=== PATIENT | female | born 1925 | race Caucasian/White ===

== ENCOUNTER 2016-08-20 21:33 | Inpatient (IN) | payer OTHER, MEDICARE ==
[~2016-08-20] VITALS: Ht 152.4 cm; Wt 69.9 kg
[~2016-08-20 21:33] MED LIST: ADVAIR 250-501 EACH INH; ENALAPRIL MALEA10 M1 PO; FERROUS SULFAT325 M3 PO; FOLIC ACID1 M1 PO; GABAPENTIN300 M2 PO; HYDROCHLOROTHIA25 M1 PO; HYDROXYCHLOROQ200 M2 PO; NASONEX17 GM NASB; NEURONTIN600 M1 PO; NEXIUM40 M1 PO; PATADAY2.5 ML OPH; PREDNISONE2.5 M1 PO; PROAIR HFA8.5 GM INH; PROPRANOLOL HCL20 M1 PO; SERTRALINE HCL50 MG PO; SULFAZINE EC500 MG PO; TRAMADOL HCL50 M1 PO; TRAMADOL50 MG PO; TRAVATAN Z5 ML OPH; TRAZODONE HCL100 M1 PO; VOLTAREN100 GM TOP
--- NOTE | 2016-08-20 21:42 | ED GI/GU/ABDOMINAL COMPLAINT ---
History of Present Illness General Chief Complaint: General Adult Stated Complaint: BIBA RECTAL BLEEDING Source: patient, old records, EMS Exam Limitations: no limitations Allergies Coded Allergies: propoxyphene (08/11/15) Reconcile Medications Albuterol Sulfate (Proair Hfa) 8.5 GM HFA.AER.AD 2 PUF INH Q4-6 PRN PRN COPD (Reported) Carvedilol (Coreg) 6.25 MG TABLET 1 TAB PO BID HEART (Reported) Cholecalciferol (Vitamin D3) (Vitamin D) 1,000 UNIT CAPSULE 5 TAB PO DAILY SUPPLEMENT (Reported) Cyanocobalamin (Vitamin B-12) (Vitamin B-12) 100 MCG TABLET 1 TAB PO DAILY SUPPLEMENT (Reported) Diclofenac Sodium (Voltaren) 1 % GEL..GRAM. 1 GM TOP 4 TIMES/DAY PAIN ( Reported) apply to affected area(s) Diphenoxylate HCl/Atropine (Lomotil 2.5-0.025 MG Tablet) 2.5 MG-0.025 MG TABLET 1 TAB PO DAILY PRN DIARRHA (Reported) Docusate Sodium (Colace) 100 MG CAPSULE 1 CAP PO BID CONSTIPATION (Reported) Enalapril Maleate 10 MG TABLET 1 TAB PO DAILY HTN (Reported) Esomeprazole (Nexium) 40 MG CAPSULE.DR 1 CAP PO DAILY GERD (Reported) Ferrous Sulfate 325 MG TABLET 1 TAB PO DAILY SUPPLEMENT (Reported) Fluticasone/Salmeterol (Advair 250-50 Diskus) 1 EACH BLST.W.DEV 1 PUF INH BID COPD (Reported) Folic Acid 1 MG TABLET 1 TAB PO DAILY SUPPLEMENT (Reported) Furosemide (Lasix) 20 MG TABLET 1 TAB PO DAILY WATER PILL (Reported) Gabapentin (Neurontin) 600 MG TABLET 1 CAP PO BID NEUROPATHY (Reported) Hydrochlorothiazide 25 MG TABLET 1 TAB PO DAILY HTN (Reported) Hydroxychloroquine Sulfate 200 MG TABLET 1 TAB PO BID RHEUMATOID ARTHRITIS ( Reported) Mometasone Furoate (Nasonex) 17 GM SPRAY.PUMP 1-2 SPRAY NASB DAILY ALLERGY ( Reported) Olopatadine HCl (Pataday) 2.5 ML DROPS 1 GTT OPH DAILY PRN ALLERGY (Reported) Polyethylene Glycol 3350 (Miralax) 17 GRAM POWD.PACK 1 PAC PO DAILY CONSTIPATION (Reported) dissolve in water Sertraline HCl 50 MG TABLET 1 TAB PO DAILY DEPRESSION (Reported) Sulfasalazine (Sulfazine EC) 500 MG TABLET.DR 1 TAB PO BID GI (Reported) Tramadol HCl 50 MG TABLET 1 TAB PO BID PRN PAIN (Reported) Travoprost (Travatan Z) 5 ML DROPS 1 GTT OPH QPM GLAUCOMA (Reported) Trazodone HCl 100 MG TABLET 0.5 TAB PO QPM INSOMNIA (Reported) Triage Nurses Notes Reviewed? yes ? n Is pt currently ? No HPI: Patient is an 89-year-old female brought in by ambulance for evaluation of lower abdominal pain and rectal bleeding. Patient reports symptoms onset at approximately 9 AM this morning. Patient reports at least 20 episodes of bright red blood per rectum since onset. Patient reports she has a very small amount of stool some bright red blood. Patient is a sharp pain that worsens with palpation. Pain is currently severe. Patient denies fevers, chills, nausea, vomiting, lightheadedness, chest pain, dyspnea. (SELMA GLEASON,DEIRDRE) Vital Signs & Intake/Output Vital Signs & Intake/Output Vital Signs Date Time Temp Pulse Resp B/P Pulse O2 O2 Flow FiO2 Ox Delivery Rate 08/22 0400 07 Nasal 2.0L Cannula 08/22 0004 98.2 78 26 132/78 08/22 0000 95 Nasal 2.0L Cannula 08/22 0000 97.8 84 33 150/90 93 Nasal 2.0L Cannula 08/21 2000 92 08/21 1800 98.0 79 28 143/71 08/21 1759 97 Nasal 2.0L Cannula 08/21 1600 100 Nasal 4.0L Cannula 08/21 1600 98.0 84 28 144/74 100 Nasal 4.0L Cannula 08/21 1258 97.3 83 22 182/79 08/21 1156 98 Room Air Room Air 08/21 1128 Room Air Room Air 08/21 0954 98.4 78 18 173/74 100 Room Air ED Intake and Output 08/22 0000 08/21 1200 Intake Total 1334 100 Output Total 275 150 Balance 1059 -50 Intake, IV 1134 100 Intake, Oral 200 Number 4 Bowel Movements Output, Stool 150 Output, Urine 275 Patient 155 lb Weight Past History Medical History Any Pertinent Medical History? 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 No (DEIRDRE GARCIA) Review of Systems Review of Systems Constitutional: Denies: chills, fever. EENTM: Reports: no symptoms. Respiratory: Denies: cough, short of breath. Cardiovascular: Denies: chest pain. GI: Reports: see HPI. Genitourinary: Reports: no symptoms. Musculoskeletal: Reports: back pain (CHRONIC). Skin: Reports: no symptoms. Neurological/Psychological: Reports: no symptoms. Hematologic/Endocrine: Reports: see HPI, bleeding. Immunologic/Allergic: Reports: no symptoms. (DEIRDRE GARCIA) Physical Exam Physical Exam General Appearance: alert, awake Head: atraumatic, normal appearance Eyes: Bilateral: PERRL, EOMI, other (PALE CONJUNCTIVA). Ears, Nose, Throat, Mouth: hearing grossly normal, moist mucous membrane Neck: normal inspection, supple, full range of motion Respiratory: normal breath sounds, no respiratory distress, lungs clear Cardiovascular: regular rate/rhythm Gastrointestinal: normal bowel sounds, soft, SUPRAPUBIC AND LEFT LOWER QUADRANT TENDERNESS Rectal: EXTERNAL HEMORRHOID. mODERATE AMOUNT OF CHIP RED BLOOD IN THE RECTAL VAULT. Back: normal inspection, normal range of motion Extremities: normal range of motion Neurologic/Psych: awake, alert, oriented x 3, normal mood/affect Skin: warm/dry Core Measures ACS in differential dx? No Severe Sepsis Present: No Septic Shock Present: No (DEIRDRE GARCIA) Progress Differential Diagnosis: upper vs lower GI bleed, diverticulitis, anemia, sepsis Diagnostic Imaging: Viewed by Me: CT Scan. Discussed w/RAD: CT Scan. Radiology Impression: PATIENT: NILDA BERRY PRESENT AGE: 89 PATIENT ACCOUNT NO: [id number] : [birth year] LOCATION: [facility] ORDERING PHYSICIAN: DEIRDRE GLEASON SERVICE DATE: 08/20/16 EXAM TYPE: CAT - CT ABD & PELVIS ANGIOGRAM EXAMINATION: CT ABDOMEN AND PELVIS without and with CONTRAST. CTA abdomen and pelvis. CLINICAL INFORMATION: Rectal bleeding. Diverticular bleed. COMPARISON: CT abdomen pelvis 04/09/2016 TECHNIQUE : Helical CT scan of abdomen and pelvis. IV contrast: 115 mL Optiray 350 Oral contrast: None Reconstruction: Coronal and sagittal reformatted images performed at CT scanner by the technologist. FINDINGS: LUNG BASES: The visualized lung bases are unremarkable. LIVER, GALLBLADDER, AND BILIARY TREE: The liver is normal in size, shape, and attenuation. No focal hepatic lesion or biliary ductal dilatation is present. Gallbladder surgically absent. No bile duct dilatation. PANCREAS: No acute change of the pancreas. No mass. No pancreatic duct dilatation. SPLEEN: Spleen normal in size and contour. No focal lesion. ADRENAL GLANDS: Mildly enlarged left adrenal gland unchanged since prior study. KIDNEYS AND URETERS: Bilateral renal cysts. Stable since prior exam. This includes low attenuating and hyperattenuating cysts. Mild cortical thinning of both kidneys. There is no renal or ureteral calculus. BLADDER: Unremarkable. GASTROINTESTINAL TRACT: Marked diverticulosis of the left colon and sigmoid with numerous scattered diverticula in the right colon. There is mucosal thickening at the mid sigmoid without edema of the pericolonic fat. A mild diverticulitis though could be present. No perforation or abscess. No bowel obstruction. On the postcontrast images there is no definite extravasation of the contrast into the lumen but there is a prominent enhancing vessel along the mesenteric side of the colon at the proximal sigmoid in the area of mucosal thickening, coronal image 72 (604), sagittal image 52 (605). This is suspicious for site of gastrointestinal hemorrhage. MESENTERY: No edema or inflammation of the mesentery. No free air or free fluid. ABDOMINAL WALL: Fat-containing umbilical hernia. Herniated fat pocket measures 6 x 3 x 5 cm. LYMPH NODES: Normal. VASCULAR: Atherosclerotic vascular wall calcifications of aorta and iliac arteries without aneurysm. PELVIC VISCERA: Multiple calcified fibroids of uterus. No adnexal abnormality. OSSEOUS STRUCTURES: Marked multilevel degenerative spondylosis of spine with disc height narrowing and endplate spurs and facet joint arthrosis. Levoscoliosis of lumbar spine. Bilateral compression screws in the right and left proximal femur. This does cause streak artifact through the lower pelvis. IMPRESSION: 1. Marked diverticulosis of the sigmoid colon with mild submucosal thickening but no significant edema of the pericolonic fat. A mild diverticulitis however is not excluded. 2. No pooling of contrast in the lumen to define intraluminal hemorrhage but there is a prominent vessel in the area of the marked diverticulosis of the proximal sigmoid colon which is suspicious for site of gastrointestinal hemorrhage. This critical result was discussed with PA. Morin on 08/21/2016, 11:15 PM and it was ascertained that the content and urgency of the report was understood at the time of direct communication. DICTATED BY: MAHAMED FIELD MD DATE/TIME DICTATED:2250 CANDLE EXTRUSION MACHINE OPERATOR:ROSA DATE/TIME TRANSCRIBED:08/20/162250 CONFIDENTIAL, DO NOT COPY WITHOUT APPROPRIATE AUTHORIZATION. <Electronically signed in Other Vendor System> SIGNED BY: MAHAMED FIELD MD 08/20/162320 Initial ED EKG: normal sinus rhythm at 83 bpm right bundle branch block, left anterior fascicular block, no acute ST/T-wave changes compared to previous EKG Prior EKG: unchanged (DEIRDRE GARCIA) Plan of Care: Orders Procedure Date/time Status ICU LAB BUNDLE 08/22 0500 Complete CBC WITHOUT DIFFERENTIAL 08/22 0500 Complete Clear Liquid Diet 08/21 L Active CBC WITHOUT DIFFERENTIAL 08/21 2200 Complete OXYGEN SETUP (GEN) 08/21 1758 Complete CBC WITHOUT DIFFERENTIAL 08/21 1400 Complete Wound Care/Dressing 08/21 1145 Complete Weight 08/21 1145 Active VTE Mechanical Prophylaxis 08/21 1145 Active Vital Signs 08/21 1145 Active Turn and Reposition 08/21 1145 Active Drains/Tubes 08/21 1145 Complete Teach/Educate 08/21 1145 Active Skin Integrity Protocol 08/21 1145 Active Skin/Pressure Ulcer Assess (Sk 08/21 1145 Active Precautions 08/21 1145 Active Pain Treatment and Response 08/21 1145 Active Nutritional Intake, Monitor 08/21 1145 Active Isolation 08/21 1145 Active CIWA 08/21 1145 Complete Patient Care Conference 08/21 1145 Active Activity/Ambulation 08/21 1145 Active RT: Evaluation 08/21 1128 Active CBC WITHOUT DIFFERENTIAL 08/21 1011 Complete VRE ACTIVE SURVIELLANCE 08/21 0857 Active ACTIVE SURVEILLANCE NARES 08/21 0857 Active THERAPIST ORDERS 08/21 UNK Complete PHARMACY COMMUNICATION FORM 08/21 UNK Active Current Medications Sig/Raza Start time Last Medication Dose Stop Time Status Admin Acetaminophen 650 MG Q6P PRN 08/21 004 AC (Tylenol) Naphazoline HCl/ 1 GTT DAILY NEEDED PRN 08/21 14 AC Pheniramine Maleate (Visine-A) Tramadol HCl 50 MG BID PRN 08/21 14 AC (Ultram) Laboratory Tests 08/22/16 0400: Anion Gap 6, Estimated GFR > 60, Glucose 80, Calcium 8.1 L, Phosphorus 3.2, Magnesium 1.4 L, Total Bilirubin 0.4, AST 37 H, ALT 33, Albumin 2.5 L, CBC w Diff NO MAN DIFF REQ, RBC 2.65 L, MCV 89.9, MCH 30.0, RDW 16.4 H, MPV 8.7, Gran % 73.9, Lymphocytes % 10.5 L, Monocytes % 10.5 H, Eosinophils % 4.8, Basophils % 0.3, Absolute Granulocytes 6.2, Absolute Lymphocytes 0.9 L, Absolute Monocytes 0.9 H, Absolute Eosinophils 0.4, Absolute Basophils 0, PUBS MCHC 33.3 08/21/16 2205: CBC w Diff NO MAN DIFF REQ, RBC 3.19 L, MCV 88.1, MCH 29.4, RDW 16.1 H, MPV 7.8, Gran % 76.4 H, Lymphocytes % 9.5 L, Monocytes % 8.7, Eosinophils % 4.3, Basophils % 1.1, Absolute Granulocytes 7.6 H, Absolute Lymphocytes 1.0 L, Absolute Monocytes 0.9 H, Absolute Eosinophils 0.4, Absolute Basophils 0.1, PUBS MCHC 33.3 08/21/16 1405: CBC w Diff NO MAN DIFF REQ, RBC 3.00 L, MCV 89.1, MCH 29.0, RDW 16.0 H, MPV 7.5, Gran % 72.3, Lymphocytes % 12.8 L, Monocytes % 9.4 H, Eosinophils % 5.3 H, Basophils % 0.2, Absolute Granulocytes 6.0, Absolute Lymphocytes 1.1 L, Absolute Monocytes 0.8 H, Absolute Eosinophils 0.4, Absolute Basophils 0, PUBS MCHC 32.6 L 08/21/16 1040: Troponin I 0.02, CBC w Diff NO MAN DIFF REQ, RBC 3.20 L, MCV 88.3, MCH 29.7, RDW 15.8 H, MPV 7.4, Gran % 68.4, Lymphocytes % 18.5 L, Monocytes % 8.6, Eosinophils % 4.3, Basophils % 0.2, Absolute Granulocytes 7.7 H, Absolute Lymphocytes 2.1, Absolute Monocytes 1.0 H, Absolute Eosinophils 0.5, Absolute Basophils 0, PUBS MCHC 33.6 08/21/16 1000: CBC w Diff Cancelled, WBC Cancelled, RBC Cancelled, Hgb Cancelled, Hct Cancelled , MCV Cancelled, MCH Cancelled, RDW Cancelled, Plt Count Cancelled, MPV Cancelled, PUBS MCHC Cancelled Microbiology 08/21 1120 UPPER RESP: Surveillance Culture - RECD 08/21 1105 GI: Surveillance Culture - RECD 08/20/2016 10:17:52 PM: Discussed with and seen by Dr. Worley. Previous hemoglobin 10.0, hemoglobin currently 7.8. GI paged to discuss. Results of complete blood count cell count discussed with patient. Remaining blood work pending. Plan for admission. 08/20/2016 10:23:33 PM: Discussed with Dr. Roque: obtain CT angio abdomen/ pelvis, admit to ICU. Patient should be given bowel prep overnight. Will see patient in the morning. Have house staff call immediately if any worsening of clinical condition. 08/20/2016 10:49:02 PM: Patient feeling chest heaviness and dyspnea after her CT scan. Lungs clear to auscultation, no signs of anaphylaxis on exam. Repeat EKG ordered. Patient has received IV contrast previously with no adverse reaction. Discussed Dr. Rizzo(with Dr. Worley present): will admit to ICU (DEIRDRE GARCIA) Comments: 08/20/2016 10:38:08 PM patient's case discussed with . Patient will be admitted to the intensive care unit that request of Dr. Wolfe. (BUSHRA MARINELLI,PARI Buck) Departure Departure Disposition: STILL A PATIENT Condition: Guarded Clinical Impression Primary Impression: Lower GI bleed Referrals: RADHA PLASCENCIA MD (PCP) Departure Forms: Customer Survey General Discharge Information (DEIRDRE GARCIA) Admission Note Spoke With: SRI RIZZO MD Documentation of Exam: Documentation of any treatments & extenuating circumstances including Concerns Regarding Discharge (functional status, medication knowledge or non-compliance, living conditions, etc.) that warrant an admission rather than observation: Given the patient's story of diverticulosis and her clinical presentation, the patient is likely suffering from a diverticular bleeding episode. Given her advanced age and medical comorbidities I feel she is at high risk of continued blood loss and hypotension and exsanguination. This makes her a poor candidate for outpatient management as it is very likely she would have great difficulty in compliance with outpatient treatmlent. It is my opinion that she requires close clinical monitoring in the intensive care unit. Serial blood pressures, serial blood counts and monitoring of patient's bleeding volume should be monitored and treated accordingly. GI consultation should be obtained. Patient will likely require a CTA of the abdomen and pelvis and a colonoscopy. Given the above the patient will require a multiple day hospitalization. PA/WET ROLLER Co-Sign Statement Statement: ED Attending supervision documentation- [x] I saw and evaluated the patient. I have also reviewed all the pertinent lab results and diagnostic results. I agree with the findings and the plan of care as documented in the PA's/WET ROLLER's documentation. [] I have reviewed the ED Record and agree with the PA's/WET ROLLER's documentation. [] Additions or exceptions (if any) to the PAs/WET ROLLER's note and plan are summarized below: [] (BUSHRA MARINELLI,PARI Buck) Critical Care Note Critical Care Note Critical Care Time: 30-74 min (DEIRDRE GARCIA)
--- NOTE | 2016-08-20 22:02 | NUR ---
PT C/O LLQ ABDOMINAL PAIN AND 20 EPISODES OF BLOODY STOOLS ONSET TODAY. PT DENIES DIARRHEA. PT REPORTS BM "SMALL PIECES" PT A/O X4. RESP UNLABORED. NSR SKIN WARM AND DRY. UNDERWEAR STAINED WITH BLOOD. PT DENIES CP, SOB, N/V, WEAKNESS AND DIZZINES
--- NOTE | 2016-08-20 22:02 | NUR ---
PT [facility]IB[facility] FROM [facility]. PER EMS PT HAVING RECTAL BLEEDING AND ABDOMINAL PAIN TODAY.
[2016-08-20 22:08] LABS: ABSOLUTE BASOPHIL COUNT 0.1 /CUMM (0.0-0.2); ABSOLUTE EOSINOPHIL COUNT 0.6 /CUMM (0.0-0.7); ABSOLUTE GRANULOCYTE CT 7.8 /CUMM (1.4-6.5); ABSOLUTE MONOCYTE COUNT 0.9 /CUMM (0.10-0.60); EOSINOPHIL % 5.3 % (0-5); MEAN CORPUSCULAR HGB 28.8 PG (27.0-31.0); MEAN CORPUSCULAR HGB CONC 32.4 G/DL (33.0-37.0); MEAN CORPUSCULAR VOLUME 88.8 FL (81.0-99.0); MEAN PLATELET VOLUME 7.7 FL (7.4-10.4); PLATELET COUNT 255 /CUMM (130-400); RBC DISTRIBUTION WIDTH 17.2 % (11.5-14.5); WHITE BLOOD CELL COUNT 11.4 /CUMM (4.8-10.8)
[2016-08-20 22:14] LABS: PT 12.2 SEC (9.4-12.5)
--- NOTE | 2016-08-20 22:22 | NUR ---
PT C/O 03/18 PAIN. PT MEDICATED WITH MORPHINE PER ORDER
--- NOTE | 2016-08-20 22:56 | NUR ---
PT BACK FROM CT. TOLERATED WELL
--- NOTE | 2016-08-20 23:21 | CT SCAN REPORT ---
EXAMINATION: CT ABDOMEN AND PELVIS without and with CONTRAST. CTA abdomen and pelvis. CLINICAL INFORMATION: Rectal bleeding. Diverticular bleed. COMPARISON: CT abdomen pelvis 04/09/2016 TECHNIQUE: Helical CT scan of abdomen and pelvis. IV contrast: 115 mL Optiray 350 Oral contrast: None Reconstruction: Coronal and sagittal reformatted images performed at CT scanner by the technologist. FINDINGS: LUNG BASES: The visualized lung bases are unremarkable. LIVER, GALLBLADDER, AND BILIARY TREE: The liver is normal in size, shape, and attenuation. No focal hepatic lesion or biliary ductal dilatation is present. Gallbladder surgically absent. No bile duct dilatation. PANCREAS: No acute change of the pancreas. No mass. No pancreatic duct dilatation. SPLEEN: Spleen normal in size and contour. No focal lesion. ADRENAL GLANDS: Mildly enlarged left adrenal gland unchanged since prior study. KIDNEYS AND URETERS: Bilateral renal cysts. Stable since prior exam. This includes low attenuating and hyperattenuating cysts. Mild cortical thinning of both kidneys. There is no renal or ureteral calculus. BLADDER: Unremarkable. GASTROINTESTINAL TRACT: Marked diverticulosis of the left colon and sigmoid with numerous scattered diverticula in the right colon. There is mucosal thickening at the mid sigmoid without edema of the pericolonic fat. A mild diverticulitis though could be present. No perforation or abscess. No bowel obstruction. On the postcontrast images there is no definite extravasation of the contrast into the lumen but there is a prominent enhancing vessel along the mesenteric side of the colon at the proximal sigmoid in the area of mucosal thickening, coronal image 72 (604), sagittal image 52 (605). This is suspicious for site of gastrointestinal hemorrhage. MESENTERY: No edema or inflammation of the mesentery. No free air or free fluid. ABDOMINAL WALL: Fat-containing umbilical hernia. Herniated fat pocket measures 6 x 3 x 5 cm. LYMPH NODES: Normal. VASCULAR: Atherosclerotic vascular wall calcifications of aorta and iliac arteries without aneurysm. PELVIC VISCERA: Multiple calcified fibroids of uterus. No adnexal abnormality. OSSEOUS STRUCTURES: Marked multilevel degenerative spondylosis of spine with disc height narrowing and endplate spurs and facet joint arthrosis. Levoscoliosis of lumbar spine. Bilateral compression screws in the right and left proximal femur. This does cause streak artifact through the lower pelvis. IMPRESSION: 1. Marked diverticulosis of the sigmoid colon with mild submucosal thickening but no significant edema of the pericolonic fat. A mild diverticulitis however is not excluded. 2. No pooling of contrast in the lumen to define intraluminal hemorrhage but there is a prominent vessel in the area of the marked diverticulosis of the proximal sigmoid colon which is suspicious for site of gastrointestinal hemorrhage. This critical result was discussed with PA. Morin on 08/21/2016, 11:15 PM and it was ascertained that the content and urgency of the report was understood at the time of direct communication.
--- NOTE | 2016-08-20 23:48 | History & Physical ---
ORACIO REYNOLDS MD 08/20/16 6208: General Information and HPI MD Statement: I have seen and personally examined NILDA BERRY and documented this H&P. The patient is a 89 year old F who presented with a patient stated chief complaint of rectal bleeding. Source of Information: patient, old records Exam Limitations: no limitations History of Present Illness: Ms. 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 As per patient, yesterday she had sudden onset of 8/10 lower abdominal/left lower quadrant pain that was non-radiating and associated with a general feeling of malaise. This pain persisted until this morning when around 9 AM she had the first of about 20 bowel movements with bright red blood. She has never experienced this before, is not currently on anticoagulation/aspirin and noted no rectal pain on defecation. Patient denied clots in her stool. Associated symptoms include malaise, mild shortness of breath, lower abdominal pain and bright red blood per rectum. She currently denies fever, chills, chest pain, palpitations, cough, nausea, vomiting, hemoptysis, dysuria, hematuria or lower extremity weakness. Social history is negative for tobacco (current or prior), alcohol or illicit drug use. She lives alone and uses a walker to ambulate. Patient has had several colonoscopies in the past which have shown begnin polyps; the most recent was about 5 years ago. Patient reports her code status as DNR/DNI. Allergies/Medications Allergies: Coded Allergies: propoxyphene (08/11/15) Home Med list Albuterol Sulfate (Proair Hfa) 8.5 GM HFA.AER.AD 2 PUF INH Q4-6 PRN PRN COPD (Reported) Carvedilol (Coreg) 6.25 MG TABLET 1 TAB PO BID HEART (Reported) Cholecalciferol (Vitamin D3) (Vitamin D) 1,000 UNIT CAPSULE 5 TAB PO DAILY SUPPLEMENT (Reported) Cyanocobalamin (Vitamin B-12) (Vitamin B-12) 100 MCG TABLET 1 TAB PO DAILY SUPPLEMENT (Reported) Diclofenac Sodium (Voltaren) 1 % GEL..GRAM. 1 GM TOP 4 TIMES/DAY PAIN ( Reported) apply to affected area(s) Diphenoxylate HCl/Atropine (Lomotil 2.5-0.025 MG Tablet) 2.5 MG-0.025 MG TABLET 1 TAB PO DAILY PRN DIARRHA (Reported) Docusate Sodium (Colace) 100 MG CAPSULE 1 CAP PO BID CONSTIPATION (Reported) Enalapril Maleate 10 MG TABLET 1 TAB PO DAILY HTN (Reported) Esomeprazole (Nexium) 40 MG CAPSULE.DR 1 CAP PO DAILY GERD (Reported) Ferrous Sulfate 325 MG TABLET 1 TAB PO DAILY SUPPLEMENT (Reported) Fluticasone/Salmeterol (Advair 250-50 Diskus) 1 EACH BLST.W.DEV 1 PUF INH BID COPD (Reported) Folic Acid 1 MG TABLET 1 TAB PO DAILY SUPPLEMENT (Reported) Furosemide (Lasix) 20 MG TABLET 1 TAB PO DAILY WATER PILL (Reported) Gabapentin (Neurontin) 600 MG TABLET 1 CAP PO BID NEUROPATHY (Reported) Hydrochlorothiazide 25 MG TABLET 1 TAB PO DAILY HTN (Reported) Hydroxychloroquine Sulfate 200 MG TABLET 1 TAB PO BID RHEUMATOID ARTHRITIS ( Reported) Mometasone Furoate (Nasonex) 17 GM SPRAY.PUMP 1-2 SPRAY NASB DAILY ALLERGY ( Reported) Olopatadine HCl (Pataday) 2.5 ML DROPS 1 GTT OPH DAILY PRN ALLERGY (Reported) Polyethylene Glycol 3350 (Miralax) 17 GRAM POWD.PACK 1 PAC PO DAILY CONSTIPATION (Reported) dissolve in water Sertraline HCl 50 MG TABLET 1 TAB PO DAILY DEPRESSION (Reported) Sulfasalazine (Sulfazine EC) 500 MG TABLET.DR 1 TAB PO BID GI (Reported) Tramadol HCl 50 MG TABLET 1 TAB PO BID PRN PAIN (Reported) Travoprost (Travatan Z) 5 ML DROPS 1 GTT OPH QPM GLAUCOMA (Reported) Trazodone HCl 100 MG TABLET 0.5 TAB PO QPM INSOMNIA (Reported) Compliance With Home Meds: FAIR Past History Medical History Neurological: NEUROPATHY TREMORS, ESSENTIAL EENT: NONE Cardiovascular: hypertension Respiratory: COPD, Gastrointestinal: irritable bowel syndrome Hepatic: NONE Renal: NONE Musculoskeletal: OSTEOARTHRITIS RHEUMATOID ARTHRITIS BACK FRACTURE Psychiatric: DEPRESSION, ANXIETY Endocrine: PREDIABETES Blood Disorders: IRON DEFIENCY ANEMIA Cancer(s): NONE NEWS PRODUCER/Reproductive: NONE History of MRSA: Yes History of VRE: No History of CDIFF: No Surgical History Surgical History: BILAT HIP AND BILAT WRIST Past Family/Social History Psychosocial History Who Do You Live With? self Services at Home: None Primary Language: Maori Smoking Status: Never Smoked ETOH Use: denies use Illicit Drug Use: denies illicit drug use Living Will? yes Functional Ability ADLs Independent: dressing, eating, toileting, bathing. Ambulation: walker IADLs Independent: shopping, housework, finances, food prep, telephone, transportation , medication admin. Review of Systems Review of Systems Constitutional: Reports: malaise. Denies: chills, diaphoresis, fever. EENTM: Denies: visual changes, hearing changes, nasal congestion, throat pain. Cardiovascular: Denies: chest pain, palpitations, syncope. Respiratory: Reports: short of breath. Denies: cough, sputum production, wheezing. GI: Reports: abdominal pain, bloody stool. Denies: bloating, constipation, diarrhea , nausea, vomiting. Genitourinary: Denies: dysuria, hematuria. Musculoskeletal: Denies: back pain. Skin: Denies: erythema, rash. Neurological/Psychological: Denies: ataxia, confusion, headache, numbness, tingling. Hematologic/Endocrine: Denies: bruising, polyuria. Immunologic/Allergic: Denies: splenectomy. All Other Systems: Reviewed and Negative Exam & Diagnostic Data Last 24 Hrs of Vital Signs/I&O Vital Signs Date Time Temp Pulse Resp B/P Pulse O2 O2 Flow FiO2 Ox Delivery Rate 08/20 2257 87 18 142/75 95 Room Air 08/20 2135 96.2 92 18 145/64 95 Room Air Intake & Output 08/21 0800 08/21 0000 08/20 1600 Intake Total 50 Output Total Balance 50 Intake, IV 50 Physical Exam General Appearance Alert, Oriented X3, Cooperative, Mild Distress Skin Generalized pallor without lesion or rash. HEENT Atraumatic, PERRLA, EOMI, Mucous Membr. moist/pink, Arcus senilis Neck Supple, No JVD, No thryomegaly, +2 Carotid Pulse wo Bruit Lymphatic Cervical nl Cardiovascular Normal S1, Normal S2, +systolic murmur, 2/6 Lungs Clear to Auscultation, Normal Air Movement Abdomen Normal Bowel Sounds, Lower abdominal/LLQ tenderness on palpation. No rebound. Neurological Normal Speech, Normal Tone Extremities No Clubbing, No Cyanosis, No tenderness to palpation bilaterally. Vascular Pulses Symmetrical Last 24 Hrs of Labs/Herb: Laboratory Tests 08/20/16 2200: Anion Gap 8, Estimated GFR 39 L, BUN/Creatinine Ratio 20.8, Glucose 97, Lactic Acid 0.9, Calcium 9.5, Total Bilirubin 0.4, AST 39 H, ALT 33, Alkaline Phosphatase 142 H, Troponin I 0.02, Total Protein 5.7 L, Albumin 3.3 L, Globulin 2.4, Albumin/Globulin Ratio 1.4, PT 12.2, INR 1.16, CBC w Diff NO MAN DIFF REQ, RBC 2.70 L, MCV 88.8, MCH 28.8, RDW 17.2 H, MPV 7.7, Gran % 68.0, Lymphocytes % 17.8 L, Monocytes % 7.9, Eosinophils % 5.3 H, Basophils % 1.0, Absolute Granulocytes 7.8 H, Absolute Lymphocytes 2.0, Absolute Monocytes 0.9 H, Absolute Eosinophils 0.6, Absolute Basophils 0.1, PUBS MCHC 32.4 L Microbiology 08/20 2350 BLOOD: Blood Culture - ORD 08/20 2350 BLOOD: Blood Culture - ORD Diagnostic Data EKG Results NSR HR 83 with PSCs, LAFB, RBBB, QTC 447, inverted T waves in V1, V3, III, aVF. Other Results Abdomen/Pelvis CT: IMPRESSION: 1. Marked diverticulosis of the sigmoid colon with mild submucosal thickening but no significant edema of the pericolonic fat. A mild diverticulitis however is not excluded. 2. No pooling of contrast in the lumen to define intraluminal hemorrhage but there is a prominent vessel in the area of the marked diverticulosis of the proximal sigmoid colon which is suspicious for site of gastrointestinal Assessment/Plan Assessment: Ms. Berry is an 89 year old female with PMH COPD not on home oxygen, HTN, rheumatoid arthritis, GERD, hiatal hernia, spastic esophagus, lactose intolerance, iron deficiency anemia, depression, glaucoma and insomnia with presents with chief complaint of lower abdominal pain and bright red blood per rectum. This lower abdominal pain began suddenly yesterday and persistent until this morning when she had several bloody bowel movements. Associated symptoms included lethargy and mild shortness of breath. In the ED: Vital signs showed T 96.2, HR 92, RR 18, BP 145/64 and O2 saturation of 95% on room air. CBC was significant for mild leukocytosis to 11.4 without bandemia and BEP was significant for BUN/cre 27/1.3. ASt 39, alk phos 142, and INR 1.16. CTA abdomen/pelvis showed marked diverticulosis of the sigmoid colon with mild submucosal thickening but no significant edema of the pericolonic fat. A mild diverticulitis however is not excluded. No pooling of contrast in the lumen to define intraluminal hemorrhage but there is a prominent vessel in the area of the marked diverticulosis of the proximal sigmoid colon which is suspicious for site of gastrointestinal hemorrhage. Patient is admitted to the intesive care unit and the following is the management: 1. Lower GI Bleed with Acute Blood Loss Anemia * Continuous telemetry monitoring in the ICU * 2 large bore IVs * Patient typed & screened and blood transfusion consent obtained in the ED * With H&H low to 7.8/24 (goal Hgb 8), will order 1 U PRBC and follow up repeat CBC Q4 hours * GI suggested NPO status with golytely for prepartion of colonoscopy tomorrow ( likely embolization) * IVF with normal saline at 150 cc/h (once blood is hung will lower rate to 75 cc/h) * IV flagyl and ceftriaxone as CTA showed inflammatory changes of the bowel and white count slightly elevated * Follow blood cultures x 2, monitor for fevers * Morphine for severe pain, IV protonix 40 mg daily, sulfasalazine 2. Rule out ACS * Patient currently denies chest pain or ischemic symptoms, however in setting of acute blood loss anemia and many medical comorbidities, will rule out ACS * Troponin/EKG x 3 * Continuous telemetry monitoring 3. History of HTN * Hold all hypertensives for now in setting of active bleeding * Monitor vital signs closely and once patient no longer bleeding consider reinstituting antihypertensives slowly 4. COPD * Patient currently stable on room air * Monitor oxygen saturation and provide supplemental O2/TRC nebs as needed * Continue symbicort 5. History of iron deficiency anemia * Iron panel ordered, f/u results * Resume ferrous sulfate daily after patient started on regular diet DNR/DNI DVTP: ALPS NPO pending GI intervention Mild to severe pain pathway As Ranked By This Provider Problem List: 1. Lower GI bleed 2. COPD 3. Benign essential hypertension 4. Acute blood loss anemia 5. GERD (gastroesophageal reflux disease) 6. Spastic esophagus Core Measures/Miscellaneous Acute Coronary Syndrome ACS Diagnosis: No Cerebrovascular Accident CVA/TIA Diagnosis: No Congestive Heart Failure CHF Diagnosis: No Venous Thromboembolism VTE Risk Factors: Acute medical illness, Age > 40, Obesity No [facility] prophylaxis d/t: No contraindications No VTE Pharm Prophylaxis d/t: No contraindications VTE Diagnosis: No VTE Type: NONE VTE Confirmed by (Test): NONE Severe Sepsis Severe Sepsis Present: No Septic Shock Septic Shock Present: No Miscellaneous Documentation Attending Case Discussed With: SRI GREEN MD Primary Care Physician: RADHA PLASCENCIA MD Patient sees these Specialists Gastroenterology, phyisican unknown. Level of Patient Care: Critical Care (CRI) NICOLAS PAYNE 08/21/16 0102: Resident Review Statement Resident Statement: examined this patient, discussed with international marketing executive, agreed with international marketing executive, amended to note Other Findings: 89-year-old female with past medical history of rheumatoid arthritis, hypertension, COPD?, IBS, IRON deficiency anemia, T12 compression fracture, insomnia, GERD, depression and anxiety nd to the hospital with chief complaint of abdominal pain and multiple episodes of blood per rectum. Patient reported she reports having abdominal pain since yesterday which gotten worse and since this morning, she started having bloody stools and subsequently bright red blood per rectum for at least 20 times with sustained abdominal pain. Patient denies any nausea, vomiting, fevers, chills, recent outside fluid intake. However she does report of feeling weak and to shortness of breath today. Patient reported Multiple colonoscopies before and she does report of some bowel problems?, And to had a last colonoscopy was less than 5 years ago and showed some polyps. However there are no information available about the colonoscopy in the [facility] system for now. Vital signs on admission were stable Patient is alert and oriented but in pain Headache atraumatic Dry mucosa Heart NL s1 s2 systolic murmur chest clear bilaterally Lower abdominal tenderness without any rebound Bilateral at least 2+ lower extremities edema rectal exam was reportedly showed external hemorrhoids and BRBPR Hemoglobin 7.8, to 11.4, creatinine 1.3, BUN 27, AST 39, ALP 142 EKG showed sinus rhythm, 83, RBBB, LAFB, QTC 447, inverted T's in V1 V3, lead 3, lead 2 abdomen CTA IMPRESSION: 1. Marked diverticulosis of the sigmoid colon with mild submucosal thickening but no significant edema of the pericolonic fat. A mild diverticulitis however is not excluded. 2. No pooling of contrast in the lumen to define intraluminal hemorrhage but there is a prominent vessel in the area of the marked diverticulosis of the proximal sigmoid colon which is suspicious for site of gastrointestinal hemorrhage. Assessment and plan #Lower GI bleeding with possible diverticulitis -Admit to ICU -2 IV lines -Transfuse blood to keep hemoglobin over 8 -Dr. Roque already aware, will scope tomorrow -Normal saline for now 150 mL per hour and then while getting the transfusion 75 mL per hour -IV PPI daily -Check iron studies -Bowel prep -Continue iron pills,Sulfasalazine -NPO for now -Hold all antihypertensive medications and Lasix -CBC every 4 hours for now -Flagyl was every 8 hours and ceftriaxone daily for now -Blood cultures 2 -IV morphine for severe pain #weakness mild shortness of breath -EKG troponin 3 #Depression -Hold sertraline and trazodone for now #RA -Continue hydroxychloroquine #abNormal LFTs -ICU bundle in the morning -possibly due to inflammation of the bowels #Multiple medication in the med list -We help most of the patient's unnecessary medications for tomorrow. They can be restarted after the colonoscopy. DNR/DNI, NPO, DVT prophylaxis is Alps, Tylenol and morphine for pain NORMA,AARNADIA 08/21/16 0506: Attending MD Review Statement Attending Statement Attending MD Statement: examined this patient, discuss w/resident/PA/TARGET TRIMMER, agreed w/resident/PA/TARGET TRIMMER, discussed with family, reviewed EMR data (avail), reviewed images, amended to note Attending Assessment/Plan: cc: abdominal pain and bloody BM PMHX: COPD, HTN, RA, lactose intolerance, IBS, T2 compression fracture, tremors, depression, abnormal gait Patient was brought in by ambulance from assisted living for lower abdominal pain and rectal bleeding. Abdominal pain started last night, diffuse, lower abdomen, nonradiating. She slept overnight fine but pain persisted after waking up. It was followed by bloody bowel movement, at least 20 episodes throughout the day, of bright red blood per rectum since onset. Stools are, multiple, watery and scanty, not associated with cramping or tenesmus. No LOC, CP, palpitations, fevers, chills, nausea, vomiting, lightheadedness, dyspnea. Patient is very anxious, her sister is admitted today in [facility] for worsening dementia. Her brother and sister her immediate family, her niece Tequila Mercer is healthcare proxy. Vitals: Afebrile, no tachycardia, RR 18, blood pressure 144/64, saturating well on room air. On examination a O 3, anxious, no acute distress, hard of hearing, decreased vision, neck supple, no lymphadenopathy, no JVD, mucosa dry CVS: S1-S2 is irregular RS: Clear to auscultate, Abdo: soft, tender RLQ,LLQ, suprapubic, no guarding or rigidity, bowel sounds present, no pedal edema, no focal neurological deficits Labs: WBC 11.4, hemoglobin 7.8 ( 10 in Apr, 2016), MCV 88.8, RDW 17.2, platelets 255. BUN 27, creatinine 1.3 (0.8 in Apr, 2016), lactic acid 0.9, alkaline phosphatase 142, troponin 0.02 CTA abdomen and pelvis: 1. Marked diverticulosis of the sigmoid colon with mild submucosal thickening but no significant edema of the pericolonic fat. A mild diverticulitis however is not excluded. 2. No pooling of contrast in the lumen to define intraluminal hemorrhage but there is a prominent vessel in the area of the marked diverticulosis of the proximal sigmoid colon which is suspicious for site of gastrointestinal hemorrhage. A and P #1 lower GI bleed with abdominal pain: Bright red blood on rectal exam, probably diverticular in origin, ischemia ruled out - Admit to ICU - Closely watch vitals for hemodynamic stability - Type and screen, transfuse 2 units PRBC - Trend H&H every 4 hours 3 - GI was informed from ER, official consult for a.m., bowel prep for probable colonoscopy tomorrow - Trend lactate - Continue IV NS at 150 mL per hour - Hold antihypertensives - Trend troponin, repeat EKG to rule out demand ischemia - Protonix 40 mg IV daily, when necessary Zofran, - Adequate pain control, with when necessary IV morphine or Dilaudid - Mild diverticulitis cannot be ruled out: Continue IV ceftriaxone and metronidazole for diverticulitis and bacterial translocation - Nothing by mouth #2 acute blood loss anemia - Add iron studies to previous sample in lab #3 history of hypertension: Hold all her home blood pressure medications #4 DVT prophylaxis: Alps only, active GI bleed #5 history of COPD, IBS, RA, compression fracture, depression, tremors: Resume medications tomorrow, once patient is stabilized. I spoke to patient's niece on phone, updated about her clinical condition. Guarded prognosis. Patient mentions DNR DNI TTS 30 min
[2016-08-20] MEDS ORDERED: COREG6.25 M1 PO (23:53)
[2016-08-20] MEDS ORDERED: VITAMIN D1000 UNI1 PO (23:54)
[2016-08-20] MEDS ORDERED: COLACE100 M1 PO (23:55)
[2016-08-20] MEDS ORDERED: VITAMIN B-12100 MC1 PO (23:55)
[2016-08-20] MEDS ORDERED: LOMOTIL 2.5-0.1 EACH PO (23:55)
[2016-08-21] MEDS ORDERED: MIRALAX17 G1 PO (00:06)
[2016-08-21] MEDS ORDERED: VOLTAREN100 GM TOP (00:07)
--- NOTE | 2016-08-21 00:12 | NUR ---
PT MEDICATED WITH 4MG MORPHINE HUNG IN 50ML NS BAG.
[2016-08-21] MEDS ORDERED: LASIX20 M1 PO (00:24)
--- NOTE | 2016-08-21 01:31 | NUR ---
BLOOD TRANSFUSION STARTED
--- NOTE | 2016-08-21 02:42 | NUR ---
BLODD TRANFUSION CONTINUES. NO REACTION NOTED. PT A/O X4. RESP UNLABORED. SKIN WARMA AND DRY. NSR ON THE MONITOR. WILL CONTINUE TO MONITOR.
--- NOTE | 2016-08-21 02:43 | NUR ---
PT DENIES PAIN AT THIS TIME
[2016-08-21 02:48] LABS: ABSOLUTE BASOPHIL COUNT 0 /CUMM (0.0-0.2); ABSOLUTE EOSINOPHIL COUNT 0.4 /CUMM (0.0-0.7); ABSOLUTE GRANULOCYTE CT 5.6 /CUMM (1.4-6.5); ABSOLUTE LYMPH COUNT 1.8 /CUMM (1.2-3.4); ABSOLUTE MONOCYTE COUNT 0.7 /CUMM (0.10-0.60); BASOPHIL % 0.4 % (0.0-2.0); GRANULOCYTE % 65.4 % (42.2-75.2); HEMATOCRIT 21.5 % (37-47); MEAN CORPUSCULAR HGB 29.9 PG (27.0-31.0); MEAN CORPUSCULAR VOLUME 88.1 FL (81.0-99.0); MEAN PLATELET VOLUME 7.3 FL (7.4-10.4); PLATELET COUNT 200 /CUMM (130-400); RBC DISTRIBUTION WIDTH 16.4 % (11.5-14.5); RED BLOOD CELL CT 2.44 /CUMM (4.20-5.40); WHITE BLOOD CELL COUNT 8.6 /CUMM (4.8-10.8)
--- NOTE | 2016-08-21 03:02 | NUR ---
CRITICAL TEST RESULTS [id number] NILDA BERRY 89 F TESTS AND RESULTS: HGB 7.3 HCT 21.5 Results received and read back by: TOOTIE MCCLAIN Results received date and time: 08/21/16 0303 The following provider was notified of the results, and read the results back: KERRY MARINELLI Notified date and time: 08/21/16 at 0300
--- NOTE | 2016-08-21 03:35 | NUR ---
BLOOD TRANSFUSION COMPLETE. NO REACTION NOTED
--- NOTE | 2016-08-21 03:42 | NUR ---
PT C/O 12/16 PAIN. PT MEDICATED WITH 4MG MORPHINE PER ORDER.
--- NOTE | 2016-08-21 03:43 | NUR ---
PT TO COMMODE WITH HELP. NO BLEEDING NOTED ON BED. PT ATTEMPTED TO HAVE BM. BLOOD CLOTS NOTED IN COMMODE. HOUSESTAFF AWARE. PT A/O X4. RESP UNLABORED. NSR ON THE MONITOR. PT DENIES CP, SOB AND DIZZINESS. WILL CONTINUE TO MONITOR.
--- NOTE | 2016-08-21 04:27 | NUR ---
HOUSE STAFF AT BEDSIDE
--- NOTE | 2016-08-21 04:43 | Cons- Gastroenterology ---
See Addendum General Information and HPI Consulting Request Date of Consult: 08/21/16 Requested By: SRI GREEN MD Reason for Consult: I was called by the [facility] on behalf of the hospitalist service, shortly before 11 PM on 08/20/2016, for probable lower GI bleed, full labs pending at that time. Source of Information: patient, old records Exam Limitations: anxiety/AKIACHAK History of Present Illness: 89-year-old female, DNR/DNR (although okay to temporarily intubated for procedure), HTN, non-DM, COPD without home O2 (nonsmoker, probable occupational exposure), RA/DJD (on Sulfasalazine, Plaquenil and possibly Mobic), with extensive past history, followed primarily in the [place] area, with IBS, GERD (on Nexium 40 mg daily for years; remote EGD in [place] with unknown results), history of "spastic esophagus," lactose intolerance, anxiety, depression, insomnia, neuropathy, T12 compression fracture, osteopenia, essential tremor, chronic iron deficiency anemia (vs. anemia of chronic disease- baseline Hgb 10- requiring transfusions in the past), history of pneumonia 2012, mitral regurgitation, mild pulmonary hypertension, glaucoma ("legeally blind"), CCKY, APPY, FCBD, right wrist surgery for chronic osteomelitis, B/L ORIF hips, diverticulosis coli, history of colon adenoma, presenting to the [facility] 08/20/2016 at 9:33 PM, BIBA from home (lives alone, in assisted living- uses walker), complaining of multiple (20) episodes of rectal bleeding starting 9 AM that morning, with questionable associated left lower quadrant pain vs. left hip pain. Upon arrival, BP 145/64, P 92, R 18, T 96.2, O2 sat RA 95%. The patient was given IV morphine and IV NS 500 mL fluid bolus. I did not see any documented orthostatic changes. Initially, the bleeding started after passing a few small pieces of brown stool, but the vast majority of the bleeding was spontaneous in nature. There was no melena, although the patient claims her stools are occasionally dark "from her iron". There was no associated chest pain or increase of her baseline shortness of breath. She denied any palpitations or LOC. Aside from the questionable Mobic, the patient does not take any NSAIDs, aspirin, or anticoagulants. Upon arrival, her underwear was stained with blood. The patient claims her bowel movements are anywhere from once a day to every 3 days, and are chronically irregular. There is no long-standing diarrhea, constipation, obstipation, change in stool caliber, or tenesmus. She denies any previous history of GI bleeding or peptic ulcer disease. Her reflux is relatively stable on Nexium. She denies any hematemesis, odynophagia, dysphagia , early satiety, weight loss, fevers, chills, or jaundice. Her appetite is fair. She denies any symptoms of UTI or URI. She denies any history of bleeding disorders. There was no hemoptysis, hematuria, or vaginal spotting. There is no history of abdominal trauma. She denies any history of AAA. She is a nonsmoker and denies EtOH. 08/20/2016: *Admission H/H 7.8/24, dropping to 7.3/21.5 (see below) & patient was given 1 unit PRBC. She is awaiting an ICU bed. She claims her niece and nephew are aware that she is in the hospital. Has no children. Her POA is her nephew, Yared Mercer ([phone]), but she claims she makes her own medical decisions. *A 1 gallon per day with GoLYTELY was ordered, however the patient was not compliant with this. *She refuses NG tube placement for purge. According to the [employer] computer, 12/18/2006: Colonoscopy to the cecum per Dr. Bonds- extensive pandiverticulosis coli, small internal hemorrhoids, snare polypectomy of 5 mm benign tubular adenoma from the transverse colon. The patient apparently had a subsequent colonoscopy in [place], [place], around 2011, per Dr. Aggarwal & "polyps removed," per patient. 08/20/2016: 10 p.m. Admissiomn labs- WBC 11.4 (no left shift), H/H 7.8/24, MCV 88.8, RDW 17.2, PLT 255, PT 12.2, INR 1.16, glucose 97, BUN/Cr 27/1.3, GFR 39, Na 139, K 4.1, HCO3 26, lactate 0.9, albumin 3.3, globulin 2.4, TBil 0.4, borderline alk phos 142, AST 39, ALT 33, troponin .02, Fe 36, TIBC 252 (c/w chronic disease), ferritin 37.2 08/21/2016: 2:30 a.m.- WBC 8.6, H/H 7.3/21.5, PLT 200 The patient was empirically started on IV Ceftriaxone 1g daily & IV Flagyl 500 mg Q8h, per the medical house staff, for soft findings of questionable sigmoid diverticulitis on CT. 08/20/2016: EKG- Sinus arrhythmia @ 77, RBBB, LAHB, flipped T in II & F, PRWP. 08/20/2016: CT ABD & PELVIS ANGIOGRAM (per ER)- 1. Marked diverticulosis of the sigmoid colon with mild submucosal thickening but no significant edema of the pericolonic fat. A mild diverticulitis, however, is not excluded. 2. No pooling of contrast in the lumen to define intraluminal hemorrhage but there is a *prominent vessel in the area of the marked diverticulosis of the proximal sigmoid colon which is suspicious for site of gastrointestinal hemorrhage. 3. 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 Fat-containing umbilical hernia. 4. Atherosclerotic vascular wall calcifications of aorta and iliac arteries, without aneurysm. 5. Bilateral renal cyst. Mild cortical thinning of kidneys bilaterally. Uterine fibroids. 6. Markedly DJD. Levoscoliosis of L-spine. B/L ORIF hips. Allergies/Medications Allergies: Coded Allergies: propoxyphene (08/11/15) Home Med List: Albuterol Sulfate (Proair Hfa) 8.5 GM HFA.AER.AD 2 PUF INH Q4-6 PRN PRN COPD (Reported) Carvedilol (Coreg) 6.25 MG TABLET 1 TAB PO BID HEART (Reported) Cholecalciferol (Vitamin D3) (Vitamin D) 1,000 UNIT CAPSULE 5 TAB PO DAILY SUPPLEMENT (Reported) Cyanocobalamin (Vitamin B-12) (Vitamin B-12) 100 MCG TABLET 1 TAB PO DAILY SUPPLEMENT (Reported) Diclofenac Sodium (Voltaren) 1 % GEL..GRAM. 1 GM TOP 4 TIMES/DAY PAIN ( Reported) apply to affected area(s) Diphenoxylate HCl/Atropine (Lomotil 2.5-0.025 MG Tablet) 2.5 MG-0.025 MG TABLET 1 TAB PO DAILY PRN DIARRHA (Reported) Docusate Sodium (Colace) 100 MG CAPSULE 1 CAP PO BID CONSTIPATION (Reported) Enalapril Maleate 10 MG TABLET 1 TAB PO DAILY HTN (Reported) Esomeprazole (Nexium) 40 MG CAPSULE.DR 1 CAP PO DAILY GERD (Reported) Ferrous Sulfate 325 MG TABLET 1 TAB PO DAILY SUPPLEMENT (Reported) Fluticasone/Salmeterol (Advair 250-50 Diskus) 1 EACH BLST.W.DEV 1 PUF INH BID COPD (Reported) Folic Acid 1 MG TABLET 1 TAB PO DAILY SUPPLEMENT (Reported) Furosemide (Lasix) 20 MG TABLET 1 TAB PO DAILY WATER PILL (Reported) Gabapentin (Neurontin) 600 MG TABLET 1 CAP PO BID NEUROPATHY (Reported) Hydrochlorothiazide 25 MG TABLET 1 TAB PO DAILY HTN (Reported) Hydroxychloroquine Sulfate 200 MG TABLET 1 TAB PO BID RHEUMATOID ARTHRITIS ( Reported) Mometasone Furoate (Nasonex) 17 GM SPRAY.PUMP 1-2 SPRAY NASB DAILY ALLERGY ( Reported) Olopatadine HCl (Pataday) 2.5 ML DROPS 1 GTT OPH DAILY PRN ALLERGY (Reported) Polyethylene Glycol 3350 (Miralax) 17 GRAM POWD.PACK 1 PAC PO DAILY CONSTIPATION (Reported) dissolve in water Sertraline HCl 50 MG TABLET 1 TAB PO DAILY DEPRESSION (Reported) Sulfasalazine (Sulfazine EC) 500 MG TABLET.DR 1 TAB PO BID GI (Reported) Tramadol HCl 50 MG TABLET 1 TAB PO BID PRN PAIN (Reported) Travoprost (Travatan Z) 5 ML DROPS 1 GTT OPH QPM GLAUCOMA (Reported) Trazodone HCl 100 MG TABLET 0.5 TAB PO QPM INSOMNIA (Reported) Current Medications: Current Medications Sig/Raza Start time Last Medication Dose Route Stop Time Status Admin Acetaminophen 650 MG Q6P PRN 08/21 0045 AC PO Budesonide/ 2 PUF BID 08/21 1000 AC Formoterol Fumarate INH Ceftriaxone Sodium 0 .STK-MED ONE 08/20 2356 DC .ROUTE Ceftriaxone Sodium 1,000 MG Q24H 08/20 2345 AC 08/21 IV 0026 Ferrous Sulfate 325 MG DAILY 08/21 1000 AC PO Folic Acid 1 MG DAILY 08/21 1000 AC PO Hydromorphone HCl 0 .STK-MED ONE 08/21 0448 DC .ROUTE Hydromorphone HCl 0.6 MG ONCE ONE 08/21 0445 DC 08/21 IV 08/21 0446 0451 Hydroxychloroquine 200 MG BID 08/21 1000 AC Sulfate PO Latanoprost 1 GTT AT BEDTIME 08/21 2200 AC OPH Metronidazole 500 MG IQ8 08/21 0000 AC 08/21 N/A 1 UNIT IV 0039 Morphine Sulfate 0 .STK-MED ONE 08/21 0341 DC .ROUTE Morphine Sulfate 2 MG Q4P PRN 08/21 0045 AC 08/21 IV 0342 Morphine Sulfate 0 .STK-MED ONE 08/20 2356 DC .ROUTE Morphine Sulfate 4 MG ONCE ONE 08/20 2345 DC 08/21 IV 08/20 2346 0012 Morphine Sulfate 0 .STK-MED ONE 08/20 2214 DC .ROUTE Morphine Sulfate 4 MG ONCE ONE 08/20 2200 DC 08/20 IV 08/20 2201 2214 Naphazoline HCl/ 1 GTT DAILY NEEDED PRN 08/21 0015 AC Pheniramine Maleate OPH Pantoprazole Sodium 0 .STK-MED ONE 08/21 0114 DC IV Pantoprazole Sodium 40 MG DAILY 08/21 0030 AC 08/21 IV 0115 Polyethylene Glycol 1 GAL ONCE ONE 08/21 0015 DC PO 08/21 0016 Sodium Chloride 1,000 ML Q6H 08/20 2345 AC 08/21 IV 0451 Sodium Chloride 500 ML BOLUS ONE 08/20 2230 DC 08/20 IV 08/20 2329 2256 Sulfasalazine 500 MG BID 08/21 1000 AC PO Tramadol HCl 50 MG BID PRN 08/21 0015 AC PO Past History Travel History Traveled to [place] past 21 day No Medical History Blood Transfusion Hx: Yes Neurological: NEUROPATHY ESSENTIAL TREMOR EENT: glaucoma ("legally blind"), hearing loss Cardiovascular: hypertension, mitral regurgitation Respiratory: COPD, pneumonia (12/2012), pulmonary hypertension (mild ) Gastrointestinal: hiatal hernia, irritable bowel syndrome, lactose intolerance, umbilical hernia, diverticulosis coli, hx colon adenoma Hepatic: NONE Renal: intermittent CKD Musculoskeletal: degen joint disease, fracture, osteoarthritis, rheumatoid arthritis, osteopenia Psychiatric: anxiety, depression Endocrine: PREDIABETES Blood Disorders: IRON DEFIENCY ANEMIA VS ANEMIA OF CHRONIC DISEASE Cancer(s): NONE COUNTERINTELLIGENCE/HUMINT SPECIALIST/Reproductive: NONE Other Medical Hx: FCBD Surgical History Surgical History: appendectomy, breast biopsy, cholecystectomy, BILAT HIP AND BILAT WRIST Family History Relations & Conditions If Any: MOTHER, , Age 88; Cause: Old age. FATHER (smoker). , Age 60+; Cause: Lung cancer. Psychosocial History Where Do You Live? Assisted Living Who Do You Live With? self Services at Home: None Primary Language: Croatian Smoking Status: Never Smoked ETOH Use: denies use Illicit Drug Use: denies illicit drug use Living Will? yes Power of Safety Coordinator/HCP? yes Name of POA/HCP: pt's nephew, Yared Mercer Other Social History: Single. No children. No cigarettes, drugs, or alcohol. 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 Lives in assisted living. Uses walker. POA is her nephew, Yared Mercer. Functional Ability ADLs Independent: dressing, eating, toileting, bathing. Ambulation: walker IADLs Independent: shopping, housework, finances, food prep, telephone, medication admin. Needs Assist: transportation. 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 ECHO Results (as available) Date of last Echo 12/24/12 EF% 60 Review of Systems Review of Systems: Full 14 point review of systems otherwise noncontributory, and as above. Review of Systems Constitutional: Denies: chills, diaphoresis, fever, malaise, weakness, unexplained weight loss. EENTM: Reports: visual changes (galucoma), hearing changes (AKIACHAK). Denies: blurred vision, double vision, eye pain, eye drainage, eye tearing, icterus, ear discharge, ear pain, ear redness, nasal congestion, epistaxis, nasal pain, throat pain, throat swelling, mouth pain, tooth pain. Cardiovascular: Denies: chest pain, edema, orthopena, palpitations, peripheral edema, syncope. Respiratory: Reports: short of breath (mild baseline (COPD)). Denies: cough, hemoptysis, orthopnea, sputum production, stridor, wheezing. GI: Reports: abdominal pain (LLQ (vs. L hip)), bloody stool. Denies: bloating, constipation, diarrhea, distention, bowel incontinence, melena, nausea, changes in stool, vomiting, steatorrhea. Genitourinary: Denies: discharge, dysuria, frequency, hematuria, hesitation, nocturia, pain, urgency. Musculoskeletal: Reports: back pain, joint pain (DJD/RA/comp fxs/osteopenia). Denies: gout, joint swelling, muscle pain, muscle stiffness, neck pain. Skin: Denies: cysts, change in skin color, change in hair/nails, dryness, erythema, jaundice, lesions, lymphangitis, lumps, moles, rash. Neurological/Psychological: Reports: anxiety, depressed, emotional problems, paresthesia (hx neuropathy), tremors (essential). Denies: ataxia, cognitive dysfunction, confusion, dementia , headache, numbness, pre-existing deficit, petit mal seizures, tingling, tonic- clonic seizures, unable to move lower ext, unable to move upper ext, weakness. Hematologic/Endocrine: Reports: other (anemia of chronic diz > Fe def). Denies: bruising, bleeding, polyuria, polydipsia. Immunologic/Allergic: Denies: splenectomy, HIV/AIDS, lymphadenopathy. All Other Systems: Reviewed and Negative Exam & Diagnostic Data Vital Signs and I&O Vital Signs Date Time Temp Pulse Resp B/P Pulse O2 O2 Flow FiO2 Ox Delivery Rate 08/21 0335 97.0 83 20 156/77 95 08/21 0250 96.4 71 18 141/65 98 Room Air 08/21 0145 97.3 81 18 148/61 96 Room Air 08/21 0131 97.5 93 18 128/60 95 08/21 0100 96.5 86 135/72 08/21 0046 96.3 83 18 132/59 98 Room Air 08/21 0000 83 125/69 08/20 2257 87 18 142/75 95 Room Air 08/20 2135 96.2 92 18 145/64 95 Room Air Intake & Output 08/21 1600 08/21 0400 08/20 1600 08/20 0400 08/19 1600 08/19 0400 Intake Total 50 Output Total Balance 50 Intake, IV 50 Physical Exam: Well-developed, well-nourished, anxious depressed, slightly agitated, fragile elderly female, in no apparent distress. Sclera anicteric. Conjunctiva pale. Oropharynx clear. There is no adenopathy, thyromegaly, or JVD. No peripheral stigmata of inflammatory bowel disease or chronic liver disease on exam. No spiders on the anterior chest wall. No CVA tenderness. Levoscoliosis. No definite spine tenderness. Breast & pelvic exams: API. Lungs: clear to A&P, with slightly prolonged expiratory phase. No wheezing, rales, or rhonchi. Heart exam: regular rate rhythm, S1 and S2, with II/ systolic murmur. Rare ectopic beat. Abdominal exam: normal bowel sounds, soft belly, essentially nontender, without guarding or rebound. Reducible small umbilical hernia, otherwise no mass. No organomegaly. No fluid shift. No pulsatile mass. No epigastric bruit. *I cannot elicit any definite LLQ tenderness on exam & the patient appears somewhat tender over the left iliac crest. Digital rectal exam: per VICTORINO Lang, in ER on admission- BRB with clots (evident in commode), without mass. Extremities: without cyanosis or clubbing. Trace LE edema B/L, L > R. No palpable cords. No rash. +RA > DJD diffusely, without active crepitus. ? tender over left iliac crest. (The patient is not fully compliant with ROM of hips B/L). Distal pulses 1+ bilaterally. DTRs 2+ bilaterally. Alert and oriented x 3. Motor 4/5 B/L. Mild essential tremor. A detailed exam for peripheral neuropathy was deferred, but is present by history. Results Pertinent Lab Results: Laboratory Tests 08/21 08/21 0550 0550 Chemistry Sodium (137 - 145 mmol/L) 140 Potassium (3.5 - 5.1 mmol/L) 4.2 Chloride (98 - 107 mmol/L) 108 H Carbon Dioxide (22 - 30 mmol/L) 24 Anion Gap (5 - 16) 9 BUN (7 - 17 mg/dL) 25 H Creatinine (0.5 - 1.0 mg/dL) 1.0 Estimated GFR (>60 ml/min) 52 L Glucose (65 - 99 mg/dL) 89 Lactic Acid (0.7 - 2.1 mmol/L) 0.9 Calcium (8.4 - 10.2 mg/dL) 8.7 Phosphorus (2.5 - 4.5 mg/dL) 3.9 Magnesium (1.6 - 2.3 mg/dL) 1.6 Total Bilirubin (0.2 - 1.3 mg/dL) 0.4 AST (14 - 36 U/L) 52 H ALT (9 - 52 U/L) 41 Albumin (3.5 - 5.0 g/dL) 3.0 L Hematology CBC w Diff NO MAN DIFF REQ WBC (4.8 - 10.8 /CUMM) 9.8 RBC (4.20 - 5.40 /CUMM) 2.79 L Hgb (12.0 - 16.0 G/DL) 8.1 L Hct (37 - 47 %) 25.2 L MCV (81.0 - 99.0 FL) 90.2 MCH (27.0 - 31.0 PG) 29.2 RDW (11.5 - 14.5 %) 16.1 H Plt Count (130 - 400 /CUMM) 213 MPV (7.4 - 10.4 FL) 7.8 Gran % (42.2 - 75.2 %) 64.3 Lymphocytes % (20.5 - 51.1 %) 21.1 Monocytes % (1.7 - 9.3 %) 9.6 H Eosinophils % (0 - 5 %) 4.5 Basophils % (0.0 - 2.0 %) 0.5 Absolute Granulocytes (1.4 - 6.5 /CUMM) 6.3 Absolute Lymphocytes (1.2 - 3.4 /CUMM) 2.1 Absolute Monocytes (0.10 - 0.60 /CUMM) 0.9 H Absolute Eosinophils (0.0 - 0.7 /CUMM) 0.4 Absolute Basophils (0.0 - 0.2 /CUMM) 0 PUBS MCHC (33.0 - 37.0 G/DL) 32.4 L 08/21 08/21 0230 0037 Chemistry Lactic Acid (0.7 - 2.1 mmol/L) 0.8 Troponin I (< 0.11 ng/ml) 0.02 Hematology CBC w Diff NO MAN DIFF REQ WBC (4.8 - 10.8 /CUMM) 8.6 RBC (4.20 - 5.40 /CUMM) 2.44 L Hgb (12.0 - 16.0 G/DL) 7.3 *L Hct (37 - 47 %) 21.5 L MCV (81.0 - 99.0 FL) 88.1 MCH (27.0 - 31.0 PG) 29.9 RDW (11.5 - 14.5 %) 16.4 H Plt Count (130 - 400 /CUMM) 200 MPV (7.4 - 10.4 FL) 7.3 L Gran % (42.2 - 75.2 %) 65.4 Lymphocytes % (20.5 - 51.1 %) 20.5 Monocytes % (1.7 - 9.3 %) 8.7 Eosinophils % (0 - 5 %) 5.0 Basophils % (0.0 - 2.0 %) 0.4 Absolute Granulocytes (1.4 - 6.5 /CUMM) 5.6 Absolute Lymphocytes (1.2 - 3.4 /CUMM) 1.8 Absolute Monocytes (0.10 - 0.60 /CUMM) 0.7 H Absolute Eosinophils (0.0 - 0.7 /CUMM) 0.4 Absolute Basophils (0.0 - 0.2 /CUMM) 0 PUBS MCHC (33.0 - 37.0 G/DL) 34.0 08/20 2200 Chemistry Sodium (137 - 145 mmol/L) 139 Potassium (3.5 - 5.1 mmol/L) 4.1 Chloride (98 - 107 mmol/L) 104 Carbon Dioxide (22 - 30 mmol/L) 26 Anion Gap (5 - 16) 8 BUN (7 - 17 mg/dL) 27 H Creatinine (0.5 - 1.0 mg/dL) 1.3 H Estimated GFR (>60 ml/min) 39 L BUN/Creatinine Ratio (7 - 25 %) 20.8 Glucose (65 - 99 mg/dL) 97 Lactic Acid (0.7 - 2.1 mmol/L) 0.9 Calcium (8.4 - 10.2 mg/dL) 9.5 Iron (37 - 170 ug/dL) 36 L TIBC (265 - 497 ug/dL) 252 L Ferritin (11.1 - 264 ng/mL) 37.2 Total Bilirubin (0.2 - 1.3 mg/dL) 0.4 AST (14 - 36 U/L) 39 H ALT (9 - 52 U/L) 33 Alkaline Phosphatase (<127 U/L) 142 H Troponin I (< 0.11 ng/ml) 0.02 Total Protein (6.3 - 8.2 g/dL) 5.7 L Albumin (3.5 - 5.0 g/dL) 3.3 L Globulin (1.9 - 4.2 gm/dL) 2.4 Albumin/Globulin Ratio (1.1 - 2.2 %) 1.4 Coagulation PT (9.4 - 12.5 SEC) 12.2 INR (0.90 - 1.19) 1.16 Hematology CBC w Diff NO MAN DIFF REQ WBC (4.8 - 10.8 /CUMM) 11.4 H RBC (4.20 - 5.40 /CUMM) 2.70 L Hgb (12.0 - 16.0 G/DL) 7.8 L Hct (37 - 47 %) 24.0 L MCV (81.0 - 99.0 FL) 88.8 MCH (27.0 - 31.0 PG) 28.8 RDW (11.5 - 14.5 %) 17.2 H Plt Count (130 - 400 /CUMM) 255 MPV (7.4 - 10.4 FL) 7.7 Gran % (42.2 - 75.2 %) 68.0 Lymphocytes % (20.5 - 51.1 %) 17.8 L Monocytes % (1.7 - 9.3 %) 7.9 Eosinophils % (0 - 5 %) 5.3 H Basophils % (0.0 - 2.0 %) 1.0 Absolute Granulocytes (1.4 - 6.5 /CUMM) 7.8 H Absolute Lymphocytes (1.2 - 3.4 /CUMM) 2.0 Absolute Monocytes (0.10 - 0.60 /CUMM) 0.9 H Absolute Eosinophils (0.0 - 0.7 /CUMM) 0.6 Absolute Basophils (0.0 - 0.2 /CUMM) 0.1 PUBS MCHC (33.0 - 37.0 G/DL) 32.4 L Imaging/Other Studies: 08/20/2016: EKG- Sinus arrhythmia @ 77, RBBB, LAHB, flipped T in II & F, PRWP. 08/20/2016: CT ABD & PELVIS ANGIOGRAM (per ER)- 1. Marked diverticulosis of the sigmoid colon with mild submucosal thickening but no significant edema of the pericolonic fat. A mild diverticulitis, however, is not excluded. 2. No pooling of contrast in the lumen to define intraluminal hemorrhage but there is a *prominent vessel in the area of the marked diverticulosis of the proximal sigmoid colon which is suspicious for site of gastrointestinal hemorrhage. 3. 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 Fat-containing umbilical hernia. 4. Atherosclerotic vascular wall calcifications of aorta and iliac arteries, without aneurysm. 5. Bilateral renal cyst. Mild cortical thinning of kidneys bilaterally. Uterine fibroids. 6. Markedly DJD. Levoscoliosis of L-spine. B/L ORIF hips. Assessment/Plan Assessment/Recommendations: 89-year-old female, DNR/DNR (although okay to temporarily intubated for procedure), HTN, non-DM, COPD without home O2 (nonsmoker, probable occupational exposure), RA/DJD (on Sulfasalazine, Plaquenil and possibly Mobic), with extensive past history, followed primarily in the [place] area, with IBS, GERD (on Nexium 40 mg daily for years; remote EGD in [place] with unknown results), history of "spastic esophagus," lactose intolerance, anxiety, depression, insomnia, neuropathy, T12 compression fracture, osteopenia, essential tremor, chronic iron deficiency anemia (vs. anemia of chronic disease- baseline Hgb 10- requiring transfusions in the past), history of pneumonia 2012, mitral regurgitation, mild pulmonary hypertension, glaucoma ("legeally blind"), CCKY, APPY, FCBD, right wrist surgery for chronic osteomelitis, B/L ORIF hips, diverticulosis coli, history of colon adenoma, presenting to the [facility] 08/20/2016 at 9:33 PM, BIBA from home (lives alone, in assisted living- uses walker), complaining of multiple (20) episodes of rectal bleeding starting 9 AM that morning, with questionable associated left lower quadrant pain vs. left hip pain. Upon arrival, BP 145/64, P 92, R 18, T 96.2, O2 sat RA 95%. The patient was given IV morphine and IV NS 500 mL fluid bolus. I did not see any documented orthostatic changes. Initially, the bleeding started after passing a few small pieces of brown stool, but the vast majority of the bleeding was spontaneous in nature. There was no melena, although the patient claims her stools are occasionally dark "from her iron". There was no associated chest pain or increase of her baseline shortness of breath. She denied any palpitations or LOC. Aside from the questionable Mobic, the patient does not take any NSAIDs, aspirin, or anticoagulants. Upon arrival, her underwear was stained with blood. The patient claims her bowel movements are anywhere from once a day to every 3 days, and are chronically irregular. There is no long-standing diarrhea, constipation, obstipation, change in stool caliber, or tenesmus. She denies any previous history of GI bleeding or peptic ulcer disease. Her reflux is relatively stable on Nexium. She denies any hematemesis, odynophagia, dysphagia , early satiety, weight loss, fevers, chills, or jaundice. Her appetite is fair. She denies any symptoms of UTI or URI. She denies any history of bleeding disorders. There was no hemoptysis, hematuria, or vaginal spotting. There is no history of abdominal trauma. She denies any history of AAA. She is a nonsmoker and denies EtOH. 08/20/2016: *Admission H/H 7.8/24, dropping to 7.3/21.5 (see below) & patient was given 1 unit PRBC. She is awaiting an ICU bed. She claims her niece and nephew are aware that she is in the hospital. Has no children. Her POA is her nephew, Yared Mercer ([phone]), but she claims she makes her own medical decisions. *A 1 gallon per day with GoLYTELY was ordered, however the patient was not compliant with this. *She refuses NG tube placement for purge. According to the [facility], 12/18/2006: Colonoscopy to the cecum per Dr. Bonds- extensive pandiverticulosis coli, small internal hemorrhoids, snare polypectomy of 5 mm benign tubular adenoma from the transverse colon. The patient apparently had a subsequent colonoscopy in [place], [place], around 2011, per Dr. Aggarwal & "polyps removed," per patient. 08/20/2016: 10 p.m. Admissiomn labs- WBC 11.4 (no left shift), H/H 7.8/24, MCV 88.8, RDW 17.2, PLT 255, PT 12.2, INR 1.16, glucose 97, BUN/Cr 27/1.3, GFR 39, Na 139, K 4.1, HCO3 26, lactate 0.9, albumin 3.3, globulin 2.4, TBil 0.4, borderline alk phos 142, AST 39, ALT 33, troponin .02, Fe 36, TIBC 252 (c/w chronic disease), ferritin 37.2 08/21/2016: 2:30 a.m.- WBC 8.6, H/H 7.3/21.5, PLT 200 The patient was empirically started on IV Ceftriaxone 1g daily & IV Flagyl 500 mg Q8h, per the medical house staff, for soft findings of questionable sigmoid diverticulitis on CT. 08/20/2016: EKG- Sinus arrhythmia @ 77, RBBB, LAHB, flipped T in II & F, PRWP. 08/20/2016: CT ABD & PELVIS ANGIOGRAM (per ER)- 1. Marked diverticulosis of the sigmoid colon with mild submucosal thickening but no significant edema of the pericolonic fat. A mild diverticulitis, however, is not excluded. 2. No pooling of contrast in the lumen to define intraluminal hemorrhage but there is a *prominent vessel in the area of the marked diverticulosis of the proximal sigmoid colon which is suspicious for site of gastrointestinal hemorrhage. 3. 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 Fat-containing umbilical hernia. 4. Atherosclerotic vascular wall calcifications of aorta and iliac arteries, without aneurysm. 5. Bilateral renal cyst. Mild cortical thinning of kidneys bilaterally. Uterine fibroids. 6. Markedly DJD. Levoscoliosis of L-spine. B/L ORIF hips. *Clinically, the patient appears be having a diverticular bleed. Anther possibility could be angiodysplasia. *Admission CTA was suggestive of possible bleed in the sigmoid region. The history of colon polyps are noted. Neoplasm usually does not bleed to this degree. There is nothing by history to suggest colitis. Clinically, doubt rapid transit upper GI bleed or small bowel etiology. The patient is on PPI for history of GERD. There is no history of AAA. The soft findings of questionable sigmoid diverticulitis are noted on admission CTA, but one usually does not get diverticular bleeding and diverticulitis simultaneously. Clinically, I do not think the patient has diverticulitis. *SUGGEST: ICU admit. GoLYTELY purge as patient allows, then NPO (she refuses NGT placement for GoLytely access). 2 large-bore IVs. Strict I's and O's. Supplemental oxygen as needed. IV PPI for GERD. Check CBC Q6-8h for now. T&C 4u PRBC. Keep Hgb > 7 (no documented ASHD). Consider surgical consultation. For colonoscopy (+/- EGD) later today, if patient complies with prep. Informed consent for colonoscopy/EGD was obtained from the patient, after careful explanation of the risks and benefits. (Although she is DNR/DNI, she is agreeable to prophylactic intubation if needed, for procedure). Consideration for consulting IR for potential angiography with embolization, depending on clinical course. Consider holding Ceftriaxone and Flagyl. No NSAIDs. Consider imaging studies of left hip/left iliac crest, per medical team (? referred pain). The above was discussed with the medical house staff. 1 hour of ICU care was spent on the patient. Problem List: 1. Acute blood loss anemia 2. Lower GI bleed 3. Diverticulosis of colon 4. GERD (gastroesophageal reflux disease) Copies To: NORMA MARINELLI,SRI; CAYDEN MARINELLI,WALDEMAR; TEMO MARINELLI,RADHA Consult Acknowledgment - Thank you for your consult request.
--- NOTE | 2016-08-21 04:51 | NUR ---
PT STILL C/O PAIN. PT MEDICATED WITH HYDROMORPHONE PER ORDER.
--- NOTE | 2016-08-21 05:08 | Admission Certification ---
Admission Certification Certification Statement - As attending physician, I certify that at the time of - admission, based on clinical presentation, severity of - symptoms, need for further diagnostic testing and - therapeutic interventions, and risk of adverse outcomes - without in-hospital treatment, in my clinical assessment, - this patient requires an acute hospital stay for a minimum - of two nights or longer. I have also considered psychsocial - factors such as support system, advanced age, financial - issues, cognitive issues, and failed out-patient treatments, - past re-admission history, safety of patient, and lack of - compliance as applicable. Specific rationale supporting this admission is: GI bleed
--- NOTE | 2016-08-21 05:50 | NUR ---
SECOND UNIT BLOOD HUNG
[2016-08-21 06:04] LABS: ABSOLUTE BASOPHIL COUNT 0 /CUMM (0.0-0.2); ABSOLUTE EOSINOPHIL COUNT 0.4 /CUMM (0.0-0.7); ABSOLUTE GRANULOCYTE CT 6.3 /CUMM (1.4-6.5); ABSOLUTE LYMPH COUNT 2.1 /CUMM (1.2-3.4); ABSOLUTE MONOCYTE COUNT 0.9 /CUMM (0.10-0.60); BASOPHIL % 0.5 % (0.0-2.0); EOSINOPHIL % 4.5 % (0-5); GRANULOCYTE % 64.3 % (42.2-75.2); HEMATOCRIT 25.2 % (37-47); MEAN CORPUSCULAR HGB 29.2 PG (27.0-31.0); MEAN CORPUSCULAR HGB CONC 32.4 G/DL (33.0-37.0); MEAN CORPUSCULAR VOLUME 90.2 FL (81.0-99.0); MEAN PLATELET VOLUME 7.8 FL (7.4-10.4); PLATELET COUNT 213 /CUMM (130-400); RBC DISTRIBUTION WIDTH 16.1 % (11.5-14.5); RED BLOOD CELL CT 2.79 /CUMM (4.20-5.40); WHITE BLOOD CELL COUNT 9.8 /CUMM (4.8-10.8)
--- NOTE | 2016-08-21 06:05 | NUR ---
PT TO COMMODE WITH HELP. PT HAD BLOODY BM. PT DENIES CP, SOB AND DIZZINESS. WILL CONYINUE TO MONITOR.
--- NOTE | 2016-08-21 07:01 | Cons- CRCU ---
GABRIEL GILLESPIE MD 08/21/16 0701: General Information and HPI Consulting Request Date of Consult: 08/21/16 Requested By: Dr. Rizzo Reason for Consult: Bright red blood per rectum Source of Information: patient, History and physical History of Present Illness: Patient had acute bright red blood per rectum, up 20 blood BM prior to coming to ED. She also reported lower abdominal pain for which CT abdomen and pelvis was done and showed diverticulosis with prominent vessel noted in the area of marked diverticulosis. In addition to that, there might also be sigmoid diverticulitis for which ceftriaxone and flagyl was started. Dr. Mas does not think the sigmoid diverticulitis is acute (most likely chronic) given that diverticulitis do not tend to bleed. Due to low hb (7.3 from baseline 10), she has received 2 units of PRBC so far, with hb now 8.1. According to ED nurse, pt continues to have BM every 30 mins, and when we saw her this morning, she has only drank 1/3 of golytely, which is not sufficient for a satisfactory colonoscopy. She also refused NG tube for the golytely. Dr. Mas recommended IR to be contacted if she needs intervention urgently for possible embolization. He also recommended getting surgery on board. As she is not tachycardic, with BP on the higher side, and BM reportedly dark brown in ED, no urgent intervention needs to be pursued at this point. She needed to have a bowel movement urgently when we saw her this morning, so only limited history and physical exam could be obtained. Allergies/Medications Allergies: Coded Allergies: propoxyphene (08/11/15) Home Med List: Albuterol Sulfate (Proair Hfa) 8.5 GM HFA.AER.AD 2 PUF INH Q4-6 PRN PRN COPD (Reported) Carvedilol (Coreg) 6.25 MG TABLET 1 TAB PO BID HEART (Reported) Cholecalciferol (Vitamin D3) (Vitamin D) 1,000 UNIT CAPSULE 5 TAB PO DAILY SUPPLEMENT (Reported) Cyanocobalamin (Vitamin B-12) (Vitamin B-12) 100 MCG TABLET 1 TAB PO DAILY SUPPLEMENT (Reported) Diclofenac Sodium (Voltaren) 1 % GEL..GRAM. 1 GM TOP 4 TIMES/DAY PAIN ( Reported) apply to affected area(s) Diphenoxylate HCl/Atropine (Lomotil 2.5-0.025 MG Tablet) 2.5 MG-0.025 MG TABLET 1 TAB PO DAILY PRN DIARRHA (Reported) Docusate Sodium (Colace) 100 MG CAPSULE 1 CAP PO BID CONSTIPATION (Reported) Enalapril Maleate 10 MG TABLET 1 TAB PO DAILY HTN (Reported) Esomeprazole (Nexium) 40 MG CAPSULE.DR 1 CAP PO DAILY GERD (Reported) Ferrous Sulfate 325 MG TABLET 1 TAB PO DAILY SUPPLEMENT (Reported) Fluticasone/Salmeterol (Advair 250-50 Diskus) 1 EACH BLST.W.DEV 1 PUF INH BID COPD (Reported) Folic Acid 1 MG TABLET 1 TAB PO DAILY SUPPLEMENT (Reported) Furosemide (Lasix) 20 MG TABLET 1 TAB PO DAILY WATER PILL (Reported) Gabapentin (Neurontin) 600 MG TABLET 1 CAP PO BID NEUROPATHY (Reported) Hydrochlorothiazide 25 MG TABLET 1 TAB PO DAILY HTN (Reported) Hydroxychloroquine Sulfate 200 MG TABLET 1 TAB PO BID RHEUMATOID ARTHRITIS ( Reported) Mometasone Furoate (Nasonex) 17 GM SPRAY.PUMP 1-2 SPRAY NASB DAILY ALLERGY ( Reported) Olopatadine HCl (Pataday) 2.5 ML DROPS 1 GTT OPH DAILY PRN ALLERGY (Reported) Polyethylene Glycol 3350 (Miralax) 17 GRAM POWD.PACK 1 PAC PO DAILY CONSTIPATION (Reported) dissolve in water Sertraline HCl 50 MG TABLET 1 TAB PO DAILY DEPRESSION (Reported) Sulfasalazine (Sulfazine EC) 500 MG TABLET.DR 1 TAB PO BID GI (Reported) Tramadol HCl 50 MG TABLET 1 TAB PO BID PRN PAIN (Reported) Travoprost (Travatan Z) 5 ML DROPS 1 GTT OPH QPM GLAUCOMA (Reported) Trazodone HCl 100 MG TABLET 0.5 TAB PO QPM INSOMNIA (Reported) Past History Travel History Traveled to [place] past 21 day No Medical History Blood Transfusion Hx: Yes Neurological: NEUROPATHY ESSENTIAL TREMOR EENT: glaucoma ("legally blind"), hearing loss Cardiovascular: hypertension, mitral regurgitation Respiratory: COPD, pneumonia (12/2012), pulmonary hypertension (mild ) Gastrointestinal: hiatal hernia, irritable bowel syndrome, lactose intolerance, umbilical hernia, diverticulosis coli hx colon adenoma Hepatic: NONE Renal: intermittent CKD Musculoskeletal: degen joint disease, fracture, osteoarthritis, rheumatoid arthritis, osteopenia Psychiatric: anxiety, depression Endocrine: PREDIABETES Blood Disorders: IRON DEFIENCY ANEMIA VS ANEMIA OF CHRONIC DISEASE Cancer(s): NONE 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 FATHER (smoker). , Age 60+; Cause: Lung cancer. Psychosocial History Where Do You Live? Assisted Living Who Do You Live With? self Services at Home: None Primary Language: Faroese Smoking Status: Never Smoked ETOH Use: denies use Illicit Drug Use: denies illicit drug use Living Will? yes Power of Photocomposition Keyboard Operator/HCP? yes Name of POA/HCP: pt's nephew, Yared Mercer Other Social History: Single. No children. No cigarettes, drugs, or alcohol. 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 Lives in assisted living. Uses walker. POA is her nephew, Yared Mercer. Functional Ability ADLs Independent: dressing, eating, toileting, bathing. Ambulation: walker IADLs Independent: shopping, housework, finances, food prep, telephone, medication admin. Needs Assist: transportation. 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 ECHO Results (as available) Date of last Echo 12/24/12 EF% 60 Exam & Diagnostic Data Last 24 Hrs of Vital Signs/I&O Vital Signs Date Time Temp Pulse Resp B/P Pulse O2 O2 Flow FiO2 Ox Delivery Rate 08/21 0757 96.3 74 20 174/76 99 Room Air 08/21 0701 96.5 79 20 164/69 96 08/21 0605 97.0 77 20 144/75 96 08/21 0550 97.2 89 20 128/58 96 08/21 0445 96.9 78 18 155/72 96 08/21 0335 97.0 83 20 156/77 95 08/21 0250 96.4 71 18 141/65 98 Room Air 08/21 0145 97.3 81 18 148/61 96 Room Air 08/21 0131 97.5 93 18 128/60 95 08/21 0100 96.5 86 135/72 08/21 0046 96.3 83 18 132/59 98 Room Air 08/21 0000 83 125/69 08/20 2257 87 18 142/75 95 Room Air 08/20 2135 96.2 92 18 145/64 95 Room Air Intake & Output 08/21 1600 08/21 0800 08/21 0000 Intake Total 50 Output Total Balance 50 Intake, IV 50 Physical Exam General Appearance: alert, anxious, mild distress Head: atraumatic Last 48 Hrs of Labs/Herb: Laboratory Tests 08/21/16 0550: Lactic Acid 0.9 08/21/16 0550: Anion Gap 9, Estimated GFR 52 L, Glucose 89, Calcium 8.7, Phosphorus 3.9, Magnesium 1.6, Total Bilirubin 0.4, AST 52 H, ALT 41, Albumin 3.0 L, CBC w Diff NO MAN DIFF REQ, RBC 2.79 L, MCV 90.2, MCH 29.2, RDW 16.1 H, MPV 7.8, Gran % 64.3, Lymphocytes % 21.1, Monocytes % 9.6 H, Eosinophils % 4.5, Basophils % 0.5, Absolute Granulocytes 6.3, Absolute Lymphocytes 2.1, Absolute Monocytes 0.9 H, Absolute Eosinophils 0.4, Absolute Basophils 0, PUBS MCHC 32.4 L 08/21/16 0230: Troponin I 0.02, CBC w Diff NO MAN DIFF REQ, RBC 2.44 L, MCV 88.1, MCH 29.9, RDW 16.4 H, MPV 7.3 L, Gran % 65.4, Lymphocytes % 20.5, Monocytes % 8.7, Eosinophils % 5.0, Basophils % 0.4, Absolute Granulocytes 5.6, Absolute Lymphocytes 1.8, Absolute Monocytes 0.7 H, Absolute Eosinophils 0.4, Absolute Basophils 0, PUBS MCHC 34.0 08/21/16 0037: Lactic Acid 0.8 08/20/16 2200: Anion Gap 8, Estimated GFR 39 L, BUN/Creatinine Ratio 20.8, Glucose 97, Lactic Acid 0.9, Calcium 9.5, Iron 36 L, TIBC 252 L, Ferritin 37.2, Total Bilirubin 0.4, AST 39 H, ALT 33, Alkaline Phosphatase 142 H, Troponin I 0.02, Total Protein 5.7 L, Albumin 3.3 L, Globulin 2.4, Albumin/Globulin Ratio 1.4, PT 12.2, INR 1.16, CBC w Diff NO MAN DIFF REQ, RBC 2.70 L, MCV 88.8, MCH 28.8, RDW 17.2 H, MPV 7.7, Gran % 68.0, Lymphocytes % 17.8 L, Monocytes % 7.9, Eosinophils % 5.3 H, Basophils % 1.0, Absolute Granulocytes 7.8 H, Absolute Lymphocytes 2.0, Absolute Monocytes 0.9 H, Absolute Eosinophils 0.6, Absolute Basophils 0.1, PUBS MCHC 32.4 L Diagnostic Data EKG Results EKG showed sinus rhythm, 83, RBBB, LAFB, QTC 447, inverted T's in V1 V3, lead 3, lead [address] abdomen and pelvis FINDINGS: LUNG BASES: The visualized lung bases are unremarkable. LIVER, GALLBLADDER, AND BILIARY TREE: The liver is normal in size, shape, and attenuation. No focal hepatic lesion or biliary ductal dilatation is present. Gallbladder surgically absent. No bile duct dilatation. PANCREAS: No acute change of the pancreas. No mass. No pancreatic duct dilatation. SPLEEN: Spleen normal in size and contour. No focal lesion. ADRENAL GLANDS: Mildly enlarged left adrenal gland unchanged since prior study. KIDNEYS AND URETERS: Bilateral renal cysts. Stable since prior exam. This includes low attenuating and hyperattenuating cysts. Mild cortical thinning of both kidneys. There is no renal or ureteral calculus. BLADDER: Unremarkable. GASTROINTESTINAL TRACT: Marked diverticulosis of the left colon and sigmoid with numerous scattered diverticula in the right colon. There is mucosal thickening at the mid sigmoid without edema of the pericolonic fat. A mild diverticulitis though could be present. No perforation or abscess. No bowel obstruction. On the postcontrast images there is no definite extravasation of the contrast into the lumen but there is a prominent enhancing vessel along the mesenteric side of the colon at the proximal sigmoid in the area of mucosal thickening, coronal image 72 (604), sagittal image 52 (605). This is suspicious for site of gastrointestinal hemorrhage. MESENTERY: No edema or inflammation of the mesentery. No free air or free fluid. ABDOMINAL WALL: Fat-containing umbilical hernia. Herniated fat pocket measures 6 x 3 x 5 cm. LYMPH NODES: Normal. VASCULAR: Atherosclerotic vascular wall calcifications of aorta and iliac arteries without aneurysm. PELVIC VISCERA: Multiple calcified fibroids of uterus. No adnexal abnormality. OSSEOUS STRUCTURES: Marked multilevel degenerative spondylosis of spine with disc height narrowing and endplate spurs and facet joint arthrosis. Levoscoliosis of lumbar spine. Bilateral compression screws in the right and left proximal femur. This does cause streak artifact through the lower pelvis. IMPRESSION: 1. Marked diverticulosis of the sigmoid colon with mild submucosal thickening but no significant edema of the pericolonic fat. A mild diverticulitis however is not excluded. 2. No pooling of contrast in the lumen to define intraluminal hemorrhage but there is a prominent vessel in the area of the marked diverticulosis of the proximal sigmoid colon which is suspicious for site of gastrointestinal hemorrhage. This critical result was discussed with PA. Morin on 08/21/2016, 11:15 PM and it was ascertained that the content and urgency of the report was understood at the time of direct communication. DICTATED BY: MAHAMED FIELD MD DATE/TIME DICTATED:08/20/162250 Assessment/Plan Impression/Plan: Ms. 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 This lower abdominal pain began suddenly 1 day prior to admission and she had about 20 bloody BM prior to coming to ED, associated with lethargy and mild shortness of breath. In the ED: Vital signs showed T 96.2, HR 92, RR 18, BP 145/64 and O2 saturation of 95% on room air. CBC was significant for hb 7.3 (baseline 10-11), mild leukocytosis to 11.4 without bandemia (improved to 9.8) and BEP was significant for BUN/cre 27/1.3 (improved to 25/1). AST 39, alk phos 142, and INR 1.16. Patient is admitted to the intesive care unit and the following is the management: # BRBPR with acute blood loss anemia , most likely due to bleeding diverticulosis # Rule out ACS # Hx of HTN (antihypertensives on hold) # Severe depression/anxiety # Sigmoid diverrticulitis? # Rheumatoid arthritis Gastrointestinal # BRBPR with acute blood loss anemia, most likely due to bleeding diverticulosis # Sigmoid diverrticulitis? unlikely because the diverticulitis usually does not bleed, suspect the CT findings could be chronic (abdominal pain is referred pain from arthritic hip?) - CTA abdomen/pelvis showed marked diverticulosis of the sigmoid colon with mild submucosal thickening but no significant edema of the pericolonic fat. A mild diverticulitis however is not excluded. No pooling of contrast in the lumen to define intraluminal hemorrhage but there is a prominent vessel in the area of the marked diverticulosis of the proximal sigmoid colon which is suspicious for site of gastrointestinal hemorrhage. - Patient typed & screened and blood transfusion consent obtained in the ED * Continuous telemetry monitoring in the ICU * 2 large bore IVs * Orthostats vitals * Hb 7.3, sp 2 units PRBC, improved to 8.1 (goal hb > 7) * Pt has only drank 1/3 of 1 gallon golytely. Refused NG tube. Dr. Mas not comfortably doing colonoscopy if she does not finish drinking it. * BP currently on the higher side, and no tachycardia. * Plan for endoscopy/colonoscopy if pt completes golytely * Consider IR for embolization as pt currently not candidate for colonoscopy * Consider surgical input * Having BM every 30 mins, nurse said it was dark brown in color. * Follow up repeat CBC Q4 hours if continues to have BRBPR * IVF with normal saline at 100 cc/h * IV flagyl and ceftriaxone started as CTA showed inflammatory changes of the bowel and white count slightly elevated on admission. Consider discontinuing this. * Morphine for severe pain * IV protonix 40 mg daily * No NSAIDs Cardiovascular # Rule out ACS - Patient denies chest pain or ischemic symptoms, however in setting of acute blood loss anemia and many medical comorbidities, ACS needs to be ruled out * Troponin/EKG x 3 * Continuous telemetry monitoring # History of HTN * Hold all hypertensives for now in setting of active bleeding * Monitor vital signs closely and once patient no longer bleeding, and can eat, consider reinstituting antihypertensives slowly (Carvedilol 6.25 bid, Enalapril 10 mg daily ,Lasix 20 mg daily , HCTZ 25 mg daily) * Give IV hydralazine pushes if needed while we are holding antihypertensives Respiratory # COPD not on home O2 - Patient currently stable on room air * Monitor oxygen saturation and provide supplemental O2/TRC nebs as needed * Continue symbicort Hematology # History of iron deficiency anemia * Continue ferrous sulfate daily Psychiatry # Severe depression/anxiety * Consider psych consult * Continue home meds Sertraline 50 mg daily, Trazodone 50 mg QPM * Although her home med is Gabapentin 600 mg BID, due to her cr clearance, pharmacy recc 200-700 mg daily, so we will give 600 mg daily # Rheumatoid arthritis * Continue home sulfasalazine and hydroxychloroquine * Consider imaging studies of left hip/iliac Infectious disease # Sigmoid diverticulitis? - WBC normal * Follow blood cultures x 2, monitor for fevers * On ceftriaxone and flagyl, consider discontinuing # Continue home meds Latanoprost eye drop Naphthzolin eye drop # Consider restarting home meds currently on hold Carvedilol 6.25 bid Enalapril 10 mg daily Lasix 20 mg daily HCTZ 25 mg daily Esomeprazole 40 mg daily Tramadol Albuterol Advair (fluticasone/salmeterol) Nasonex Olapatadin eye drop Vit D3 Vit B 12 Voltaren Mild to severe pain pathway Diet: NPO pending GI intervention DVTP: ALPS, no pharm due to BRBPR DNR/DNI Consult Acknowledgment - Thank you for your consult request. KATHRYN MARINELLI,Nicholas GRAY 08/21/16 1030: Assessment/Plan Other Findings/Comments: I have personally seen and examined the patient and agree with the residents assessment and plan as detailed above. The patient is an 89 year old female with PMH of COPD not on home oxygen, HTN, spastic esophagus, gastroesophageal reflux, hiatal hernia, lactose intolerance, iron deficiency anemia, glaucoma, insomnia, depression and rheumatoid arthritis. She presented to the emergency department for evaluation of rectal bleeding. One day prior to admission, the patient developed lower abdominal pain associated with malaise. This was followed by many bowel movements which appeared bloody. In the emergency department, the patient had a rectal exam and bright red blood was seen. The patient presented hemodynamically stable. Her hemoglobin was decreased compared to her baseline and was 7.8. CT the abdomen and pelvis showed markedly diverticula versus of the sigmoid colon without edema. There was no pooling of contrast in the lumen to define intraluminal hemorrhage however there was a prominent vessel in the area of markedly diverticula versus of the proximal sigmoid colon suspicious for the site of GI bleed. The patient was admitted to the critical care unit, signs continue to be monitored, she underwent transfusion with 2 units of packed red blood cells, she is undergoing a CBC every 4 hours for now. GI has been consulted and she is nothing by mouth with the exception of GoLYTELY in anticipation for colonoscopy. Will continue IV hydration, trend troponins and EKGs, and provide the patient with Protonix as well as pain control. She will receive IV ceftriaxone and Flagyl for diverticulitis. We will continue to follow GI's recommendations, appreciate input. Consult Acknowledgment - Thank you for your consult request. Consult Acknowledgment - Thank you for your consult request.
--- NOTE | 2016-08-21 07:15 | NUR ---
ASSUMED CARE, OOB TO COMMODE, PASSED SMALL AMOUNT DARK BROWN LIQUID STOOL. SIPPING GOLYTELY.
--- NOTE | 2016-08-21 07:56 | NUR ---
SECOND UNIT PRBC'S COMPLETED.
--- NOTE | 2016-08-21 07:59 | NUR ---
MEDICATED FOR ABDOMINAL PAIN WITH MORPHINE 2 MG IV.
--- NOTE | 2016-08-21 08:25 | NUR ---
OOB TO COMMODE, PALE, ABDOMINAL PAIN DECREASED.
--- NOTE | 2016-08-21 08:36 | RADIOLOGY REPORT ---
EXAMINATION: XR PORTABLE ABDOMEN CLINICAL INFORMATION: 89-year-old female with lower GI bleed. Differential diverticulitis versus ischemic bowel disease. Abdominal pain. COMPARISON: CT of the abdomen and pelvis on 08/20/2016. TECHNIQUE: AP supine view of the abdomen. FINDINGS: There is no evidence of intestinal obstruction. Numerous air-filled diverticula are seen in the sigmoid colon. Residual contrast from the previous IV injection is present in the urinary bladder and also in the renal pelves of the kidneys. The abdominal aorta is tortuous and calcified. Bilateral compression nails are seen in both hips. A large exostosis arises from the lesser trochanter of the right femur. There is significant degenerative disc disease of the lumbar spine. The patient's gallbladder has been surgically removed. IMPRESSION: No evidence of intestinal obstruction.
--- NOTE | 2016-08-21 09:43 | NUR ---
PT ASSIGNED ROOM 110
--- NOTE | 2016-08-21 09:57 | NUR ---
AM MEDS GIVEN, REFUSING TO DRINK GOLYTELY, DOES NOT WANT COLONSCOPY.
--- NOTE | 2016-08-21 10:35 | NUR ---
REPORT TO ICU (KATERIN SHELLEY).
[2016-08-21 10:52] LABS: ABSOLUTE BASOPHIL COUNT 0 /CUMM (0.0-0.2); ABSOLUTE EOSINOPHIL COUNT 0.5 /CUMM (0.0-0.7); ABSOLUTE GRANULOCYTE CT 7.7 /CUMM (1.4-6.5); ABSOLUTE LYMPH COUNT 2.1 /CUMM (1.2-3.4); BASOPHIL % 0.2 % (0.0-2.0); EOSINOPHIL % 4.3 % (0-5); GRANULOCYTE % 68.4 % (42.2-75.2); HEMATOCRIT 28.2 % (37-47); MEAN CORPUSCULAR HGB 29.7 PG (27.0-31.0); MEAN CORPUSCULAR HGB CONC 33.6 G/DL (33.0-37.0); MEAN CORPUSCULAR VOLUME 88.3 FL (81.0-99.0); MEAN PLATELET VOLUME 7.4 FL (7.4-10.4); PLATELET COUNT 202 /CUMM (130-400); RBC DISTRIBUTION WIDTH 15.8 % (11.5-14.5); WHITE BLOOD CELL COUNT 11.3 /CUMM (4.8-10.8)
--- NOTE | 2016-08-21 11:37 | NUR ---
REC'D THE PT FROM THE ER AT 1100. TRANSFERRED FROM THE STRETCHER TO THE BED WITH AN ASSIST OF 4. PT IS A&OX3 BUT IS SLEETMUTE AND LEGALLY BLIND. DENIES ANY ABD PAIN AT THIS TIME, HOWEVER, THE MARIEL/LLQ ABD ARE TENDER TO PALPATION. PT IS IN A NSR PER THE MEDICAL ONCOLOGY PHYSICIAN, NO ECTOPY NOTED. STEVEN BS ARE CLEAR WITH AN O2 SAT OF 98% ON ROOM AIR. ABD IS SOFT AND HAS NORMOACTIVE BOWEL SOUNDS. RECEIVING NS AT 100ML/HR VIA A #20 TO THE RF. ENCOURAGING THE PT TO DRINK THE GOLYTELY.
--- NOTE | 2016-08-21 13:17 | NUR ---
PT C/O ANXIETY STATING "IS THERE SOMETHING YOU CAN GIVE ME FOR MY ANXIETY?" IN ADDITION, THE PT C/O 02/16 SHARP PAIN TO THE L SIDE OF THE ABD. MEDICATED WITH ATIVAN 0.5MG IV WELL MORPHINE 2MG IV AT 1300. ALSO, THE PT'S SBP HAS BEEN 180'S VIA THE AUTOCUFF X2H. HYDRALAZINE 5MG IV ADMINISTERED AT 1305. PT HAVING DIFFICULTY TAKING GOLYTLEY, DR BRANNON AWARE AND PT DOES NOTHAVE TO TAKE ANYMORE. WILL ATTEMPT COLONOSCOPY WITH THE AMOUNT OF GOLYTELY INGESTED THUS FAR.
--- NOTE | 2016-08-21 13:29 | Event Note ---
Event Note Event Note: Plan for colonoscopy at 3pm today. I spoke to Dr. Petit from IR regarding possible need for embolization if colonoscopy fails to reveal the bleeding site. The yield of positive angio results when pt is not actively bleeding is around 7%. He is now aware of the patient and would like an update once colonoscopy is done. Colonoscopy completed, Dr. Mas thinks her bleeding likely due to diverticular bleed, also incidentally found polyp in the stomach, although biopsy not taken due to concerns of inducing bleed. I updated Dr. Petit regarding the colonoscopy findings. He suggests getting CTA if pt is having a large amount of bright red blood per rectum. Based on the results, contact IR to do angio and embolization.
[2016-08-21 14:49] LABS: ABSOLUTE BASOPHIL COUNT 0 /CUMM (0.0-0.2); ABSOLUTE EOSINOPHIL COUNT 0.4 /CUMM (0.0-0.7); ABSOLUTE LYMPH COUNT 1.1 /CUMM (1.2-3.4); ABSOLUTE MONOCYTE COUNT 0.8 /CUMM (0.10-0.60); BASOPHIL % 0.2 % (0.0-2.0); EOSINOPHIL % 5.3 % (0-5); GRANULOCYTE % 72.3 % (42.2-75.2); HEMATOCRIT 26.7 % (37-47); MEAN CORPUSCULAR HGB CONC 32.6 G/DL (33.0-37.0); MEAN CORPUSCULAR VOLUME 89.1 FL (81.0-99.0); MEAN PLATELET VOLUME 7.5 FL (7.4-10.4); PLATELET COUNT 175 /CUMM (130-400); WHITE BLOOD CELL COUNT 8.3 /CUMM (4.8-10.8)
[2016-08-21 16:00] VITALS: BP 144/74
--- NOTE | 2016-08-21 16:27 | Proc Note Gastroenterology ---
Gastroenterology Procedure Date of Last Colonoscopy: ? 2011 in [place], [place] by Dr. Aggarwal. Procedure Date: 08/21/16 GI Procedure(s): Combined follow-up colonoscopy to the terminal ileum, plus EGD to the third portion of the duodenum. 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 Meds Received: O2- 10L NRB mask & MAC, as per Dr. Trent, of [facility]. Patient's Tolerance: good Complications: None Extent Reached: TI/D3 Procedure: Combined follow-up colonoscopy to the terminal ileum, plus EGD to the third portion of the duodenum, were performed with the Olympus high-definition videoscopes from above and below, after obtaining informed consent from the patient for each procedure prior to IV sedation, with the cardiac catheterization technologist and pulse oximeter, after only 1/3 of a gallon of GoLYTELY (per patient), by the bedside in the [facility], room #110, with the assistance of Dr. Trent, of [facility]. Documenting photographs were obtained from above and below, and placed inside the patient's chart. Initially, follow up colonoscopy to the terminal ileum, was performed with the Olympus high-definition pediaric videocolonoscope, after obtaining informed consent from the patient, with the cardiac catheterization technologist and pulse oximeter, after only 1/3 of a gallon of GoLytely (per patient), with the assistance of Dr. Trent, of [facility]. Despite this, the prep was actually fair. Having stated that, a small polyp < 5 mm been obscured by the prep, but certainly no large lesions were seen. The patient was in the left lateral decubitus position throughout the procedure. Direct views of the rectum failed to reveal any external hemorrhoids, fissures, or perianal disease. Digital rectal exam was unremarkable, without any masses. Sphincter tone was normal. Retroflexion in the rectum failed to reveal any gross proctitis, rectal ulcers or rectal lesions. Stool was washed and suctioned clear from the rectum. There were mild internal hemorrhoids on retroflexion, without any active bleeding. The colonic mucosa was carefully inspected, both upon insertion and upon withdrawal of the colonoscope. Withdrawal time was certainly adequate. There were extensive pandiverticulosis coli, sigmoid greater than right, from the sigmoid colon up to and including the cecum. The cecum, base of the appendix, and ileocecal valve were all identified. The last 10 cm of the terminal ileum were entered and appeared normal. Confirmatory photographs were obtained. The colonic mucosa appeared intact and within normal limits to the terminal ileum, without any recurrent polyps, lesions, gross colitis, ileitis, or angiodysplasias. Again, a small polyp could have been obscured by the fair prep. No active lower GI bleeding was seen, although there was scant reddish tinged liquid in the sigmoid, which resolved with water wash. The patient tolerated the procedure well. As no active lower GI bleeding was seen to the terminal ileum (*although clinical suspicion for diverticular bleed exists), after completing the follow- up colonoscopy to the terminal ileum, upper endoscopy to the third portion of the duodenum was performed with the Olympus high definition videoendoscope, after previously obtaining informed consent from the patient, with the cardiac catheterization technologist and pulse oximeter, with the assistance of Dr. Trent, of [facility]. The patient's false partials were removed preoperatively. A mouthpiece was placed in the usual fashion to protect the patient's residule teeth. The patient was placed in the left lateral decubitus position and sedated by [facility]. At this point, the endoscope was advanced through the fenestrated hole in the NRB mask, into the mouth, then into the esophagus, using direct visualization technique. The vocal cords appeared normal. The esophageal mucosa appeared normal. There were no esophageal rings, webs, lesions, strictures, or ulcers. There was no monilia or vesicles. There was no esophageal ribbing. The Z line was well demarcated at 36 cm. There was a small hiatal hernia pouch, without any Phoenix erosions. No significant esophageal inflammation was seen. There were no ectopic islands, nor gross Rich's esophagus. There were no esophageal or gastric varices, nor any Evelyn Aggarwal tear. The perry of the stomach distended normally with air insufflation. Direct and retroflexed views of the stomach were performed. There was nothing endoscopically to suggest gastroparesis or portal gastropathy. Scattered throughout the proximal stomach were multiple sessile gastric polyps, maximum diameter 1 cm, in the gastric cardia, fundus, lesser curvature, and posterior wall of the gastric body, which were left intact without biopsies, so as not to confuse the issue. The mucosa of the proximal stomach was not atrophic -appearing. Aside from the scattered gastric polyps, the intervening mucosa of the gastric cardia, fundus, lesser curvature, incisura, & body appeared normal. The mucosa of the gastric antrum appeared normal, without any gastric ulcers or gastric lesions. The pylorus was patent, without any gastric outlet obstruction or channel ulcer. The duodenal bulb, duodenal sweep and third portion of the duodenum appeared normal, including the ampulla, without any duodenal ulcers, distal ulcerations, or angiodysplasias. An incidental duodenal diverticulum was seen in the second portion of the duodenum. Bile was seen in the duodenum. The folds of the second and third portions of the duodenum were normal in caliber, without any flattening, nodularity, scalloping, or mosaic pattern. No active upper GI bleeding was seen, either. The patient tolerated both procedures well. Impression: 1. Extensive pandiverticulosis coli, left-sided greater than right, from the sigmoid to the cecum. 2. Normal colonic mucosa to the terminal ileum (fair prep, which could have obscured a tiny polyp). 3. Mild internal hemorrhoids, without any active bleeding. 4. Reddish tinged liquid, washed and suctioned from the sigmoid; without any active bleed. 5. Small hernia, with Z line at 36 cm 6. Incidental non-bleeding sessile gastric polyps, proximal stomach, maximal diameter 1 cm, left intact. 7. Incidental duodenal diverticulum, second portion of the duodenum. [*No active lower or upper GI bleeding seen at present. Clinically, the patient probably had a self-limited diverticular bleed. Small bowel etiology less likely clinically]. Recommendations: Maintain in ICU overnight. Clears po as tolerated. Check CBC Q12h. Keep Hgb > 7 (no documented ASHD). 2 large-bore IVs. Strict I's and O's. Supplemental oxygen as needed. Continue PPI for GERD. T&C 4u PRBC. Keep Hgb > 7 (no documented ASHD). Consider surgical consultation. Consideration for consulting IR for potential angiography with embolization, if patient actively rebleeds. Consider holding Ceftriaxone and Flagyl. No NSAIDs. Consider imaging studies of left hip/left iliac crest, per medical team (? referred pain). Based on patient 's advanced age, I do not feel there is any role for further surveillance colonoscopies, regarding the history of colon adenomas.*Consideration for outpatient PillCam. The above was discussed with the medical house staff, the patient, & the patient's niece, Tequila Mercer. Further recommendations to follow, depending on clinical course. Follow-up Colonscopy Screening no need for surveillance with advanced age CC: KATHRYN MARINELLI,Nicholas GRAY; NORMA MARINELLI,SRI; CAYDEN MARINELLI,WALDEMAR; TEMO MARINELLI,RADHA
--- NOTE | 2016-08-21 16:46 | NUR ---
PT HAD A BEDSIDE UPPER AND LOWER ENDOSCOPY PERFORMED BY DR BRANNON. FINSIHED BY 1600. VSS HAVE RETURNED TO BASELINE AND THE PT IS AWAKE AND ALERT. CONFUSED TO WHAT BROUGHT HER TO THE HOSPITAL BUT ONCE THE EVENT WAS EXPLAINED THE PT COULD REMEMBER. TO START ON A CLEAR LIQUID DIET FOR DINNER.
[2016-08-21 22:15] LABS: ABSOLUTE BASOPHIL COUNT 0.1 /CUMM (0.0-0.2); ABSOLUTE EOSINOPHIL COUNT 0.4 /CUMM (0.0-0.7); ABSOLUTE GRANULOCYTE CT 7.6 /CUMM (1.4-6.5); ABSOLUTE MONOCYTE COUNT 0.9 /CUMM (0.10-0.60); BASOPHIL % 1.1 % (0.0-2.0); EOSINOPHIL % 4.3 % (0-5); GRANULOCYTE % 76.4 % (42.2-75.2); MEAN CORPUSCULAR HGB 29.4 PG (27.0-31.0); MEAN CORPUSCULAR HGB CONC 33.3 G/DL (33.0-37.0); MEAN CORPUSCULAR VOLUME 88.1 FL (81.0-99.0); MEAN PLATELET VOLUME 7.8 FL (7.4-10.4); PLATELET COUNT 158 /CUMM (130-400); RBC DISTRIBUTION WIDTH 16.1 % (11.5-14.5); RED BLOOD CELL CT 3.19 /CUMM (4.20-5.40)
[2016-08-22] VITALS: BP 150/82; BP 150/90
[2016-08-22 05:46] LABS: ABSOLUTE BASOPHIL COUNT 0 /CUMM (0.0-0.2); ABSOLUTE EOSINOPHIL COUNT 0.4 /CUMM (0.0-0.7); ABSOLUTE GRANULOCYTE CT 6.2 /CUMM (1.4-6.5); ABSOLUTE LYMPH COUNT 0.9 /CUMM (1.2-3.4); ABSOLUTE MONOCYTE COUNT 0.9 /CUMM (0.10-0.60); BASOPHIL % 0.3 % (0.0-2.0); EOSINOPHIL % 4.8 % (0-5); GRANULOCYTE % 73.9 % (42.2-75.2); HEMATOCRIT 23.8 % (37-47); MEAN CORPUSCULAR HGB CONC 33.3 G/DL (33.0-37.0); MEAN CORPUSCULAR VOLUME 89.9 FL (81.0-99.0); MEAN PLATELET VOLUME 8.7 FL (7.4-10.4); PLATELET COUNT 153 /CUMM (130-400); RBC DISTRIBUTION WIDTH 16.4 % (11.5-14.5); RED BLOOD CELL CT 2.65 /CUMM (4.20-5.40); WHITE BLOOD CELL COUNT 8.4 /CUMM (4.8-10.8)
[2016-08-22 08:00] VITALS: BP 182/74
--- NOTE | 2016-08-22 08:45 | NUR ---
REC'D THE PT IN BED ATTEMTPING TO EAT BREAKFAST-HAD DIFFICULTY R/Y ARTHRITIS OF HANDS. ASISSTED PT WITH BREAKFAST. ATE 25% OF CLEAR LIQUID BREAKFAST AND TOLERATED. PT IS A&OX3, CARRANZA. PT IS IN A NSR WITHOUT ECTOPY PER THE WELL LOGGING OPERATOR MUD ANALYSIS. STEVEN BS ARE CLEAR BUT DIMINISHED WITH AN O2 SAT OF 95% ON A 2LNC. ABD IS SOFT WITH NORMOACTIVE BOWEL SOUNDS. PT WAS INCONTINENT OF AN EXTREMELY LG AMOUNT URINE WELL MOD AMT OF HEME POSITIVE LIQUID BROWN STOOL. PERICARE AND COMPLETE LINEN CHANGE PERFORMED. REMAINS ON NS AT 100ML/HR VIA A #20 TO THE RF.
--- NOTE | 2016-08-22 08:49 | PN- Resident CRCU ---
Subjective HPI/CRCU Issues: Pt denies bloody bowel movement overnight. She feels well without any abdominal pain. Although did complain of left lower abdominal pain later in the day, but also reports that pain has been chronic ( she has T12 compression pressure?) She has had some po intake, although has not been happy with the choices from clear and full liquid diet, if she continues to do well, she will get regular diet tonight. decreased fluid to 50ml/hr her hb was 7.9 in am, and 8.5 on repeat lab without transfusion. k was 3.2, mag 1.4, repleted with 60 kdur, and 400X2 mag ox. stable for transfer to . Objective Vital Signs & I&O Last 8 Hrs of Vitals and I&O: Intake & Output 08/22 1600 08/22 0800 08/22 0000 Intake Total 1000 1000 Output Total 100 Balance 900 1000 Intake, IV 900 800 Intake, Oral 100 200 Number 2 Bowel Movements Output, Urine 100 Patient 69.938 kg 71.753 kg Weight Laboratory Tests 08/22 08/22 1045 0400 Chemistry Sodium (137 - 145 mmol/L) 139 138 Potassium (3.5 - 5.1 mmol/L) 3.9 3.2 L Chloride (98 - 107 mmol/L) 108 H 107 Carbon Dioxide (22 - 30 mmol/L) 26 25 Anion Gap (5 - 16) 5 6 BUN (7 - 17 mg/dL) 12 15 Creatinine (0.5 - 1.0 mg/dL) 0.9 0.8 Estimated GFR (>60 ml/min) 59 L > 60 Glucose (65 - 99 mg/dL) 88 80 Calcium (8.4 - 10.2 mg/dL) 8.3 L 8.1 L Phosphorus (2.5 - 4.5 mg/dL) 3.0 3.2 Magnesium (1.6 - 2.3 mg/dL) 1.5 L 1.4 L Total Bilirubin (0.2 - 1.3 mg/dL) 0.4 0.4 AST (14 - 36 U/L) 35 37 H ALT (9 - 52 U/L) 36 33 Albumin (3.5 - 5.0 g/dL) 2.7 L 2.5 L Hematology CBC w Diff NO MAN DIFF REQ NO MAN DIFF REQ WBC (4.8 - 10.8 /CUMM) 10.2 8.4 RBC (4.20 - 5.40 /CUMM) 2.90 L 2.65 L Hgb (12.0 - 16.0 G/DL) 8.5 L 7.9 L Hct (37 - 47 %) 25.9 L 23.8 L MCV (81.0 - 99.0 FL) 89.3 89.9 MCH (27.0 - 31.0 PG) 29.2 30.0 RDW (11.5 - 14.5 %) 16.3 H 16.4 H Plt Count (130 - 400 /CUMM) 163 153 MPV (7.4 - 10.4 FL) 7.6 8.7 Gran % (42.2 - 75.2 %) 72.4 73.9 Lymphocytes % (20.5 - 51.1 %) 14.2 L 10.5 L Monocytes % (1.7 - 9.3 %) 9.8 H 10.5 H Eosinophils % (0 - 5 %) 3.3 4.8 Basophils % (0.0 - 2.0 %) 0.3 0.3 Absolute Granulocytes (1.4 - 6.5 /CUMM) 7.4 H 6.2 Absolute Lymphocytes (1.2 - 3.4 /CUMM) 1.4 0.9 L Absolute Monocytes (0.10 - 0.60 /CUMM) 1.0 H 0.9 H Absolute Eosinophils (0.0 - 0.7 /CUMM) 0.3 0.4 Absolute Basophils (0.0 - 0.2 /CUMM) 0 0 PUBS MCHC (33.0 - 37.0 G/DL) 32.7 L 33.3 15 08/21 2205 1405 Hematology CBC w Diff NO MAN DIFF REQ NO MAN DIFF REQ WBC (4.8 - 10.8 /CUMM) 10.0 8.3 RBC (4.20 - 5.40 /CUMM) 3.19 L 3.00 L Hgb (12.0 - 16.0 G/DL) 9.4 L 8.7 L Hct (37 - 47 %) 28.0 L 26.7 L MCV (81.0 - 99.0 FL) 88.1 89.1 MCH (27.0 - 31.0 PG) 29.4 29.0 RDW (11.5 - 14.5 %) 16.1 H 16.0 H Plt Count (130 - 400 /CUMM) 158 175 MPV (7.4 - 10.4 FL) 7.8 7.5 Gran % (42.2 - 75.2 %) 76.4 H 72.3 Lymphocytes % (20.5 - 51.1 %) 9.5 L 12.8 L Monocytes % (1.7 - 9.3 %) 8.7 9.4 H Eosinophils % (0 - 5 %) 4.3 5.3 H Basophils % (0.0 - 2.0 %) 1.1 0.2 Absolute Granulocytes (1.4 - 6.5 /CUMM) 7.6 H 6.0 Absolute Lymphocytes (1.2 - 3.4 /CUMM) 1.0 L 1.1 L Absolute Monocytes (0.10 - 0.60 /CUMM) 0.9 H 0.8 H Absolute Eosinophils (0.0 - 0.7 /CUMM) 0.4 0.4 Absolute Basophils (0.0 - 0.2 /CUMM) 0.1 0 PUBS MCHC (33.0 - 37.0 G/DL) 33.3 32.6 L Vital Signs Date Time Temp Pulse Resp B/P Pulse O2 O2 Flow FiO2 Ox Delivery Rate 08/22 1024 99.1 76 24 131/74 08/22 1024 99.1 76 24 131/74 08/22 0800 95 Nasal 2.0L Cannula 08/22 0800 99.1 78 24 182/74 95 Nasal 2.0L Cannula 08/22 0400 07 Nasal 2.0L Cannula 08/22 0004 98.2 78 26 132/78 08/22 0000 95 Nasal 2.0L Cannula 08/22 0000 97.8 84 33 150/90 93 Nasal 2.0L Cannula 08/21 2000 92 08/21 1800 98.0 79 28 143/71 08/21 1759 97 Nasal 2.0L Cannula 08/21 1600 100 Nasal 4.0L Cannula 08/21 1600 98.0 84 28 144/74 100 Nasal 4.0L Cannula Intake & Output 08/22 1600 Intake Total Output Total Balance Patient 69.938 kg Weight Exam General Appearance: no apparent distress, alert, awake Head: atraumatic Respiratory: normal breath sounds, chest non-tender, no respiratory distress Cardiovascular: regular rate/rhythm Gastrointestinal: normal bowel sounds, soft, non-tender Extremities: no edema Current Medications: Current Medications Sig/Raza Start time Last Medication Dose Route Stop Time Status Admin Acetaminophen 650 MG Q6P PRN 08/21 0045 PO Albuterol Sulfate 3 ML Q6PRN PRN 08/21 1145 AC 08/21 INH 1801 Budesonide/ 2 PUF BID 08/21 1000 AC 08/22 Formoterol Fumarate INH 1025 Carvedilol 6.25 MG BID 08/21 2200 AC 08/22 PO 1024 Ceftriaxone Sodium 1,000 MG Q24H 08/20 2345 AC 08/21 IV 2355 Ferrous Sulfate 325 MG DAILY 08/21 1000 AC 08/22 PO 1024 Folic Acid 1 MG DAILY 08/21 1000 AC 08/22 PO 1024 Furosemide 20 MG DAILY 08/21 1619 AC 08/22 PO 1024 Gabapentin 600 MG DAILY 08/21 1145 AC 08/22 PO 1025 Hydrochlorothiazide 25 MG DAILY 08/21 1619 AC 08/22 PO 1024 Hydroxychloroquine 200 MG BID 08/21 1000 AC 08/22 Sulfate PO 1024 Latanoprost 1 GTT AT BEDTIME 08/21 2200 AC 08/22 OPH 0010 Lisinopril 10 MG DAILY 08/21 1630 AC 08/22 PO 1024 Lorazepam 2 MG .STK-MED ONE 08/21 1657 DC IV 08/21 1658 Magnesium Oxide 400 MG BID 08/22 1000 AC 08/22 PO 08/22 2201 0658 Metronidazole 500 MG Q8H 08/21 1800 AC 08/22 N/A 1 UNIT IV 1025 Metronidazole 500 MG IQ8 08/21 0000 DC 08/21 N/A 1 UNIT IV 1801 Morphine Sulfate 2 MG Q4P PRN 08/21 0045 AC 08/22 IV 1145 Naphazoline HCl/ 1 GTT DAILY NEEDED PRN 08/21 0015 AC Pheniramine Maleate OPH Pantoprazole Sodium 40 MG DAILY 08/21 0030 AC 08/22 IV 1025 Potassium Chloride 60 MEQ ONCE ONE 08/22 0645 ND 08/22 PO 08/22 0646 0656 Sertraline HCl 50 MG DAILY 08/21 1140 AC 08/22 PO 1024 Sodium Chloride 1,000 ML Q6H 08/20 2345 AC 08/22 IV 1004 Sulfasalazine 500 MG BID 08/21 1000 AC 08/22 PO 1024 Tramadol HCl 50 MG BID PRN 08/21 0015 AC PO Trazodone HCl 50 MG AT BEDTIME 08/21 2200 AC 08/22 PO 0003 Impression/Plan Impression/Problem List Impression: Ms. 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 This lower abdominal pain began suddenly 1 day prior to admission and she had about 20 bloody BM prior to coming to ED, associated with lethargy and mild shortness of breath. In the ED: Vital signs showed T 96.2, HR 92, RR 18, BP 145/64 and O2 saturation of 95% on room air. CBC was significant for hb 7.3 (baseline 10-11), mild leukocytosis to 11.4 without bandemia (improved to 9.8) and BEP was significant for BUN/cre 27/1.3 (improved to 25/1). AST 39, alk phos 142, and INR 1.16. Patient is admitted to the intesive care unit and the following is the management: # BRBPR with acute blood loss anemia , most likely due to bleeding diverticulosis # Rule out ACS # Hx of HTN (antihypertensives on hold) # Severe depression/anxiety # Sigmoid diverrticulitis? # Rheumatoid arthritis Gastrointestinal # BRBPR with acute blood loss anemia, most likely due to bleeding diverticulosis # Sigmoid diverrticulitis? unlikely because the diverticulitis usually does not bleed, suspect the CT findings could be chronic (abdominal pain is referred pain from arthritic hip?) - CTA abdomen/pelvis showed marked diverticulosis of the sigmoid colon with mild submucosal thickening but no significant edema of the pericolonic fat. A mild diverticulitis however is not excluded. No pooling of contrast in the lumen to define intraluminal hemorrhage but there is a prominent vessel in the area of the marked diverticulosis of the proximal sigmoid colon which is suspicious for site of gastrointestinal hemorrhage. - Patient typed & screened and blood transfusion consent obtained in the ED - Complains of left lower abdominal pain, but also reports that pain has been chronic (she has T12 compression pressure?) * Stable for transfer to * 2 large bore IVs * Orthostats vitals * Hb 7.3, sp 2 units PRBC, las hb 8.5 (goal hb > 7). Follow up h/h in am * Consider CTA and contact IR for embolization if pt has large amount of bloody stool and seems to be actively bleeding * IVF with normal saline at 100 cc/h * IV flagyl and ceftriaxone started as CTA showed inflammatory changes of the bowel and white count slightly elevated on admission. Now day # 2. Consider discontinuing this. * Morphine for severe pain * IV protonix 40 mg daily, consider changing to PO * No NSAIDs Metabolic # Hypokalemia - K was 3.2, , repleted with 60 kdur, repeat 3.9. * Follow up am lab # Hypomagnesiumia mag 1.4, repleted with 400X2 mag ox. * F/U mag tomorrow Cardiovascular # Rule out ACS - Patient denies chest pain or ischemic symptoms, however in setting of acute blood loss anemia and many medical comorbidities, ACS needs to be ruled out * Troponin/EKG x 3 negative # History of HTN * Carvedilol 6.25 bid, Enalapril 10 mg daily ,Lasix 20 mg daily , HCTZ 25 mg daily has been resumed Respiratory # COPD not on home O2 - Patient currently stable on room air * Monitor oxygen saturation and provide supplemental O2/TRC nebs as needed * Continue symbicort Hematology # History of iron deficiency anemia * Continue ferrous sulfate daily Psychiatry # Severe depression/anxiety * Consider psych consult * Continue home meds Sertraline 50 mg daily, Trazodone 50 mg QPM * Although her home med is gabapentin 600 mg BID, due to her cr clearance, pharmacy recc 200-700 mg daily, so we will give 600 mg daily # Rheumatoid arthritis * Continue home sulfasalazine and hydroxychloroquine * Consider imaging studies of left hip/iliac Infectious disease # Sigmoid diverticulitis? - WBC normal * Follow blood cultures x 2, monitor for fevers * On ceftriaxone and flagyl, consider discontinuing # Continue home meds Latanoprost eye drop Naphthzolin eye drop # Consider restarting home meds currently on hold Esomeprazole 40 mg daily Tramadol Albuterol Advair (fluticasone/salmeterol) Nasonex Olapatadin eye drop Vit D3 Vit B 12 Voltaren Mild to severe pain pathway Diet: CLear liquid (breakfast) --> full liquid (lunch) --> heart healthy (dinner ) IVF: 50ml/hr NS DVTP: ALPS, no pharm due to BRBPR DNR/DNI Problem List: 1. Diverticulosis of colon 2. Acute blood loss anemia 3. Lower GI bleed Pain Ratin Tomorrow's Labs & Rationales: bep and mag for hypokalemia and hypomag cbc for abla Plan DVT/Prophylaxis: mechanical
--- NOTE | 2016-08-22 10:37 | PN- CRCU ---
Subjective HPI/Critical Care Issues: The patient is awake and appears comfortable. She has not had any bleeding overnight. She appears anxious. The patient's hemoglobin however has continued to decrease. She underwent EGD and colonoscopy that showed extensive diverticulosis and several other incidental findings, without any evidence of active GI bleeding. There were no overnight events reported. Objective Current Medications: Current Medications Sig/Raza Start time Last Medication Dose Route Stop Time Status Admin Acetaminophen 650 MG Q6P PRN 08/21 0045 AC PO Albuterol Sulfate 3 ML Q6PRN PRN 08/21 1145 AC 08/21 INH 1801 Budesonide/ 2 PUF BID 08/21 1000 AC 08/22 Formoterol Fumarate INH 1025 Carvedilol 6.25 MG BID 08/21 2200 AC 08/22 PO 1024 Ceftriaxone Sodium 1,000 MG Q24H 08/20 2345 AC 08/21 IV 2355 Ferrous Sulfate 325 MG DAILY 08/21 1000 AC 08/22 PO 1024 Folic Acid 1 MG DAILY 08/21 1000 AC 08/22 PO 1024 Furosemide 20 MG DAILY 08/21 1619 AC 08/22 PO 1024 Gabapentin 600 MG DAILY 08/21 1145 AC 08/22 PO 1025 Hydralazine HCl 5 MG ONCE ONE 08/21 1145 DC 08/21 IV 08/21 1146 1258 Hydrochlorothiazide 25 MG DAILY 08/21 1619 AC 08/22 PO 1024 Hydromorphone HCl 0 .STK-MED ONE 08/21 1027 DC .ROUTE Hydroxychloroquine 200 MG BID 08/21 1000 AC 08/22 Sulfate PO 1024 Latanoprost 1 GTT AT BEDTIME 08/21 2200 AC 08/22 OPH 0010 Lisinopril 10 MG DAILY 08/21 1630 AC 08/22 PO 1024 Lorazepam 2 MG .STK-MED ONE 08/21 1657 DC IV 08/21 1658 Lorazepam 0.5 MG ONCE ONE 08/21 1300 DC 08/21 IV 08/21 1301 1301 Magnesium Oxide 400 MG BID 08/22 1000 AC 08/22 PO 08/22 2201 0658 Metronidazole 500 MG Q8H 08/21 1800 AC 08/22 N/A 1 UNIT IV 1025 Metronidazole 500 MG IQ8 08/21 0000 DC 08/21 N/A 1 UNIT IV 1801 Morphine Sulfate 2 MG Q4P PRN 08/21 0045 AC 08/21 IV 1923 Naphazoline HCl/ 1 GTT DAILY NEEDED PRN 08/21 0015 AC Pheniramine Maleate OPH Pantoprazole Sodium 40 MG DAILY 08/21 0030 AC 08/22 IV 1025 Potassium Chloride 60 MEQ ONCE ONE 08/22 0645 DC 08/22 PO 08/22 0646 0656 Sertraline HCl 50 MG DAILY 08/21 1140 AC 08/22 PO 1024 Sodium Chloride 1,000 ML Q6H 08/20 2345 AC 08/22 IV 1004 Sulfasalazine 500 MG BID 08/21 1000 AC 08/22 PO 1024 Tramadol HCl 50 MG BID PRN 08/21 0015 PO Trazodone HCl 50 MG AT BEDTIME 08/21 2200 AC 08/22 PO 0003 Vital Signs & I&O Last 24 Hrs of Vitals and I&O: Vital Signs Date Time Temp Pulse Resp B/P Pulse O2 O2 Flow FiO2 Ox Delivery Rate 08/22 1024 99.1 76 24 131/74 08/22 1024 99.1 76 24 131/74 08/22 0800 95 Nasal 2.0L Cannula 08/22 0800 99.1 78 24 182/74 95 Nasal 2.0L Cannula 08/22 0400 07 Nasal 2.0L Cannula 08/22 0004 98.2 78 26 132/78 08/22 0000 95 Nasal 2.0L Cannula 08/22 0000 97.8 84 33 150/90 93 Nasal 2.0L Cannula 08/21 2000 92 08/21 1800 98.0 79 28 143/71 08/21 1759 97 Nasal 2.0L Cannula 08/21 1600 100 Nasal 4.0L Cannula 08/21 1600 98.0 84 28 144/74 100 Nasal 4.0L Cannula 08/21 1258 97.3 83 22 182/79 08/21 1156 98 Room Air Room Air 08/21 1128 Room Air Room Air Intake & Output 08/22 1600 08/22 0800 08/22 0000 Intake Total 1000 1000 Output Total 100 Balance 900 1000 Intake, IV 900 800 Intake, Oral 100 200 Number 2 Bowel Movements Output, Urine 100 Patient 154 lb 158 lb Weight Exam General Appearance: well developed/nourished, no apparent distress, awake, anxious Head: atraumatic, normal appearance Neck: supple Respiratory: normal breath sounds, no respiratory distress Cardiovascular: edema Abdomen: normal bowel sounds, soft, non-tender Extremities: no edema Skin: intact, normal color, warm/dry Results Last 24 Hrs of Lab Results: Laboratory Tests 08/22/16 0400: Anion Gap 6, Estimated GFR > 60, Glucose 80, Calcium 8.1 L, Phosphorus 3.2, Magnesium 1.4 L, Total Bilirubin 0.4, AST 37 H, ALT 33, Albumin 2.5 L, CBC w Diff NO MAN DIFF REQ, RBC 2.65 L, MCV 89.9, MCH 30.0, RDW 16.4 H, MPV 8.7, Gran % 73.9, Lymphocytes % 10.5 L, Monocytes % 10.5 H, Eosinophils % 4.8, Basophils % 0.3, Absolute Granulocytes 6.2, Absolute Lymphocytes 0.9 L, Absolute Monocytes 0.9 H, Absolute Eosinophils 0.4, Absolute Basophils 0, PUBS MCHC 33.3 08/21/16 2205: CBC w Diff NO MAN DIFF REQ, RBC 3.19 L, MCV 88.1, MCH 29.4, RDW 16.1 H, MPV 7.8, Gran % 76.4 H, Lymphocytes % 9.5 L, Monocytes % 8.7, Eosinophils % 4.3, Basophils % 1.1, Absolute Granulocytes 7.6 H, Absolute Lymphocytes 1.0 L, Absolute Monocytes 0.9 H, Absolute Eosinophils 0.4, Absolute Basophils 0.1, PUBS MCHC 33.3 08/21/16 1405: CBC w Diff NO MAN DIFF REQ, RBC 3.00 L, MCV 89.1, MCH 29.0, RDW 16.0 H, MPV 7.5, Gran % 72.3, Lymphocytes % 12.8 L, Monocytes % 9.4 H, Eosinophils % 5.3 H, Basophils % 0.2, Absolute Granulocytes 6.0, Absolute Lymphocytes 1.1 L, Absolute Monocytes 0.8 H, Absolute Eosinophils 0.4, Absolute Basophils 0, PUBS MCHC 32.6 L 08/21/16 1040: Troponin I 0.02, CBC w Diff NO MAN DIFF REQ, RBC 3.20 L, MCV 88.3, MCH 29.7, RDW 15.8 H, MPV 7.4, Gran % 68.4, Lymphocytes % 18.5 L, Monocytes % 8.6, Eosinophils % 4.3, Basophils % 0.2, Absolute Granulocytes 7.7 H, Absolute Lymphocytes 2.1, Absolute Monocytes 1.0 H, Absolute Eosinophils 0.5, Absolute Basophils 0, PUBS MCHC 33.6 Impression/Plan Impression/Plan Impression/Plan: 1. Acute blood loss anemia, without active bleeding. The patient's hemoglobin has decreased however she does not appear to be actively bleeding. 2. Pandiverticulosis. 3. Hypertension. 4. Severe depression/anxiety. 5. History of rheumatoid arthritis. Recommendations: * Follow up repeat CBC and determine if patient would benefit from interventional radiology evaluation. * Keep hemoglobin greater than 7. * Follow up cultures. * Continue ceftriaxone and Flagyl pending data. * Continue nebs/TRC. * Continue Symbicort. * Continue home antihypertensive regimen. * DVT prophylaxis with Alps. No heparin due to bleeding. * Continue all supportive care. * Downgrade to GEN [employer].
[2016-08-22 11:27] LABS: ABSOLUTE BASOPHIL COUNT 0 /CUMM (0.0-0.2); ABSOLUTE EOSINOPHIL COUNT 0.3 /CUMM (0.0-0.7); ABSOLUTE GRANULOCYTE CT 7.4 /CUMM (1.4-6.5); ABSOLUTE LYMPH COUNT 1.4 /CUMM (1.2-3.4); BASOPHIL % 0.3 % (0.0-2.0); EOSINOPHIL % 3.3 % (0-5); GRANULOCYTE % 72.4 % (42.2-75.2); HEMATOCRIT 25.9 % (37-47); MEAN CORPUSCULAR HGB 29.2 PG (27.0-31.0); MEAN CORPUSCULAR HGB CONC 32.7 G/DL (33.0-37.0); MEAN CORPUSCULAR VOLUME 89.3 FL (81.0-99.0); MEAN PLATELET VOLUME 7.6 FL (7.4-10.4); PLATELET COUNT 163 /CUMM (130-400); RBC DISTRIBUTION WIDTH 16.3 % (11.5-14.5); WHITE BLOOD CELL COUNT 10.2 /CUMM (4.8-10.8)
--- NOTE | 2016-08-22 14:55 | PN- Gastroenterology ---
Assessment/Plan Assessment/Recommendations: 89-year-old female, DNR/DNR (although okay to temporarily intubated for procedure), HTN, non-DM, COPD without home O2 (nonsmoker, probable occupational exposure), RA/DJD (on Sulfasalazine, Plaquenil and possibly Mobic), with extensive past history, followed primarily in the [place] area, with IBS, GERD (on Nexium 40 mg daily for years; remote EGD in [place] with unknown results), history of "spastic esophagus," lactose intolerance, anxiety, depression, insomnia, neuropathy, T12 compression fracture, osteopenia, essential tremor, chronic iron deficiency anemia (vs. anemia of chronic disease- baseline Hgb 10- requiring transfusions in the past), history of pneumonia 2012, mitral regurgitation, mild pulmonary hypertension, glaucoma ("legally blind"), CCKY, APPY, FCBD, right wrist surgery for chronic osteomyelitis, B/L ORIF hips, diverticulosis coli, history of colon adenoma, presenting to the [facility] 08/20/2016 at 9:33 PM, BIBA from home (lives alone, in assisted living- uses walker), complaining of multiple (20) episodes of rectal bleeding starting 9 AM that morning, with questionable associated left lower quadrant pain vs. left hip pain. Upon arrival, BP 145/64, P 92, R 18, T 96.2, O2 sat RA 95%. The patient was given IV morphine and IV NS 500 mL fluid bolus. I did not see any documented orthostatic changes. Initially, the bleeding started after passing a few small pieces of brown stool, but the vast majority of the bleeding was spontaneous in nature. There was no melena, although the patient claims her stools are occasionally dark "from her iron". There was no associated chest pain or increase of her baseline shortness of breath. She denied any palpitations or LOC. Aside from the questionable Mobic, the patient does not take any NSAIDs, aspirin, or anticoagulants. Upon arrival, her underwear was stained with blood. The patient claims her bowel movements are anywhere from once a day to every 3 days, and are chronically irregular. There is no long-standing diarrhea, constipation, obstipation, change in stool caliber, or tenesmus. She denies any previous history of GI bleeding or peptic ulcer disease. Her reflux is relatively stable on Nexium. She denies any hematemesis, odynophagia, dysphagia , early satiety, weight loss, fevers, chills, or jaundice. Her appetite is fair. She denies any symptoms of UTI or URI. She denies any history of bleeding disorders. There was no hemoptysis, hematuria, or vaginal spotting. There is no history of abdominal trauma. She denies any history of AAA. She is a nonsmoker and denies EtOH. There is no family history of GI malignancy, GI disease, or inherited liver disease. 08/20/2016: *Admission H/H 7.8/24, dropping to 7.3/21.5 (see below) & patient was given 1 unit PRBC. She is awaiting an ICU bed. She claims her niece and nephew are aware that she is in the hospital. She has no children. Her POA is her nephew, Yared Mercer ([phone]), but she claims she makes her own medical decisions. *A 1 gallon per day with GoLYTELY was ordered, however the patient was not compliant with this. *She refused NG tube placement for purge on admission. According to the [facility] computer, 12/18/2006: Colonoscopy to the cecum per Dr. Bonds- extensive pandiverticulosis coli, small internal hemorrhoids, snare polypectomy of 5 mm benign tubular adenoma from the transverse colon. The patient apparently had a subsequent colonoscopy in [place], [place], around 2011, per Dr. Aggarwal & "polyps removed," per patient. 08/20/2016: 10 p.m. Admissiomn labs- WBC 11.4 (no left shift), H/H 7.8/24, MCV 88.8, RDW 17.2, PLT 255, PT 12.2, INR 1.16, glucose 97, BUN/Cr 27/1.3, GFR 39, Na 139, K 4.1, HCO3 26, lactate 0.9, albumin 3.3, globulin 2.4, TBil 0.4, borderline alk phos 142, AST 39, ALT 33, troponin .02, Fe 36, TIBC 252 (c/w chronic disease), ferritin 37.2 08/21/2016: 2:30 a.m.- WBC 8.6, H/H 7.3/21.5, PLT 200 The patient was empirically started on IV Ceftriaxone 1g daily & IV Flagyl 500 mg Q8h, per the medical house staff, for soft findings of questionable sigmoid diverticulitis on CT. 08/20/2016: BC X 2- negative so far. 08/20/2016: EKG- Sinus arrhythmia @ 77, RBBB, LAHB, flipped T in II & F, PRWP. 08/20/2016: CT ABD & PELVIS ANGIOGRAM (per ER)- 1. Marked diverticulosis of the sigmoid colon with mild submucosal thickening but no significant edema of the pericolonic fat. A mild diverticulitis, however, is not excluded. 2. No pooling of contrast in the lumen to define intraluminal hemorrhage but there is a *prominent vessel in the area of the marked diverticulosis of the proximal sigmoid colon which is suspicious for site of gastrointestinal hemorrhage. 3. 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 Fat-containing umbilical hernia. 4. Atherosclerotic vascular wall calcifications of aorta and iliac arteries, without aneurysm. 5. Bilateral renal cyst. Mild cortical thinning of kidneys bilaterally. Uterine fibroids. 6. Markedly DJD. Levoscoliosis of L-spine. B/L ORIF hips. *Clinically, the patient appears be having a diverticular bleed. Anther possibility could be angiodysplasia. *Admission CTA was suggestive of possible bleed in the sigmoid region. The history of colon polyps are noted. Neoplasm usually does not bleed to this degree. There is nothing by history to suggest colitis. Clinically, doubt rapid transit upper GI bleed or small bowel etiology. The patient is on PPI for history of GERD. There is no history of AAA. The soft findings of questionable sigmoid diverticulitis are noted on admission CTA, but one usually does not get diverticular bleeding and diverticulitis simultaneously. Clinically, I do not think the patient has diverticulitis. 08/07/2016: XRY-PORTABLE ABDOMEN- No evidence of intestinal obstruction. Diverticula. Tortuous calcified aorta. DJD. CCKY. B/L compression nails in hips. 08/21/2016: *Combined follow-up colonoscopy to the terminal ileum, plus EGD to the third portion of the duodenum- Impression: 1. Extensive pandiverticulosis coli, left-sided greater than right, from the sigmoid to the cecum. 2. Normal colonic mucosa to the terminal ileum (fair prep, which could have obscured a tiny polyp). 3. Mild internal hemorrhoids, without any active bleeding. 4. Reddish tinged liquid, washed and suctioned from the sigmoid; without any active bleed. 5. Small hernia, with Z line at 36 cm 6. Incidental non-bleeding sessile gastric polyps, proximal stomach, maximal diameter 1 cm, left intact. 7. Incidental duodenal diverticulum, second portion of the duodenum. [*No active lower or upper GI bleeding seen at present. Clinically, the patient probably had a self-limited diverticular bleed. Small bowel etiology less likely clinically]. *As of 08/22/2016, the patient remains hemodynamically stable with Tm 99.1 & O2 sat 2L 95%. She has had no recurrent overt GI bleeding. Her stools are brown with residual OB positive contents, as expected. She has required a total of 2 units PRBC this admission, last given 08/21/2016. She has been downgraded to General Medicine & is tolerating full lliquids po. She is receiving DVT prophylaxis with mechanical ALPS. She remains on IV Ceftriaxone and Flagyl, although clinically she does not have diverticulitis. Her vague left-sided symptoms are reproducible when palpating her lower left subcostal region. She admits to a history of falls. She has a benign abdominal exam. Her Hgb today is 8.5 (baseline Hgb 10). SUGGEST: Agree with transfer to General Medicine. Full liquids po & advance diet as tolerated. Check CBC daily for now. Keep Hgb > 7 (no documented ASHD). 2 large- bore IVs. Strict I's and O's. Supplemental oxygen as needed. Continue PPI for GERD (vs. switching to H2B, as PPI can stimulate gastric polyps to grow). No NSAIDs. T&C 4u PRBC. Consideration for consulting IR for potential angiography with embolization, and/or surgery IF patient actively rebleeds. *Consider stopping Ceftriaxone and Flagyl (clinically doubt diverticulitis). *Consider imaging studies of left hip/left iliac crest/left ribs, per medical team (* history of falls, ? referred pain from T12 compression fracture). Based on patient's advanced age, I do not feel there is any role for further surveillance colonoscopies, regarding the history of colon adenomas.*Consideration for outpatient [facility] (small bowel etiology much less likely; s/p probable self- limited diverticular bleed). The above was again discussed with the medical house staff, the patient, & the patient's niece, Tequila Mercer ([phone]), on 08/22/2016.*Further inpatient GI follow-up as needed. The patient has my office number, if she desires an outpatient PillCam. Problem List: 1. Acute blood loss anemia 2. Lower GI bleed 3. Diverticulosis of colon 4. GERD (gastroesophageal reflux disease) 5. Rib pain on left side 6. History of gastric polyp 7. Duodenal diverticulum Subjective Subjective: 08/07/2016: XRY-PORTABLE ABDOMEN- No evidence of intestinal obstruction. Diverticula. Tortuous calcified aorta. DJD. CCKY. B/L compression nails in hips. 08/21/2016: *Combined follow-up colonoscopy to the terminal ileum, plus EGD to the third portion of the duodenum- Impression: 1. Extensive pandiverticulosis coli, left-sided greater than right, from the sigmoid to the cecum. 2. Normal colonic mucosa to the terminal ileum (fair prep, which could have obscured a tiny polyp). 3. Mild internal hemorrhoids, without any active bleeding. 4. Reddish tinged liquid, washed and suctioned from the sigmoid; without any active bleed. 5. Small hernia, with Z line at 36 cm 6. Incidental non-bleeding sessile gastric polyps, proximal stomach, maximal diameter 1 cm, left intact. 7. Incidental duodenal diverticulum, second portion of the duodenum. [*No active lower or upper GI bleeding seen at present. Clinically, the patient probably had a self-limited diverticular bleed. Small bowel etiology less likely clinically]. *As of 08/22/2016, the patient remains hemodynamically stable with Tm 99.1 & O2 sat 2L 95%. She has had no recurrent overt GI bleeding. Her stools are brown with residual OB positive contents, as expected. She has required a total of 2 units PRBC this admission, last given 08/21/2016. She has been downgraded to General Medicine & is tolerating full lliquids po. She is receiving DVT prophylaxis with mechanical ALPS. She remains on IV Ceftriaxone and Flagyl, although clinically she does not have diverticulitis. Her vague left-sided symptoms are reproducible when palpating her lower left subcostal region. She admits to a history of falls. She has a benign abdominal exam. Her Hgb today is 8.5 (baseline Hgb 10). Review of Systems: Full 14 point review of systems otherwise noncontributory, and as above. Review of Systems Constitutional: Denies: chills, diaphoresis, fever, malaise, weakness, unexplained weight loss. EENTM: Reports: visual changes (glaucoma), hearing changes ([place]). Denies: blurred vision, double vision, eye pain, eye drainage, eye tearing, icterus, ear discharge, ear pain, ear redness, nasal congestion, epistaxis, nasal pain, throat pain, throat swelling, mouth pain, tooth pain. Cardiovascular: Denies: chest pain, edema, orthopena, palpitations, peripheral edema, syncope. Respiratory: Reports: short of breath (mild baseline (COPD)). Denies: cough, hemoptysis, orthopnea, sputum production, stridor, wheezing. GI: Reports: "abdominal pain" (appears left subcostal > left hip, not LLQ); BRBPR- resolved. Denies: bloating, constipation, diarrhea, distention, bowel incontinence, melena , nausea, changes in stool, vomiting, steatorrhea. Genitourinary: Denies: discharge, dysuria, frequency, hematuria, hesitation, nocturia, pain, urgency. Musculoskeletal: Reports: back pain, joint pain (DJD/RA/comp fxs/osteopenia). Denies: gout, joint swelling, muscle pain, muscle stiffness, neck pain. Skin: Denies: cysts, change in skin color, change in hair/nails, dryness, erythema, jaundice, lesions, lymphangitis, lumps, moles, rash. Neurological/Psychological: Reports: anxiety, depressed, emotional problems, paresthesia (hx neuropathy), tremors (essential). Denies: ataxia, cognitive dysfunction, confusion, dementia , headache, numbness, pre-existing deficit, petit mal seizures, tingling, tonic- clonic seizures, unable to move lower ext, unable to move upper ext, weakness. Hematologic/Endocrine: Reports: other (anemia of chronic disease > Fe def). Denies: bruising, bleeding, polyuria, polydipsia. Immunologic/Allergic: Denies: splenectomy, HIV/AIDS, lymphadenopathy. All Other Systems: Reviewed and Negative Objective Vital Signs and I&Os Vital Signs Date Time Temp Pulse Resp B/P Pulse O2 O2 Flow FiO2 Ox Delivery Rate 08/22 1024 99.1 76 24 131/74 08/22 1024 99.1 76 24 131/74 08/22 0800 95 Nasal 2.0L Cannula 08/22 0800 99.1 78 24 182/74 95 Nasal 2.0L Cannula 08/22 0400 07 Nasal 2.0L Cannula 08/22 0004 98.2 78 26 132/78 03 0000 95 Nasal 2.0L Cannula 08/22 0000 97.8 84 33 150/90 93 Nasal 2.0L Cannula 08/21 2000 92 08/21 1800 98.0 79 28 143/71 08/21 1759 97 Nasal 2.0L Cannula 08/21 1600 100 Nasal 4.0L Cannula 08/21 1600 98.0 84 28 144/74 100 Nasal 4.0L Cannula Intake & Output 08/22 1600 08/22 0400 08/21 1600 08/21 0400 08/20 1600 08/20 0400 Intake Total 2072 1000 434 50 Output Total 100 425 Balance 1972 1000 9 50 Intake, IV 1672 800 434 50 Intake, Oral 400 200 Number 1 2 2 Bowel Movements Output, Stool 150 Output, Urine 100 275 Patient 154 lb 155 lb Weight Physical Exam: Well-developed, well-nourished, anxious depressed, slightly agitated, fragile elderly female, in no apparent distress. Sclera anicteric. Conjunctiva pink. Oropharynx clear. There is no adenopathy, thyromegaly, or JVD. No peripheral stigmata of inflammatory bowel disease or chronic liver disease on exam. No spiders on the anterior chest wall. No CVA tenderness. Levoscoliosis. No definite spine tenderness. Breast & pelvic exams: API. Lungs: clear to A&P, with slightly prolonged expiratory phase. No wheezing, rales, or rhonchi. Heart exam: regular rate rhythm, S1 and S2, with II/ systolic murmur. Rare ectopic beat. Abdominal exam: normal bowel sounds, soft belly, nontender, without guarding or rebound. Reducible small umbilical hernia, otherwise no mass. No organomegaly. No fluid shift. No pulsatile mass. No epigastric bruit. *I cannot elicit any definite LLQ tenderness on exam & the patient appears somewhat tender over the lower left subcostal region > left iliac crest. Digital rectal exam: per VICTORINO Lang, in ER on admission- BRB with clots (evident in commode), without mass (*currently resolved). Extremities: without cyanosis or clubbing. Trace LE edema B/L, L > R. No palpable cords. No rash. + RA > DJD diffusely, without active crepitus. (The patient is not fully compliant with ROM of hips B/L). Distal pulses 1+ bilaterally. DTRs 2+ bilaterally. Alert and oriented x 3. Motor 4/5 B/L. Mild essential tremor. A detailed exam for peripheral neuropathy was deferred, but is present by history. Current Medications: Current Medications Sig/Raza Start time Last Medication Dose Route Stop Time Status Admin Acetaminophen 650 MG Q6P PRN 08/21 0045 AC PO Albuterol Sulfate 3 ML Q6PRN PRN 08/21 1145 AC 08/21 INH 1801 Budesonide/ 2 PUF BID 08/21 1000 AC 08/22 Formoterol Fumarate INH 1025 Carvedilol 6.25 MG BID 08/21 2200 AC 08/22 PO 1024 Ceftriaxone Sodium 1,000 MG Q24H 08/20 2345 AC 08/21 IV 2355 Ferrous Sulfate 325 MG DAILY 08/21 1000 AC 08/22 PO 1024 Folic Acid 1 MG DAILY 08/21 1000 AC 08/22 PO 1024 Furosemide 20 MG DAILY 08/21 1619 AC 08/22 PO 1024 Gabapentin 600 MG DAILY 08/21 1145 AC 08/22 PO 1025 Hydrochlorothiazide 25 MG DAILY 08/21 1619 AC 08/22 PO 1024 Hydroxychloroquine 200 MG BID 08/21 1000 AC 08/22 Sulfate PO 1024 Latanoprost 1 GTT AT BEDTIME 08/21 2200 AC 08/22 OPH 0010 Lisinopril 10 MG DAILY 08/21 1630 AC 08/22 PO 1024 Lorazepam 2 MG .STK-MED ONE 08/21 1657 DC IV 08/21 1658 Magnesium Oxide 400 MG BID 08/22 1000 AC 08/22 PO 08/22 2201 0658 Metronidazole 500 MG Q8H 08/21 1800 AC 08/22 N/A 1 UNIT IV 1025 Metronidazole 500 MG IQ8 08/21 0000 DC 08/21 N/A 1 UNIT IV 1801 Morphine Sulfate 2 MG Q4P PRN 08/21 0045 AC 08/22 IV 1145 Naphazoline HCl/ 1 GTT DAILY NEEDED PRN 08/21 0015 AC Pheniramine Maleate OPH Pantoprazole Sodium 40 MG DAILY 08/21 0030 AC 08/22 IV 1025 Potassium Chloride 60 MEQ ONCE ONE 08/22 0645 DC 08/22 PO 08/22 0646 0656 Sertraline HCl 50 MG DAILY 08/21 1140 AC 08/22 PO 1024 Sodium Chloride 1,000 ML Q6H 08/20 2345 AC 08/22 IV 1004 Sulfasalazine 500 MG BID 08/21 1000 AC 08/22 PO 1024 Tramadol HCl 50 MG BID PRN 08/21 0015 AC PO Trazodone HCl 50 MG AT BEDTIME 08/21 2200 AC 08/22 PO 0003 Results Pertinent Lab Results: Laboratory Tests 08/22 08/22 1045 0400 Chemistry Sodium (137 - 145 mmol/L) 139 138 Potassium (3.5 - 5.1 mmol/L) 3.9 3.2 L Chloride (98 - 107 mmol/L) 108 H 107 Carbon Dioxide (22 - 30 mmol/L) 26 25 Anion Gap (5 - 16) 5 6 BUN (7 - 17 mg/dL) 12 15 Creatinine (0.5 - 1.0 mg/dL) 0.9 0.8 Estimated GFR (>60 ml/min) 59 L > 60 Glucose (65 - 99 mg/dL) 88 80 Calcium (8.4 - 10.2 mg/dL) 8.3 L 8.1 L Phosphorus (2.5 - 4.5 mg/dL) 3.0 3.2 Magnesium (1.6 - 2.3 mg/dL) 1.5 L 1.4 L Total Bilirubin (0.2 - 1.3 mg/dL) 0.4 0.4 AST (14 - 36 U/L) 35 37 H ALT (9 - 52 U/L) 36 33 Albumin (3.5 - 5.0 g/dL) 2.7 L 2.5 L Hematology CBC w Diff NO MAN DIFF REQ NO MAN DIFF REQ WBC (4.8 - 10.8 /CUMM) 10.2 8.4 RBC (4.20 - 5.40 /CUMM) 2.90 L 2.65 L Hgb (12.0 - 16.0 G/DL) 8.5 L 7.9 L Hct (37 - 47 %) 25.9 L 23.8 L MCV (81.0 - 99.0 FL) 89.3 89.9 MCH (27.0 - 31.0 PG) 29.2 30.0 RDW (11.5 - 14.5 %) 16.3 H 16.4 H Plt Count (130 - 400 /CUMM) 163 153 MPV (7.4 - 10.4 FL) 7.6 8.7 Gran % (42.2 - 75.2 %) 72.4 73.9 Lymphocytes % (20.5 - 51.1 %) 14.2 L 10.5 L Monocytes % (1.7 - 9.3 %) 9.8 H 10.5 H Eosinophils % (0 - 5 %) 3.3 4.8 Basophils % (0.0 - 2.0 %) 0.3 0.3 Absolute Granulocytes (1.4 - 6.5 /CUMM) 7.4 H 6.2 Absolute Lymphocytes (1.2 - 3.4 /CUMM) 1.4 0.9 L Absolute Monocytes (0.10 - 0.60 /CUMM) 1.0 H 0.9 H Absolute Eosinophils (0.0 - 0.7 /CUMM) 0.3 0.4 Absolute Basophils (0.0 - 0.2 /CUMM) 0 0 PUBS MCHC (33.0 - 37.0 G/DL) 32.7 L 33.3 08/21 08/21 2205 1405 Hematology CBC w Diff NO MAN DIFF REQ NO MAN DIFF REQ WBC (4.8 - 10.8 /CUMM) 10.0 8.3 RBC (4.20 - 5.40 /CUMM) 3.19 L 3.00 L Hgb (12.0 - 16.0 G/DL) 9.4 L 8.7 L Hct (37 - 47 %) 28.0 L 26.7 L MCV (81.0 - 99.0 FL) 88.1 89.1 MCH (27.0 - 31.0 PG) 29.4 29.0 RDW (11.5 - 14.5 %) 16.1 H 16.0 H Plt Count (130 - 400 /CUMM) 158 175 MPV (7.4 - 10.4 FL) 7.8 7.5 Gran % (42.2 - 75.2 %) 76.4 H 72.3 Lymphocytes % (20.5 - 51.1 %) 9.5 L 12.8 L Monocytes % (1.7 - 9.3 %) 8.7 9.4 H Eosinophils % (0 - 5 %) 4.3 5.3 H Basophils % (0.0 - 2.0 %) 1.1 0.2 Absolute Granulocytes (1.4 - 6.5 /CUMM) 7.6 H 6.0 Absolute Lymphocytes (1.2 - 3.4 /CUMM) 1.0 L 1.1 L Absolute Monocytes (0.10 - 0.60 /CUMM) 0.9 H 0.8 H Absolute Eosinophils (0.0 - 0.7 /CUMM) 0.4 0.4 Absolute Basophils (0.0 - 0.2 /CUMM) 0.1 0 PUBS MCHC (33.0 - 37.0 G/DL) 33.3 32.6 L 15 15 03/15 1040 1000 0550 Chemistry Lactic Acid (0.7 - 2.1 mmol/L) 0.9 Troponin I (< 0.11 ng/ml) 0.02 Hematology CBC w Diff NO MAN DIFF REQ Cancelled WBC (4.8 - 10.8 /CUMM) 11.3 H Cancelled RBC (4.20 - 5.40 /CUMM) 3.20 L Cancelled Hgb (12.0 - 16.0 G/DL) 9.5 L Cancelled Hct (37 - 47 %) 28.2 L Cancelled MCV (81.0 - 99.0 FL) 88.3 Cancelled MCH (27.0 - 31.0 PG) 29.7 Cancelled RDW (11.5 - 14.5 %) 15.8 H Cancelled Plt Count (130 - 400 /CUMM) 202 Cancelled MPV (7.4 - 10.4 FL) 7.4 Cancelled Gran % (42.2 - 75.2 %) 68.4 Lymphocytes % (20.5 - 51.1 %) 18.5 L Monocytes % (1.7 - 9.3 %) 8.6 Eosinophils % (0 - 5 %) 4.3 Basophils % (0.0 - 2.0 %) 0.2 Absolute Granulocytes (1.4 - 6.5 /CUMM) 7.7 H Absolute Lymphocytes (1.2 - 3.4 /CUMM) 2.1 Absolute Monocytes (0.10 - 0.60 /CUMM) 1.0 H Absolute Eosinophils (0.0 - 0.7 /CUMM) 0.5 Absolute Basophils (0.0 - 0.2 /CUMM) 0 PUBS MCHC (33.0 - 37.0 G/DL) 33.6 Cancelled 08/21 08/21 0550 0230 Chemistry Sodium (137 - 145 mmol/L) 140 Potassium (3.5 - 5.1 mmol/L) 4.2 Chloride (98 - 107 mmol/L) 108 H Carbon Dioxide (22 - 30 mmol/L) 24 Anion Gap (5 - 16) 9 BUN (7 - 17 mg/dL) 25 H Creatinine (0.5 - 1.0 mg/dL) 1.0 Estimated GFR (>60 ml/min) 52 L Glucose (65 - 99 mg/dL) 89 Calcium (8.4 - 10.2 mg/dL) 8.7 Phosphorus (2.5 - 4.5 mg/dL) 3.9 Magnesium (1.6 - 2.3 mg/dL) 1.6 Total Bilirubin (0.2 - 1.3 mg/dL) 0.4 AST (14 - 36 U/L) 52 H ALT (9 - 52 U/L) 41 Troponin I (< 0.11 ng/ml) 0.02 Albumin (3.5 - 5.0 g/dL) 3.0 L Hematology CBC w Diff NO MAN DIFF REQ NO MAN DIFF REQ WBC (4.8 - 10.8 /CUMM) 9.8 8.6 RBC (4.20 - 5.40 /CUMM) 2.79 L 2.44 L Hgb (12.0 - 16.0 G/DL) 8.1 L 7.3 *L Hct (37 - 47 %) 25.2 L 21.5 L MCV (81.0 - 99.0 FL) 90.2 88.1 MCH (27.0 - 31.0 PG) 29.2 29.9 RDW (11.5 - 14.5 %) 16.1 H 16.4 H Plt Count (130 - 400 /CUMM) 213 200 MPV (7.4 - 10.4 FL) 7.8 7.3 L Gran % (42.2 - 75.2 %) 64.3 65.4 Lymphocytes % (20.5 - 51.1 %) 21.1 20.5 Monocytes % (1.7 - 9.3 %) 9.6 H 8.7 Eosinophils % (0 - 5 %) 4.5 5.0 Basophils % (0.0 - 2.0 %) 0.5 0.4 Absolute Granulocytes (1.4 - 6.5 /CUMM) 6.3 5.6 Absolute Lymphocytes (1.2 - 3.4 /CUMM) 2.1 1.8 Absolute Monocytes (0.10 - 0.60 /CUMM) 0.9 H 0.7 H Absolute Eosinophils (0.0 - 0.7 /CUMM) 0.4 0.4 Absolute Basophils (0.0 - 0.2 /CUMM) 0 0 PUBS MCHC (33.0 - 37.0 G/DL) 32.4 L 34.0 /15 /14 0037 2200 Chemistry Sodium (137 - 145 mmol/L) 139 Potassium (3.5 - 5.1 mmol/L) 4.1 Chloride (98 - 107 mmol/L) 104 Carbon Dioxide (22 - 30 mmol/L) 26 Anion Gap (5 - 16) 8 BUN (7 - 17 mg/dL) 27 H Creatinine (0.5 - 1.0 mg/dL) 1.3 H Estimated GFR (>60 ml/min) 39 L BUN/Creatinine Ratio (7 - 25 %) 20.8 Glucose (65 - 99 mg/dL) 97 Lactic Acid (0.7 - 2.1 mmol/L) 0.8 0.9 Calcium (8.4 - 10.2 mg/dL) 9.5 Iron (37 - 170 ug/dL) 36 L TIBC (265 - 497 ug/dL) 252 L Ferritin (11.1 - 264 ng/mL) 37.2 Total Bilirubin (0.2 - 1.3 mg/dL) 0.4 AST (14 - 36 U/L) 39 H ALT (9 - 52 U/L) 33 Alkaline Phosphatase (<127 U/L) 142 H Troponin I (< 0.11 ng/ml) 0.02 Total Protein (6.3 - 8.2 g/dL) 5.7 L Albumin (3.5 - 5.0 g/dL) 3.3 L Globulin (1.9 - 4.2 gm/dL) 2.4 Albumin/Globulin Ratio (1.1 - 2.2 %) 1.4 Coagulation PT (9.4 - 12.5 SEC) 12.2 INR (0.90 - 1.19) 1.16 Hematology CBC w Diff NO MAN DIFF REQ WBC (4.8 - 10.8 /CUMM) 11.4 H RBC (4.20 - 5.40 /CUMM) 2.70 L Hgb (12.0 - 16.0 G/DL) 7.8 L Hct (37 - 47 %) 24.0 L MCV (81.0 - 99.0 FL) 88.8 MCH (27.0 - 31.0 PG) 28.8 RDW (11.5 - 14.5 %) 17.2 H Plt Count (130 - 400 /CUMM) 255 MPV (7.4 - 10.4 FL) 7.7 Gran % (42.2 - 75.2 %) 68.0 Lymphocytes % (20.5 - 51.1 %) 17.8 L Monocytes % (1.7 - 9.3 %) 7.9 Eosinophils % (0 - 5 %) 5.3 H Basophils % (0.0 - 2.0 %) 1.0 Absolute Granulocytes (1.4 - 6.5 /CUMM) 7.8 H Absolute Lymphocytes (1.2 - 3.4 /CUMM) 2.0 Absolute Monocytes (0.10 - 0.60 /CUMM) 0.9 H Absolute Eosinophils (0.0 - 0.7 /CUMM) 0.6 Absolute Basophils (0.0 - 0.2 /CUMM) 0.1 PUBS MCHC (33.0 - 37.0 G/DL) 32.4 L Imaging/Other Studies: 08/20/2016: EKG- Sinus arrhythmia @ 77, RBBB, LAHB, flipped T in II & F, PRWP. 08/20/2016: CT ABD & PELVIS ANGIOGRAM (per ER)- 1. Marked diverticulosis of the sigmoid colon with mild submucosal thickening but no significant edema of the pericolonic fat. A mild diverticulitis, however, is not excluded. 2. No pooling of contrast in the lumen to define intraluminal hemorrhage but there is a *prominent vessel in the area of the marked diverticulosis of the proximal sigmoid colon which is suspicious for site of gastrointestinal hemorrhage. 3. 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 Fat-containing umbilical hernia. 4. Atherosclerotic vascular wall calcifications of aorta and iliac arteries, without aneurysm. 5. Bilateral renal cyst. Mild cortical thinning of kidneys bilaterally. Uterine fibroids. 6. Markedly DJD. Levoscoliosis of L-spine. B/L ORIF hips. 08/07/2016: XRY-PORTABLE ABDOMEN- No evidence of intestinal obstruction. Diverticula. Tortuous calcified aorta. DJD. CCKY. B/L compression nails in hips. 08/21/2016: *Combined follow-up colonoscopy to the terminal ileum, plus EGD to the third portion of the duodenum- Impression: 1. Extensive pandiverticulosis coli, left-sided greater than right, from the sigmoid to the cecum. 2. Normal colonic mucosa to the terminal ileum (fair prep, which could have obscured a tiny polyp). 3. Mild internal hemorrhoids, without any active bleeding. 4. Reddish tinged liquid, washed and suctioned from the sigmoid; without any active bleed. 5. Small hernia, with Z line at 36 cm 6. Incidental non-bleeding sessile gastric polyps, proximal stomach, maximal diameter 1 cm, left intact. 7. Incidental duodenal diverticulum, second portion of the duodenum. [*No active lower or upper GI bleeding seen at present. Clinically, the patient probably had a self-limited diverticular bleed. Small bowel etiology less likely clinically].
--- NOTE | 2016-08-22 15:15 | Patient Discharge Instructions ---
Discharge Instructions General Discharge Information You were seen/treated for: GI bleed due to diverticulosis Special Instructions: #Follow up with Dr. Mas as needed for pillcam #Follow up with PCP in 1 week #Follow up with pulmonary doctor in 1 week. #Check hemoglobin level in 1 week #You should only take gabapentin 600 mg daily, instead of twice a day. Diet Continue normal diet: Yes Activity Full Activity/No Limits: Yes Acute Coronary Syndrome Inclusion Criteria At DC or during hospital stay patient has or had the following: ACS DIAGNOSIS No Discharge Core Measures Meds if any: Prescribed or Continued at Discharge Meds if any: NOT Prescribed or Continued at Discharge Congestive Heart Failure Inclusion Criteria At DC or during hospital stay patient has or had the following: CHF DIAGNOSIS No Discharge Core Measures Meds if any: Prescribed or Continued at Discharge Meds if any: NOT Prescribed or Continued at Discharge Cerebrovascular accident Inclusion Criteria At DC or during hospital stay patient has or had the following: CVA/TIA Diagnosis No Discharge Core Measures Meds if any: Prescribed or Continued at Discharge Meds if any: NOT Prescribed or Continued at Discharge Venous thromboembolism Inclusion Criteria VTE Diagnosis No VTE Type NONE VTE Confirmed by (Test) NONE Discharge Core Measures - Per Current guidelines, there needs to be overlap - treatment for the first 5 days of Warfarin therapy. - If discharged on Warfarin prior to 5 days of - overlap therapy, the patient will need to be - assessed for post discharge needs including - *Post discharge parental anticoagulation - *Warfarin and/or parental anticoagulation education - *Follow up date to check INR post discharge At least 5 days overlap therapy as Inpatient No Meds if any: Prescribed or Continued at Discharge Note: Overlap Therapy is Warfarin and Anticoagulant Meds if any: NOT Prescribed or Continued at Discharge
[2016-08-22 16:00] VITALS: BP 150/66
[2016-08-23 00:08] VITALS: BP 148/78
[2016-08-23 04:57] LABS: ABSOLUTE BASOPHIL COUNT 0 /CUMM (0.0-0.2); ABSOLUTE EOSINOPHIL COUNT 0.3 /CUMM (0.0-0.7); ABSOLUTE GRANULOCYTE CT 6.8 /CUMM (1.4-6.5); ABSOLUTE LYMPH COUNT 1.2 /CUMM (1.2-3.4); ABSOLUTE MONOCYTE COUNT 1.2 /CUMM (0.10-0.60); BASOPHIL % 0.3 % (0.0-2.0); EOSINOPHIL % 2.8 % (0-5); GRANULOCYTE % 71.6 % (42.2-75.2); MEAN CORPUSCULAR HGB 29.5 PG (27.0-31.0); MEAN CORPUSCULAR HGB CONC 32.8 G/DL (33.0-37.0); MEAN CORPUSCULAR VOLUME 89.9 FL (81.0-99.0); MEAN PLATELET VOLUME 7.8 FL (7.4-10.4); PLATELET COUNT 171 /CUMM (130-400); RBC DISTRIBUTION WIDTH 16.5 % (11.5-14.5); RED BLOOD CELL CT 2.78 /CUMM (4.20-5.40); WHITE BLOOD CELL COUNT 9.5 /CUMM (4.8-10.8)
--- NOTE | 2016-08-23 06:47 | NUR ---
PATIENT COMPLAIN OF ABDOMINAL PAIN ON THE LEFT QUADRANT, NON RADIATING, VITAL SIGNS ARE STABLE, PATIENT IS ALERT AND ORIENTED. PRN MORPHINE IV GIVEN PER eMAR.
--- NOTE | 2016-08-23 07:17 | Discharge Summary ---
Visit Information Visit Dates Admission Date: 08/20/16 Discharge Date: 08/26/16 Hospital Course Course Attending Physician: SRI GREEN MD Primary Care Physician: RADHA PLASCENCIA MD Hospital Course: Ms. 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 This lower abdominal pain began suddenly 1 day prior to admission and she had about 20 bloody BM prior to coming to ED, associated with lethargy and mild shortness of breath. In the ED: Vital signs showed T 96.2, HR 92, RR 18, BP 145/64 and O2 saturation of 95% on room air. CBC was significant for hb 7.3 (baseline 10-11), mild leukocytosis to 11.4 without bandemia (improved to 9.8) and BEP was significant for BUN/cre 27/1.3 (improved to 25/1). AST 39, alk phos 142, and INR 1.16. Hospital course: # BRBPR with acute blood loss anemia: CTA abdomen/pelvis showed marked diverticulosis of the sigmoid colon with mild submucosal thickening but no significant edema of the pericolonic fat. A mild diverticulitis howeverwas not excluded. Patient initially admitted to ICU for close monitoring of GI bleed. Endoscopy and colonoscopy revealed diverticulosis and polyps in the stomach that were not biopsied due to low likelihood of malignancy and risk of bleeding. She had no further bloody bowel movements. She was put on IV Ceftriaxone and IV flagyl. She received total 2 units of PRBCs to keep Hb >8. She was maintained on protonox , iron and IV fluids. Morphine for severe pain. No NSAIDs. Patient subsequently downgraded to GM. Daily CBC was monitored. Patient remained stable and her clinical condition improved. Instructed her to follow up with GI doctor Mya for possible pillcam if continues to have bleeding, and to present to ED if she has further GI bleed at home. Recommmended STR by PT. # History of COPD:Pt on home oxygen. Chest x-ray demonstrated hypoexpanded lungs with cardiomegaly and increased pulmonary vascular congestion suggestive of mild congestion and bibasilar haziness with questionable atelectasis. Maintaained on TRC with albuterol/ipratropium when necessary, supplemental oxygen, goal >92%, Symbicort. Patient decompensated on the floor after being transferred out of the unit. CXR showed congestion. She received IV Lasix with improvent in her symptoms. # Hypokalemia/# Hypomagnesiumia :Repleted as needed. # Rheumatoid arthritis :Continued home sulfasalazine and hydroxychloroquine # Severe depression/anxiety : Continued home meds Sertraline 50 mg daily, Trazodone 50 mg Although her home med is gabapentin 600 mg BID, due to her cr clearance, pharmacy recc 200-700 mg daily, so we will give 600 mg daily. # Rule out ACS: Patient denied chest pain or ischemic symptoms, however in setting of acute blood loss anemia and many medical comorbidities, ACS was ruled out with 3 negative Troponin/EKG # History of HTN: Continued carvedilol 6.25 bid, Enalapril 10 mg daily ,Lasix 20 mg daily , HCTZ 25 mg daily # History of iron deficiency anemia: Continue ferrous sulfate daily # Continue home meds: Latanoprost eye drop,Naphthzolin eye drop Mild to severe pain pathway Diet: heart healthy DVTP: ALPS, no pharm due to BRBPR DNR/DNI Complications: Patient decompensated on the floor after being transferred out of the unit. CXR showed congestion. She received IV Lasix with improvent in her symptoms. Allergies: Coded Allergies: propoxyphene (08/11/15) Significant Procedures: Gastroenterology Procedure Date of Last Colonoscopy: 2011 in [place], [place] by Dr. Aggarwal. Procedure Date: 08/21/16 GI Procedure(s): Combined follow-up colonoscopy to the terminal ileum, plus EGD to the third portion of the duodenum. 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 Meds Received: O2- 10L NRB mask & MAC, as per Dr. Trent, of [place] anesthesia. Patient's Tolerance: good Complications: None Extent Reached: TI/D3 Procedure: Combined follow-up colonoscopy to the terminal ileum, plus EGD to the third portion of the duodenum, were performed with the Olympus high-definition videoscopes from above and below, after obtaining informed consent from the patient for each procedure prior to IV sedation, with the court monitor and pulse oximeter, after only 1/3 of a gallon of GoLYTELY (per patient), by the bedside in the [place] ICU, room #110, with the assistance of Dr. Trent, of [facility]. Documenting photographs were obtained from above and below, and placed inside the patient's chart. Initially, follow up colonoscopy to the terminal ileum, was performed with the Olympus high-definition pediaric videocolonoscope, after obtaining informed consent from the patient, with the court monitor and pulse oximeter, after only 1/3 of a gallon of GoLytely (per patient), with the assistance of Dr. Trent, of [place] anesthes[facility]. Despite this, the prep was actually fair. Having stated that, a small polyp < 5 mm been obscured by the prep, but certainly no large lesions were seen. The patient was in the left lateral decubitus position throughout the procedure. Direct views of the rectum failed to reveal any external hemorrhoids, fissures, or perianal disease. Digital rectal exam was unremarkable, without any masses. Sphincter tone was normal. Retroflexion in the rectum failed to reveal any gross proctitis, rectal ulcers or rectal lesions. Stool was washed and suctioned clear from the rectum. There were mild internal hemorrhoids on retroflexion, without any active bleeding. The colonic mucosa was carefully inspected, both upon insertion and upon withdrawal of the colonoscope. Withdrawal time was certainly adequate. There were extensive pandiverticulosis coli, sigmoid greater than right, from the sigmoid colon up to and including the cecum. The cecum, base of the appendix, and ileocecal valve were all identified. The last 10 cm of the terminal ileum were entered and appeared normal. Confirmatory photographs were obtained. The colonic mucosa appeared intact and within normal limits to the terminal ileum, without any recurrent polyps, lesions, gross colitis, ileitis, or angiodysplasias. Again, a small polyp could have been obscured by the fair prep. No active lower GI bleeding was seen, although there was scant reddish tinged liquid in the sigmoid, which resolved with water wash. The patient tolerated the procedure well. As no active lower GI bleeding was seen to the terminal ileum (*although clinical suspicion for diverticular bleed exists), after completing the follow- up colonoscopy to the terminal ileum, upper endoscopy to the third portion of the duodenum was performed with the Olympus high definition videoendoscope, after previously obtaining informed consent from the patient, with the court monitor and pulse oximeter, with the assistance of Dr. Trent, of [place] [facility]. The patient's false partials were removed preoperatively. A mouthpiece was placed in the usual fashion to protect the patient's residule teeth. The patient was placed in the left lateral decubitus position and sedated by [place] anest[facility]. At this point, the endoscope was advanced through the fenestrated hole in the NRB mask, into the mouth, then into the esophagus, using direct visualization technique. The vocal cords appeared normal. The esophageal mucosa appeared normal. There were no esophageal rings, webs, lesions, strictures, or ulcers. There was no monilia or vesicles. There was no esophageal ribbing. The Z line was well demarcated at 36 cm. There was a small hiatal hernia pouch, without any [place] erosions. No significant esophageal inflammation was seen. There were no ectopic islands, nor gross Rich's esophagus. There were no esophageal or gastric varices, nor any Evelyn Aggarwal tear. The perry of the stomach distended normally with air insufflation. Direct and retroflexed views of the stomach were performed. There was nothing endoscopically to suggest gastroparesis or portal gastropathy. Scattered throughout the proximal stomach were multiple sessile gastric polyps, maximum diameter 1 cm, in the gastric cardia, fundus, lesser curvature, and posterior wall of the gastric body, which were left intact without biopsies, so as not to confuse the issue. The mucosa of the proximal stomach was not atrophic -appearing. Aside from the scattered gastric polyps, the intervening mucosa of the gastric cardia, fundus, lesser curvature, incisura, & body appeared normal. The mucosa of the gastric antrum appeared normal, without any gastric ulcers or gastric lesions. The pylorus was patent, without any gastric outlet obstruction or channel ulcer. The duodenal bulb, duodenal sweep and third portion of the duodenum appeared normal, including the ampulla, without any duodenal ulcers, distal ulcerations, or angiodysplasias. An incidental duodenal diverticulum was seen in the second portion of the duodenum. Bile was seen in the duodenum. The folds of the second and third portions of the duodenum were normal in caliber, without any flattening, nodularity, scalloping, or mosaic pattern. No active upper GI bleeding was seen, either. The patient tolerated both procedures well. Impression: 1. Extensive pandiverticulosis coli, left-sided greater than right, from the sigmoid to the cecum. 2. Normal colonic mucosa to the terminal ileum (fair prep, which could have obscured a tiny polyp). 3. Mild internal hemorrhoids, without any active bleeding. 4. Reddish tinged liquid, washed and suctioned from the sigmoid; without any active bleed. 5. Small hernia, with Z line at 36 cm 6. Incidental non-bleeding sessile gastric polyps, proximal stomach, maximal diameter 1 cm, left intact. 7. Incidental duodenal diverticulum, second portion of the duodenum. [*No active lower or upper GI bleeding seen at present. Clinically, the patient probably had a self-limited diverticular bleed. Small bowel etiology less likely clinically]. Recommendations: Maintain in ICU overnight. Clears po as tolerated. Check CBC Q12h. Keep Hgb > 7 (no documented ASHD). 2 large-bore IVs. Strict I's and O's. Supplemental oxygen as needed. Continue PPI for GERD. T&C 4u PRBC. Keep Hgb > 7 (no documented ASHD). Consider surgical consultation. Consideration for consulting IR for potential angiography with embolization, if patient actively rebleeds. Consider holding Ceftriaxone and Flagyl. No NSAIDs. Consider imaging studies of left hip/left iliac crest, per medical team (? referred pain). Based on patient 's advanced age, I do not feel there is any role for further surveillance colonoscopies, regarding the history of colon adenomas.*Consideration for outpatient PillCam. The above was discussed with the medical house staff, the patient, & the patient's niece, Tequila Mercer. Further recommendations to follow, depending on clinical course. Follow-up Colonscopy Screening no need for surveillance with advanced age Pertinent Lab Results: EXAM TYPE: RAD - XRY-HIP 2-3 VIEWS, LEFT EXAMINATION: XR HIP, LEFT CLINICAL INFORMATION: Pain in left abdomen. Possible referred pain. COMPARISON: [facility] from 08/21/2016 TECHNIQUE: Two views of the left hip. FINDINGS: The visualized left pelvic bones are intact. The left femoral head is well-positioned within the intact acetabulum. The articular cartilage space of the left hip is maintained. There is an old, healed intertrochanteric fracture of the left femur. The intramedullary fixation nail, interlocking screw and dynamic femoral neck screw are in satisfactory position. No acute osseous abnormalities. IMPRESSION: Old, healed intertrochanteric fracture of the left femur with intact fixation hardware in place. Disposition Summary Disposition Principal Diagnosis: Diverticular bleed Additional Diagnosis: # Acute blood loss anemia [id number] PRBC # Hypokalemia # Hypomagnesiumia # Sigmoid diverrticulitis # Hx of HTN # Severe depression/anxiety # Rheumatoid arthritis Discharge Disposition: SNF Discharge Instructions General Discharge Information Code Status: Do Not Resucitate/Intubat Patient's Diet: Heart healthy Patient's Activity: As tolerated Follow-Up Instructions/Appts: Follow up with Dr. Mas as needed for pillcam Follow up with PCP in 1 week Check hemoglobin level in 1 week Follow up renal functions You should only take gabapentin 600 mg daily, instead of twice a day. Medications at Discharge Discharge Medications: Stop taking the following medications: Gabapentin (Neurontin) 600 MG TABLET ORAL TWICE DAILY Continue taking these medications: Fluticasone/Salmeterol (Advair 250-50 Diskus) 1 EACH BLST.W.DEV 1 Puff Inhale through mouth TWICE DAILY Comments: NOT GIVEN IN HOSPITAL Enalapril Maleate (Enalapril Maleate) 10 MG TABLET 1 Tablet ORAL DAILY Comments: Last Taken: 08/26/16 Time: 9:30 am (lisinopirl given) Esomeprazole (Nexium) 40 MG CAPSULE. 1 Capsule ORAL DAILY Comments: NOT GIVEN IN HOSPITAL Ferrous Sulfate (Ferrous Sulfate) 325 MG TABLET 1 Tablet ORAL DAILY Comments: Last Taken: 08/26/16 Time: 9:30 AM Folic Acid (Folic Acid) 1 MG TABLET 1 Tablet ORAL DAILY Comments: Last Taken: 08/26/16 Time: 9:30 AM Hydrochlorothiazide (Hydrochlorothiazide) 25 MG TABLET 1 Tablet ORAL DAILY Comments: Last Taken: 08/26/16 Time: 9:30 AM Hydroxychloroquine Sulfate (Hydroxychloroquine Sulfate) 200 MG TABLET 1 Tablet ORAL TWICE DAILY Comments: Last Taken: 08/26/16 Time: 9:30 AM Mometasone Furoate (Nasonex) 17 GM SPRAY.PUMP 1-2 [place] Both sides of nose DAILY Comments: NOT GIVEN IN HOSPITAL Olopatadine HCl (Pataday) 2.5 ML DROPS 1 Drop In the eye DAILY as needed for ALLERGY Comments: NOT GIVEN IN HOSPITAL Albuterol Sulfate (Proair Hfa) 8.5 GM HFA.AER.AD 2 Puff Inhale through mouth EVERY 4-6 HOURS NEEDED as needed for COPD Comments: Last Taken: 08/26/16 Time: 9:30 AM Sertraline HCl (Sertraline HCl) 50 MG TABLET 1 Tablet ORAL DAILY Comments: Last Taken: 08/26/16 Time: 9:30 AM Travoprost (Travatan Z) 5 ML DROPS 1 Drop In the eye Every night Comments: Last Taken: 08/25/16 Time: 9:30 PM Trazodone HCl (Trazodone HCl) 100 MG TABLET 0.5 Tablet ORAL Every night Comments: NOT GIVEN IN HOSPITAL Tramadol HCl (Tramadol HCl) 50 MG TABLET 1 Tablet ORAL TWICE DAILY as needed for PAIN Qty = 60 Comments: Last Taken: 08/26/16 Time: 12:30 PM Sulfasalazine (Sulfazine EC) 500 MG TABLET.DR 1 Tablet ORAL TWICE DAILY Qty = 180 Comments: Last Taken: 08/26/16 Time: 9:30 AM Carvedilol (Coreg) 6.25 MG TABLET 1 Tablet ORAL TWICE DAILY Comments: Last Taken: 08/26/16 Time: 9:30 AM Cholecalciferol (Vitamin D3) (Vitamin D) 1,000 UNIT CAPSULE 5 Tablet ORAL DAILY Comments: NOT GIVEN IN HOSPITAL Cyanocobalamin (Vitamin B-12) (Vitamin B-12) 100 MCG TABLET 1 Tablet ORAL DAILY Comments: NOT GIVEN IN HOSPITAL Diphenoxylate HCl/Atropine (Lomotil 2.5-0.025 MG Tablet) 2.5 MG-0.025 MG TABLET 1 Tablet ORAL DAILY as needed for DIARRHA Comments: NOT GIVEN IN HOSPITAL Docusate Sodium (Colace) 100 MG CAPSULE 1 Capsule ORAL TWICE DAILY Comments: NOT GIVEN IN HOSPITAL Polyethylene Glycol 3350 (Miralax) 17 GRAM POWD.PACK 1 Packet ORAL DAILY Instructions: dissolve in water Comments: NOT GIVEN IN HOSPITAL Diclofenac Sodium (Voltaren) 1 % GEL..GRAM. 1 Gram On the skin 4 TIMES A DAY Instructions: apply to affected area(s) Comments: NOT GIVEN IN HOSPITAL Furosemide (Lasix) 20 MG TABLET 1 Tablet ORAL DAILY Comments: Last Taken: 08/26/16 Time: 9:30 AM Start taking the following new medications: Gabapentin (Gabapentin) 600 MG TABLET 1 Tablet ORAL DAILY Qty = 30 No Refills Comments: Last Taken: 08/26/16 Time: 9:30 AM Copies To: MYA MARINELLI,RACHEAL [place]; CAYDEN MARINELLI,WALDEMAR; TEMO MARINELLI,RADHA Attending MD Review Statement Documenting Attending: RAJIV BUCKNER MD Other Findings: The patient was seen and discussed with house staff. Agree with plan of care upon discharge.
--- NOTE | 2016-08-23 07:17 | PN- Housestaff ---
Subjective Follow-up For: lower gi bleed persistent left sided abdominal pain Tele-Events Since Last Visit: not on quality assurance monitor body Subjective: Pt seen this morning, very anxious and frustrated about her hearing aid not functioning well. Contineus to endorse left sided abdominal pain that radiates to the back that has been chronic. Will get XRAY of left hip to evaluate for arthritis. Her hb 8.2 this morning. Explained to her the likely cause of her bleed is diverticulosis. Instructed her to follow up with Dr. Mas for possible pillcam if continues to have bleeding. I have told the pt that she should only be one gabapentin once a day rather than twice a day given her kidney functions. Review of Systems Constitutional: Reports: see HPI. Objective Last 24 Hrs of Vital Signs/I&O Vital Signs Date Time Temp Pulse Resp B/P Pulse O2 O2 Flow FiO2 Ox Delivery Rate 08/23 1001 84 156/68 08/23 0905 95 Nasal 2.0L Cannula 08/23 0008 98.5 82 18 148/78 97 Nasal 2.0L Cannula 08/23 0000 98 Nasal 2.0L Cannula 08/22 2226 98.8 76 21 157/82 08/22 1939 99 Nasal 2.0L Cannula 08/22 1708 94 Nasal 2.0L Cannula 08/22 1600 97 Nasal 2.0L Cannula 08/22 1600 99.0 76 22 150/66 97 Nasal 2.0L Cannula Intake & Output 08/23 1600 08/23 0800 08/23 0000 Intake Total 510 824 Output Total 200 Balance 510 624 Intake, IV 360 574 Intake, Oral 150 250 Number 1 Bowel Movements Output, Urine 200 Physical Exam General Appearance: Alert, Oriented X3, Cooperative, No Acute Distress Skin: No Significant Lesion HEENT: Atraumatic, PERRLA Neck: Supple Cardiovascular: Regular Rate, Normal S1, Normal S2 Lungs: Clear to Auscultation, Normal Air Movement Abdomen: Normal Bowel Sounds, Soft, No Tenderness Extremities: No Edema Current Medications: Current Medications Sig/Raza Start time Last Medication Dose Route Stop Time Status Admin Acetaminophen 650 MG Q6P PRN 08/21 0045 AC PO Albuterol Sulfate 3 ML Q6PRN PRN 08/21 1145 AC 08/22 INH 1938 Budesonide/ 2 PUF BID 08/21 1000 AC 08/23 Formoterol Fumarate INH 1010 Carvedilol 6.25 MG BID 08/21 2200 AC 08/23 PO 1001 Ceftriaxone Sodium 1,000 MG Q24H 08/20 2345 AC 08/22 IV 2225 Ferrous Sulfate 325 MG DAILY 08/21 1000 AC 08/23 PO 1001 Folic Acid 1 MG DAILY 08/21 1000 AC 08/23 PO 1001 Furosemide 20 MG DAILY 08/21 1619 AC 08/23 PO 1001 Gabapentin 600 MG DAILY 08/21 1145 AC 08/23 PO 1001 Hydrochlorothiazide 25 MG DAILY 08/21 1619 AC 08/23 PO 1001 Hydroxychloroquine 200 MG BID 08/21 1000 AC 08/23 Sulfate PO 1001 Latanoprost 1 GTT AT BEDTIME 08/21 2200 AC 08/22 OPH 2224 Lisinopril 10 MG DAILY 08/21 1630 AC 08/23 PO 1001 Magnesium Oxide 400 MG BID 08/23 1040 AC PO 08/24 2201 Magnesium Oxide 400 MG BID 08/22 1000 DC 08/22 PO 08/22 2201 2225 Metronidazole 500 MG Q8H 08/21 1800 AC 08/23 N/A 1 UNIT IV 1004 Morphine Sulfate 2 MG Q4P PRN 08/21 0045 AC 08/23 IV 0434 Naphazoline HCl/ 1 GTT DAILY NEEDED PRN 08/21 0015 AC Pheniramine Maleate OPH Pantoprazole Sodium 40 MG DAILY 08/21 0030 AC 08/23 IV 1001 Potassium Chloride 40 MEQ ONCE ONE 08/23 1045 DC PO 08/23 1046 Sertraline HCl 50 MG DAILY 08/21 1140 AC 08/23 PO 1001 Sodium Chloride 1,000 ML Q6H 08/20 2345 AC 08/23 IV 0458 Sulfasalazine 500 MG BID 08/21 1000 AC 08/23 PO 1000 Tramadol HCl 50 MG BID PRN 08/21 0015 AC PO Trazodone HCl 50 MG AT BEDTIME 08/21 2200 AC 08/22 PO 2225 Last 24 Hrs of Lab/Herb Results Last 24 Hrs of Labs/Mics: Laboratory Tests 08/23/16 0410: Anion Gap 8, Estimated GFR 59 L, BUN/Creatinine Ratio 11.1, Magnesium 1.5 L, CBC w Diff NO MAN DIFF REQ, RBC 2.78 L, MCV 89.9, MCH 29.5, RDW 16.5 H, MPV 7.8, Gran % 71.6, Lymphocytes % 12.8 L, Monocytes % 12.5 H, Eosinophils % 2.8, Basophils % 0.3, Absolute Granulocytes 6.8 H, Absolute Lymphocytes 1.2, Absolute Monocytes 1.2 H, Absolute Eosinophils 0.3, Absolute Basophils 0, PUBS MCHC 32.8 L Assessment/Plan Assessment: Ms. 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 This lower abdominal pain began suddenly 1 day prior to admission and she had about 20 bloody BM prior to coming to ED, associated with lethargy and mild shortness of breath. In the ED: Vital signs showed T 96.2, HR 92, RR 18, BP 145/64 and O2 saturation of 95% on room air. CBC was significant for hb 7.3 (baseline 10-11), mild leukocytosis to 11.4 without bandemia (improved to 9.8) and BEP was significant for BUN/cre 27/1.3 (improved to 25/1). AST 39, alk phos 142, and INR 1.16. Patient initially admitted to ICU for close monitoring of GI bleed. Endoscopy and colonoscopy revealed diverticulosis and polyps in the stomach that were not biopsied due to low likelihood of malignancy and risk of bleeding. She had no further bloody bowel movements. She received total 2 units of PRBCs with hb now >8. Patient subsequently downgraded to . Instructed her to follow up with Dr. Mas for possible pillcam if continues to have bleeding, and to present to ED if she has further GI bleed at home. CT scan also showed possible sigmoid diverticulitis for which ceftriaxone and flagyl given for 3 days. She continues to endorse left sided abdominal pain (that has been chronic), most likely referred pain from her arthritis, nontender to palpation. Xray of left hip obtained. Problem list: # BRBPR with acute blood loss anemia [id number] PRBC, most likely due to bleeding diverticulosis (resolved) # Hypokalemia (repleted) # Hypomagnesiumia (still low) # Sigmoid diverrticulitis?, sp 3 days of abx, now off abx # Hx of HTN (antihypertensives have been restarted) # Severe depression/anxiety # Rheumatoid arthritis # BRBPR with acute blood loss anemia, most likely due to bleeding diverticulosis # Sigmoid diverticulitis? unlikely because the diverticulitis usually does not bleed, suspect the CT findings could be chronic (abdominal pain is referred pain from arthritic hip?) - CTA abdomen/pelvis showed marked diverticulosis of the sigmoid colon with mild submucosal thickening but no significant edema of the pericolonic fat. A mild diverticulitis however is not excluded. No pooling of contrast in the lumen to define intraluminal hemorrhage but there is a prominent vessel in the area of the marked diverticulosis of the proximal sigmoid colon which is suspicious for site of gastrointestinal hemorrhage. * Stable for transfer to * Hb 7.3, sp 2 units PRBC, keep hb>8 * Diet has been advanced. Tolerating diet well, can discontinue IVF * Consider CTA and contact IR for embolization if pt has large amount of bloody stool and seems to be actively bleeding * IV flagyl and ceftriaxone started as CTA showed inflammatory changes of the bowel and white count slightly elevated on admission, given for 3 days. * Watch off abx * Morphine for severe pain. No NSAIDs. * IV protonix 40 mg changed to omeprazole 40 mg starting 08/24 # Hypokalemia - K was 3.2, repleted with 60 kdur, repeat 3.9, given another 40 kdur * Follow up tomorrow am lab # Hypomagnesiumia - mag 1.4, repleted with 400X2 mag ox, still low at 1.5, ordered 4 more doses of mag ox * F/U mag tomorrow # Rheumatoid arthritis * Continue home sulfasalazine and hydroxychloroquine * Follow up left hip xray # Severe depression/anxiety * Consider psych consult * Continue home meds Sertraline 50 mg daily, Trazodone 50 mg QPM * Although her home med is gabapentin 600 mg BID, due to her cr clearance, pharmacy recc 200-700 mg daily, so we will give 600 mg daily. I have told the pt that she should only be one gabapentin once a day rather than twice a day given her kidney functions. # Rule out ACS - Patient denies chest pain or ischemic symptoms, however in setting of acute blood loss anemia and many medical comorbidities, ACS needs to be ruled out - Troponin/EKG x 3 negative # History of HTN * Carvedilol 6.25 bid, Enalapril 10 mg daily ,Lasix 20 mg daily , HCTZ 25 mg daily has been resumed # COPD not on home O2 - Patient currently stable on room air * Monitor oxygen saturation and provide supplemental O2/TRC nebs as needed * Continue symbicort * Wean Os as tolerated # History of iron deficiency anemia * Continue ferrous sulfate daily # Continue home meds Latanoprost eye drop Naphthzolin eye drop # Consider restarting home meds currently on hold Tramadol Albuterol Advair (fluticasone/salmeterol) Nasonex Olapatadin eye drop Vit D3 Vit B 12 Voltaren Mild to severe pain pathway Diet: heart healthy DVTP: ALPS, no pharm due to BRBPR DNR/DNI Labs: bep and mag for low k and mag cbc for acute blood loss anemia Consults: GI (signed off) Problem List: 1. Acute blood loss anemia 2. Rib pain on left side Pain Ratin Pain Location: left sided abdomen Pain Goal: Pain 4 or less Pain Plan: morphine Tomorrow's Labs & Rationales: bep and mag for low k and mag cbc for acute blood loss anemia
[2016-08-23 08:00] VITALS: BP 156/68
--- NOTE | 2016-08-23 09:42 | PN- Pulmonary ---
Subjective HPI/Critical Care Issues: The patient is awake and appears comfortable. She states that she feels unwell but is not specific about this. There is no report of further bleeding. The patient is currently on room air with adequate oxygen saturations in the mid 90s. She denies any nausea, vomiting, diarrhea or abdominal pain. The patient did receive morphine overnight for abdominal pain. She is very anxious and crying intermittently. Objective Current Medications: Current Medications Sig/Raza Start time Last Medication Dose Route Stop Time Status Admin Acetaminophen 650 MG Q6P PRN 08/21 0045 AC PO Albuterol Sulfate 3 ML Q6PRN PRN 08/21 1145 AC 08/22 INH 1938 Budesonide/ 2 PUF BID 08/21 1000 AC 08/22 Formoterol Fumarate INH 2231 Carvedilol 6.25 MG BID 08/21 2200 AC 08/22 PO 2226 Ceftriaxone Sodium 1,000 MG Q24H 08/20 2345 AC 08/22 IV 2225 Ferrous Sulfate 325 MG DAILY 08/21 1000 AC 08/22 PO 1024 Folic Acid 1 MG DAILY 08/21 1000 AC 08/22 PO 1024 Furosemide 20 MG DAILY 08/21 1619 AC 08/22 PO 1024 Gabapentin 600 MG DAILY 08/21 1145 AC 08/22 PO 1025 Hydrochlorothiazide 25 MG DAILY 08/21 1619 AC 08/22 PO 1024 Hydroxychloroquine 200 MG BID 08/21 1000 AC 08/22 Sulfate PO 2225 Latanoprost 1 GTT AT BEDTIME 08/21 2200 AC 08/22 OPH 2224 Lisinopril 10 MG DAILY 08/21 1630 AC 08/22 PO 1024 Magnesium Oxide 400 MG BID 08/22 1000 DC 08/22 PO 08/22 2201 2225 Metronidazole 500 MG Q8H 08/21 1800 AC 08/23 N/A 1 UNIT IV 0109 Morphine Sulfate 2 MG Q4P PRN 08/21 0045 AC 08/23 IV 0434 Naphazoline HCl/ 1 GTT DAILY NEEDED PRN 08/21 0015 AC Pheniramine Maleate OPH Pantoprazole Sodium 40 MG DAILY 08/21 0030 AC 08/22 IV 1025 Sertraline HCl 50 MG DAILY 08/21 1140 AC 08/22 PO 1024 Sodium Chloride 1,000 ML Q6H 08/20 2345 AC 08/23 IV 0458 Sulfasalazine 500 MG BID 08/21 1000 AC 08/22 PO 2225 Tramadol HCl 50 MG BID PRN 08/21 0015 AC PO Trazodone HCl 50 MG AT BEDTIME 08/21 2200 AC 08/22 PO 2225 Vital Signs & I&O Last 24 Hrs of Vitals and I&O: Vital Signs Date Time Temp Pulse Resp B/P Pulse O2 O2 Flow FiO2 Ox Delivery Rate 08/23 0905 95 Nasal 2.0L Cannula 08/23 0008 98.5 82 18 148/78 97 Nasal 2.0L Cannula 08/23 0000 98 Nasal 2.0L Cannula 08/22 2226 98.8 76 21 157/82 08/22 1939 99 Nasal 2.0L Cannula 08/22 1708 94 Nasal 2.0L Cannula 08/22 1600 97 Nasal 2.0L Cannula 08/22 1600 99.0 76 22 150/66 97 Nasal 2.0L Cannula 08/22 1024 99.1 76 24 131/74 08/22 1024 99.1 76 24 131/74 08/22 1000 95 Nasal 2.0L Cannula Intake & Output 08/23 1600 08/23 0800 08/23 0000 Intake Total 510 824 Output Total 200 Balance 510 624 Intake, IV 360 574 Intake, Oral 150 250 Number 1 Bowel Movements Output, Urine 200 Exam General Appearance: no apparent distress, awake, anxious Head: atraumatic, normal appearance Neck: supple Respiratory: normal breath sounds, no respiratory distress Cardiovascular: edema Abdomen: normal bowel sounds, soft, non-tender Extremities: no edema Skin: intact, normal color, warm/dry Results Last 24 Hrs of Lab Results: Laboratory Tests 08/23/16 0410: Anion Gap 8, Estimated GFR 59 L, BUN/Creatinine Ratio 11.1, Magnesium 1.5 L, CBC w Diff NO MAN DIFF REQ, RBC 2.78 L, MCV 89.9, MCH 29.5, RDW 16.5 H, MPV 7.8, Gran % 71.6, Lymphocytes % 12.8 L, Monocytes % 12.5 H, Eosinophils % 2.8, Basophils % 0.3, Absolute Granulocytes 6.8 H, Absolute Lymphocytes 1.2, Absolute Monocytes 1.2 H, Absolute Eosinophils 0.3, Absolute Basophils 0, PUBS MCHC 32.8 L 08/22/16 1045: Anion Gap 5, Estimated GFR 59 L, Glucose 88, Calcium 8.3 L, Phosphorus 3.0, Magnesium 1.5 L, Total Bilirubin 0.4, AST 35, ALT 36, Albumin 2.7 L, CBC w Diff NO MAN DIFF REQ, RBC 2.90 L, MCV 89.3, MCH 29.2, RDW 16.3 H, MPV 7.6, Gran % 72.4, Lymphocytes % 14.2 L, Monocytes % 9.8 H, Eosinophils % 3.3, Basophils % 0.3, Absolute Granulocytes 7.4 H, Absolute Lymphocytes 1.4, Absolute Monocytes 1.0 H, Absolute Eosinophils 0.3, Absolute Basophils 0, PUBS MCHC 32.7 L Impression/Plan Impression/Plan Impression/Plan: 1. Acute blood loss anemia, without active bleeding. The patient's hemoglobin has decreased however she does not appear to be actively bleeding. Colonoscopy showed extensive pandiverticulosis coli, left-sided greater than right from the sigmoid to the cecum. There were mild internal hemorrhoids noted as well. 2. Rheumatoid arthritis. 3. Hypertension. 4. Severe depression/anxiety. 5. COPD - on Symbicort and nebs. 6. Chronic pain. Recommendations: * Will continue to follow GI recommendations. Appreciate input. * Advance diet if okay with GI. * Monitor off antibiotics. * Check an x-ray of the left hip/iliac crest to evaluate for referred pain. * Lesion may benefit from an outpatient PillCam. * Continue nebs/TRC. * Continue Symbicort. * Continue home antihypertensive regimen. * DVT prophylaxis with Alps. No heparin due to bleeding. * Continue all supportive care. * Increase activity, out of bed to chair.
[2016-08-23] MEDS ORDERED: GABAPENTIN600 M1 PO (09:59)
[2016-08-23 13:17] VITALS: BP 129/98
--- NOTE | 2016-08-23 13:37 | RADIOLOGY REPORT ---
EXAMINATION: XR HIP, LEFT CLINICAL INFORMATION: Pain in left abdomen. Possible referred pain. COMPARISON: KUB from 08/21/2016 TECHNIQUE: Two views of the left hip. FINDINGS: The visualized left pelvic bones are intact. The left femoral head is well-positioned within the intact acetabulum. The articular cartilage space of the left hip is maintained. There is an old, healed intertrochanteric fracture of the left femur. The intramedullary fixation nail, interlocking screw and dynamic femoral neck screw are in satisfactory position. No acute osseous abnormalities. IMPRESSION: Old, healed intertrochanteric fracture of the left femur with intact fixation hardware in place.
[2016-08-23 23:17] VITALS: BP 160/80
[2016-08-24 07:48] VITALS: BP 144/70
[2016-08-24 08:12] LABS: ABSOLUTE BASOPHIL COUNT 0 /CUMM (0.0-0.2); ABSOLUTE EOSINOPHIL COUNT 0.3 /CUMM (0.0-0.7); ABSOLUTE GRANULOCYTE CT 6.3 /CUMM (1.4-6.5); ABSOLUTE LYMPH COUNT 1.1 /CUMM (1.2-3.4); ABSOLUTE MONOCYTE COUNT 1.2 /CUMM (0.10-0.60); BASOPHIL % 0.3 % (0.0-2.0); EOSINOPHIL % 3.5 % (0-5); GRANULOCYTE % 70.9 % (42.2-75.2); HEMATOCRIT 24.2 % (37-47); MEAN CORPUSCULAR HGB 29.5 PG (27.0-31.0); MEAN CORPUSCULAR HGB CONC 32.6 G/DL (33.0-37.0); MEAN CORPUSCULAR VOLUME 90.5 FL (81.0-99.0); MEAN PLATELET VOLUME 7.7 FL (7.4-10.4); PLATELET COUNT 177 /CUMM (130-400); RBC DISTRIBUTION WIDTH 16.2 % (11.5-14.5); RED BLOOD CELL CT 2.68 /CUMM (4.20-5.40); WHITE BLOOD CELL COUNT 8.9 /CUMM (4.8-10.8)
--- NOTE | 2016-08-24 08:29 | PN- Housestaff ---
LYNDSEY MARINELLI,NANCY 08/24/16 0828: Subjective Follow-up For: Bright red blood per rectum Acute blood loss anemia Diarrhea Respiratory distress Subjective: Patient seen and examined. She is seen sitting in her chair at bedside in mild respiratory distress. She appears uncomfortable. She reports having several episodes of diarrhea since she came in and states that whenever she eats food she almost instantly has to pass her bowels. Otherwise she states that since admission she has had worsening shortness of breath and cough. Additionally she admits to feeling feverish overnight. Otherwise she denies any headache, chills, chest pain, palpitations, nausea, vomiting, urinary frequency/urgency/burning/pain. No overnight events reported. Review of Systems Constitutional: Reports: see HPI. Objective Last 24 Hrs of Vital Signs/I&O Vital Signs Date Time Temp Pulse Resp B/P Pulse O2 O2 Flow FiO2 Ox Delivery Rate 08/24 0748 99.2 81 20 144/70 98 Nasal 2.0L Cannula 08/24 0001 99.1 08/24 0000 Nasal 2.0L Cannula 08/23 2355 99.1 08/23 2317 100.7 81 20 160/80 98 Room Air 08/23 2213 97 Nasal 2.0L Cannula 08/23 2116 100.7 08/23 2115 81 160/80 08/23 1600 100 Nasal 2.0L Cannula 08/23 1504 Nasal 2.0L Cannula 08/23 1317 98.6 79 20 129/98 100 Nasal 2.0L Cannula 08/23 1240 95 Nasal 2.0L Cannula Intake & Output 08/24 1600 08/24 0800 08/24 0000 Intake Total 240 600 Output Total Balance 240 600 Intake, Oral 240 600 Number 1 Bowel Movements Physical Exam General Appearance: Alert, Oriented X3, Cooperative, Mild Distress Other Physical Findings: General -well-developed, well-nourished obese woman in mild respiratory distress HEENT - NCAT, PERRL, EOMI, anicteric sclera CVS - S1, S2 w/o m/g/r Resp -moderate rhonchi with scant wheezing and crackles GI - Soft, nontender, nondistended, bowel sounds intact Neuro - Awake and alert, CN II - XII grossly inact Ext - normal pulses, no cyanosis/clubbing/edema Current Medications: Current Medications Sig/Raza Start time Last Medication Dose Route Stop Time Status Admin Acetaminophen 650 MG .STK-MED ONE 08/23 2110 DC PO 08/23 211 Acetaminophen 650 MG Q6P PRN 08/21 0045 AC 08/23 PO 2116 Albuterol Sulfate 3 ML Q6PRN PRN 08/21 1145 AC 08/22 INH 1938 Budesonide/ 2 PUF BID 08/21 1000 AC 08/23 Formoterol Fumarate INH 211 Carvedilol 6.25 MG BID 08/21 2200 AC 08/23 PO 2115 Ceftriaxone Sodium 1,000 MG Q24H 08/20 2345 DC 08/22 IV 2225 Ferrous Sulfate 325 MG DAILY 08/21 1000 AC 08/23 PO 1001 Folic Acid 1 MG DAILY 08/21 1000 AC 08/23 PO 1001 Furosemide 20 MG DAILY 08/21 1619 AC 08/23 PO 1001 Gabapentin 600 MG DAILY 08/21 1145 AC 08/23 PO 1001 Hydrochlorothiazide 25 MG DAILY 08/21 1619 AC 08/23 PO 1001 Hydroxychloroquine 200 MG BID 08/21 1000 AC 08/23 Sulfate PO 211 Latanoprost 1 GTT AT BEDTIME 08/21 2200 AC 08/23 OPH 2116 Lisinopril 10 MG DAILY 08/21 1630 AC 08/23 PO 1001 Magnesium Oxide 400 MG BID 08/23 1040 AC 08/23 PO 08/24 2201 2116 Metronidazole 500 MG Q8H 08/21 1800 DC 08/23 N/A 1 UNIT IV 1004 Morphine Sulfate 2 MG Q4P PRN 08/21 0045 AC 08/23 IV 1817 Naphazoline HCl/ 1 GTT DAILY NEEDED PRN 08/21 0015 AC Pheniramine Maleate OPH Omeprazole 40 MG DAILY AC 08/24 0700 AC 08/24 PO 0545 Pantoprazole Sodium 40 MG DAILY 08/21 0030 DC 08/23 IV 1001 Potassium Chloride 40 MEQ ONCE ONE 08/23 1045 DC 08/23 PO 08/23 1046 1147 Sertraline HCl 50 MG DAILY 08/21 1140 AC 08/23 PO 1001 Sodium Chloride 1,000 ML Q6H 08/20 2345 DC 08/23 IV 0458 Sulfasalazine 500 MG BID 08/21 1000 AC 08/23 PO 2115 Tramadol HCl 50 MG BID PRN 08/21 0015 AC PO Trazodone HCl 50 MG AT BEDTIME 08/21 2200 AC 08/23 PO 6 Last 24 Hrs of Lab/Herb Results Last 24 Hrs of Labs/Mics: Laboratory Tests 08/24/16 0636: Anion Gap 8, Estimated GFR 59 L, BUN/Creatinine Ratio 14.4, Magnesium 1.5 L, CBC w Diff NO MAN DIFF REQ, RBC 2.68 L, MCV 90.5, MCH 29.5, RDW 16.2 H, MPV 7.7, Gran % 70.9, Lymphocytes % 12.4 L, Monocytes % 12.9 H, Eosinophils % 3.5, Basophils % 0.3, Absolute Granulocytes 6.3, Absolute Lymphocytes 1.1 L, Absolute Monocytes 1.2 H, Absolute Eosinophils 0.3, Absolute Basophils 0, PUBS MCHC 32.6 L Assessment/Plan Assessment: Patient was an anticipated discharge today to a short-term nursing facility after being transferred from the intensive care unit to the general medicine floor. She reports persistence of her diarrhea and worsening of her shortness of breath and cough. She appears ill and in mild respiratory distress. PA and lateral Chest x-ray was ordered for further assessment of occult pulmonary disease. Small dose of intravenous Lasix was given. Patient will be monitored for another 24 hours for improvement of her respiratory symptoms prior to being discharged. Problem list: -Bright red blood per rectum, resolved -Acute blood loss anemia, resolved/stable -Diarrhea -Respiratory distress -History of COPD, not on home oxygen -Severe depression/anxiety Plan: -General medicine -TRC with DuoNeb when necessary -Supplemental oxygen, goal >92%, taper as tolerated -Monitor Hgb/HCT, transfusion goal >7.0 -Avoid NSAIDs -Continue PPI -GI consult following -Follow off antibiotics -Heart healthy diet -DVT prophylaxis -DNR/DNI -Anticipated discharge tomorrow to SNF Problem List: 1. Lower GI bleed Pain Ratin Pain Location: None Pain Goal: Remain pain free Pain Plan: As noted in plan Tomorrow's Labs & Rationales: CBC BEP Mg RAJIV BUCKNER MD 08/24/16 1632: Attending MD Review Statement Attending Statement Attending MD Statement: examined this patient, discuss w/resident/PA/MECHANICAL CAR CHECKER, agreed w/resident/PA/MECHANICAL CAR CHECKER, reviewed EMR data (avail), discussed with nursing, amended to note Attending Assessment/Plan: The patient was seen and discussed with house staff. Patient notes significant dyspnea, particularly with ambulation. CXR done shows some atelectasis. PT recommends STR and this was discussed with case management.
--- NOTE | 2016-08-24 12:56 | RADIOLOGY REPORT ---
EXAMINATION: XR CHEST CLINICAL INFORMATION: SOB, rhonchi and wheezing. COMPARISON: Chest 02/03/2016. TECHNIQUE: 2 views of the chest were obtained. FINDINGS: The lungs are hypoexpanded with bibasilar haziness question atelectasis. Markedly elevated right hemidiaphragm is noted. The heart size is enlarged with prominent pulmonary vascularity, question mild early congestion. There are old healed left rib fractures. IMPRESSION: Hypoexpanded lungs with cardiomegaly and increased pulmonary vascularity suggestive of mild congestion. There is bibasilar haziness question atelectasis. Moderately elevated right hemidiaphragm is stable 07/17/2026 exam.
[2016-08-24 14:29] VITALS: BP 138/78
[2016-08-24 23:13] VITALS: BP 134/80
[2016-08-25 06:25] VITALS: BP 140/68
[2016-08-25 08:06] LABS: ABSOLUTE BASOPHIL COUNT 0 /CUMM (0.0-0.2); ABSOLUTE EOSINOPHIL COUNT 0.4 /CUMM (0.0-0.7); ABSOLUTE GRANULOCYTE CT 4.9 /CUMM (1.4-6.5); ABSOLUTE LYMPH COUNT 1.3 /CUMM (1.2-3.4); ABSOLUTE MONOCYTE COUNT 0.8 /CUMM (0.10-0.60); BASOPHIL % 0.5 % (0.0-2.0); EOSINOPHIL % 5.4 % (0-5); GRANULOCYTE % 65.4 % (42.2-75.2); HEMATOCRIT 24.5 % (37-47); MEAN CORPUSCULAR HGB 29.9 PG (27.0-31.0); MEAN CORPUSCULAR VOLUME 90.8 FL (81.0-99.0); MEAN PLATELET VOLUME 7.7 FL (7.4-10.4); PLATELET COUNT 194 /CUMM (130-400); RBC DISTRIBUTION WIDTH 16.2 % (11.5-14.5); WHITE BLOOD CELL COUNT 7.4 /CUMM (4.8-10.8)
--- NOTE | 2016-08-25 08:27 | PN- Housestaff ---
YUSUF MARINELLI,[facility] 08/25/16 0827: Subjective Follow-up For: Follow-up For: Bright red blood per rectum Acute blood loss anemia Diarrhea Respiratory distress Subjective: Patient was seen and examined today. She reported abdominal pain across the abdomin 01/16, patient has been tolerating oral intake, denied N/V, bloody BM. Patient reported productive cough with yellow sputum, SOB on 2 L oxygen sat above 90%. patient remined afaibrile, vitals are stable. Review of Systems Constitutional: Reports: see HPI. Objective Last 24 Hrs of Vital Signs/I&O Vital Signs Date Time Temp Pulse Resp B/P Pulse O2 O2 Flow FiO2 Ox Delivery Rate 08/25 1024 88 138/86 08/25 1023 88 138/86 08/25 0923 99 Nasal 2.0L Cannula 08/25 0800 96 Nasal 2.0L Cannula 08/25 0625 97.7 70 18 140/68 97 Nasal 2.0L Cannula 08/25 0000 98 Nasal 2.0L Cannula 08/24 2313 98.8 78 20 134/80 98 Nasal 2.0L Cannula 08/24 2134 78 134/80 08/24 1639 Nasal 2.0L Cannula Intake & Output 08/25 1600 08/25 0800 08/25 0000 Intake Total 120 240 Output Total Balance 120 240 Intake, Oral 120 240 Physical Exam General Appearance: Alert, Oriented X3, Cooperative, No Acute Distress Skin: No Rashes, No Breakdown, No Significant Lesion Cardiovascular: Regular Rate, Normal S1, Normal S2, No Murmurs Lungs: Clear to Auscultation, Normal Air Movement Abdomen: Normal Bowel Sounds, Soft, Mild tenderness on deep palpation of LLQ Neurological: Normal Gait, Normal Speech, Strength at 5/5 X4 Ext, Normal Tone, Sensation Intact, Cranial Nerves 3-12 NL, Reflexes 2+ Extremities: No Clubbing, No Cyanosis, Normal Pulses, Bilateral trace pedal edema Assessment/Plan Assessment: Patient was an anticipated discharge today to a short-term nursing facility after being transferred from the intensive care unit to the general medicine floor. She reports persistence of her diarrhea and worsening of her shortness of breath and cough. She appears ill and in mild respiratory distress. PA and lateral Chest x-ray was ordered for further assessment of occult pulmonary disease. Small dose of intravenous Lasix was given. Patient will be monitored for another 24 hours for improvement of her respiratory symptoms prior to being discharged. Problem list: -Bright red blood per rectum, resolved -Acute blood loss anemia, resolved/stable -Diarrhea -Respiratory distress -History of COPD, not on home oxygen -Severe depression/anxiety Plan: -TRC with DuoNeb when necessary -Supplemental oxygen, goal >92%, taper as tolerated -Monitor Hgb/HCT, transfusion goal >7.0 -Avoid NSAIDs -Continue PPI -Continue off antibiotic -Heart healthy diet -DVT prophylaxis -DNR/DNI Problem List: 1. Lower GI bleed Pain Ratin Pain Location: Abdomen pain Pain Goal: Pain 4 or less Pain Plan: Mild pain pathway Tomorrow's Labs & Rationales: CBC RAJIV BUCKNER MD 08/25/16 1410: Attending MD Review Statement Attending Statement Attending MD Statement: examined this patient, discuss w/resident/PA/SVP RESEARCH AND STRATEGIC ANALYSIS, agreed w/resident/PA/SVP RESEARCH AND STRATEGIC ANALYSIS, reviewed EMR data (avail), discussed with nursing, amended to note Attending Assessment/Plan: The patient continues to note dyspnea. Some abdominal discomfort today. Will observe. Will need rehab and case work aide aware. Follow H/H, and pulse ox.
[2016-08-25 15:04] VITALS: BP 134/60
[2016-08-25 22:16] VITALS: BP 132/68
[2016-08-26 06:59] VITALS: BP 130/62
--- NOTE | 2016-08-26 07:05 | PN- Housestaff ---
LYNDSEY MARINELLI,NANCY 08/26/16 0704: Subjective Follow-up For: Bright red blood per rectum Acute blood loss anemia Diarrhea Respiratory distress Subjective: Patient seen and examined. She is seen sitting upright in bed resting comfortably enjoying her breakfast. She appears to be in no acute distress. She reports "feeling crappy" and admits to persistent nausea. She otherwise has no complaints. Additionally she denies any headache, fever, chills, chest pain, palpitations, shortness of breath, cough, vomiting, diarrhea consult, constipation. No overnight events reported. Review of Systems Constitutional: Reports: see HPI. Objective Last 24 Hrs of Vital Signs/I&O Vital Signs Date Time Temp Pulse Resp B/P Pulse O2 O2 Flow FiO2 Ox Delivery Rate 08/26 0933 80 130/62 08/26 0933 80 130/62 08/26 0659 98.7 80 18 130/62 94 08/26 0538 95 Room Air 08/26 0000 Nasal 0.5L Cannula 08/25 2216 96.7 80 22 132/68 98 Nasal Cannula 08/25 2037 79 140/70 08/25 1554 75 98 Nasal 1.0L Cannula 08/25 1504 98.2 82 18 134/60 98 Room Air 08/25 1024 88 138/86 08/25 1023 88 138/86 Intake & Output 08/26 1600 08/26 0800 08/26 0000 Intake Total 480 480 Output Total Balance 480 480 Intake, Oral 480 480 Physical Exam General Appearance: Alert, Oriented X3, Cooperative, No Acute Distress Other Physical Findings: General -well-developed, well-nourished elderly woman in no acute distress HEENT - NCAT, PERRL, EOMI, anicteric sclera Cardio - S1, S2 w/o murmurs/gallops/rubs Resp - CTA bilaterally w/o wheezing/rhochi/crackles GI - soft, nontender, nondistended, bowel sounds present Neuro - Awake and alert, CN II - XII grossly intact Extremities - no edema, pulses intact Current Medications: Current Medications Sig/Raza Start time Last Medication Dose Route Stop Time Status Admin Acetaminophen 650 MG .STK-MED ONE 08/26 2027 DC PO 08/25 2028 Acetaminophen 650 MG Q6P PRN 08/215 AC 08/25 PO 2031 Albuterol Sulfate 3 ML Q6PRN PRN 08/21 1145 AC 08/22 INH 1938 Budesonide/ 2 PUF BID 08/21 1000 AC 08/26 Formoterol Fumarate INH 0933 Carvedilol 6.25 MG BID 08/21 2200 AC 08/26 PO 0933 Ferrous Sulfate 325 MG DAILY 08/21 1000 AC 08/26 PO 0933 Folic Acid 1 MG DAILY 08/21 1000 AC 08/26 PO 0933 Furosemide 20 MG DAILY 08/21 1619 AC 08/26 PO 0933 Gabapentin 600 MG DAILY 08/21 1145 AC 08/26 PO 0933 Hydrochlorothiazide 25 MG DAILY 08/21 1619 AC 08/26 PO 0933 Hydroxychloroquine 200 MG BID 08/21 1000 AC 08/26 Sulfate PO 0933 Latanoprost 1 GTT AT BEDTIME 08/21 2200 AC 08/25 OPH 2034 Lisinopril 10 MG DAILY 08/21 1630 AC 08/26 PO 0933 Metoclopramide HCl 10 MG ONCE ONE 08/26 0830 DC PO 08/26 0831 Morphine Sulfate 2 MG Q4P PRN 08/21 0045 AC 08/23 IV 1817 Naphazoline HCl/ 1 GTT DAILY NEEDED PRN 08/21 0015 AC Pheniramine Maleate OPH Omeprazole 40 MG DAILY AC 08/24 0700 AC 08/26 PO 0534 Sertraline HCl 50 MG DAILY 08/21 1140 AC 08/26 PO 0933 Sulfasalazine 500 MG BID 08/21 1000 AC 08/26 PO 0933 Tramadol HCl 50 MG BID PRN 08/21 0015 AC 08/25 PO 2338 Trazodone HCl 50 MG AT BEDTIME 08/21 2200 AC 08/25 PO 2038 Last 24 Hrs of Lab/Herb Results Last 24 Hrs of Labs/Mics: Laboratory Tests 08/26/16 0645: CBC w Diff NO MAN DIFF REQ, RBC 2.71 L, MCV 90.3, MCH 29.9, RDW 15.6 H, MPV 7.8, Gran % 64.4, Lymphocytes % 19.6 L, Monocytes % 10.1 H, Eosinophils % 5.4 H, Basophils % 0.5, Absolute Granulocytes 4.6, Absolute Lymphocytes 1.4, Absolute Monocytes 0.7 H, Absolute Eosinophils 0.4, Absolute Basophils 0, PUBS MCHC 33.1 Assessment/Plan Assessment: Patient continues to report feeling nauseated with mild abdominal discomfort. She has an anticipated discharge to [facility] facility today. She is no longer complaining of any shortness of breath. Hemoglobin remained stable on routine monitoring. Bright red blood per rectum/acute blood loss anemia: Resolved/stable -Gen. medicine -Monitor vital signs for hemodynamic instability -Monitor hemoglobin/hematocrit, transfuse to >7.0 -Avoid NSAIDs -PRBC transfused: 2 -Omeprazole 40 mg by mouth daily -Ferrous sulfate 325 mg by mouth daily -Folic Acid 1mg PO Daily -PT assessment: Assist 1, short-term rehabilitation -GI consult -Daily CBC History of COPD Not on home oxygen. Chest x-ray demonstrated hypoexpanded lungs with cardiomegaly and increased pulmonary vascular congestion suggestive of mild congestion and bibasilar haziness with questionable atelectasis. -TRC with albuterol/ipratropium when necessary -Supplemental oxygen, goal >92%, wean as tolerated -Symbicort -Hydrochlorothiazide 25 mg by mouth daily Rheumatoid arthritis -Sulfasalazine 500 mg by mouth twice a day -Hydroxychloroquine 200 mg by mouth twice a day Hypertension -Lisinopril 10 mg by mouth daily -Coreg 6.25 mg by mouth twice a day History of anxiety/depression-Zoloft 50 mg by mouth daily Pain plan-acetaminophen/tramadol/morphine Diet-Heart healthy diet DVT prophylaxis-ALPS CODE STATUS-DNR/DNI Problem List: 1. Acute blood loss anemia Pain Ratin Pain Location: None Pain Goal: Remain pain free Pain Plan: As noted in plan Tomorrow's Labs & Rationales: None RAJIV BUCKNER MD 08/26/16 4530: Attending MD Review Statement Attending Statement Attending MD Statement: examined this patient, discuss w/resident/PA/COMPENSATION ANALYST, agreed w/resident/PA/COMPENSATION ANALYST, reviewed EMR data (avail), discussed with nursing, discussed with case mgmt, amended to note Attending Assessment/Plan: The patient was seen and discussed with house staff. Agree with plan of care.
[2016-08-26 08:19] LABS: ABSOLUTE BASOPHIL COUNT 0 /CUMM (0.0-0.2); ABSOLUTE EOSINOPHIL COUNT 0.4 /CUMM (0.0-0.7); ABSOLUTE GRANULOCYTE CT 4.6 /CUMM (1.4-6.5); ABSOLUTE LYMPH COUNT 1.4 /CUMM (1.2-3.4); ABSOLUTE MONOCYTE COUNT 0.7 /CUMM (0.10-0.60); BASOPHIL % 0.5 % (0.0-2.0); EOSINOPHIL % 5.4 % (0-5); GRANULOCYTE % 64.4 % (42.2-75.2); HEMATOCRIT 24.4 % (37-47); MEAN CORPUSCULAR HGB 29.9 PG (27.0-31.0); MEAN CORPUSCULAR HGB CONC 33.1 G/DL (33.0-37.0); MEAN CORPUSCULAR VOLUME 90.3 FL (81.0-99.0); MEAN PLATELET VOLUME 7.8 FL (7.4-10.4); PLATELET COUNT 230 /CUMM (130-400); RBC DISTRIBUTION WIDTH 15.6 % (11.5-14.5); RED BLOOD CELL CT 2.71 /CUMM (4.20-5.40); WHITE BLOOD CELL COUNT 7.1 /CUMM (4.8-10.8)
[2016-08-26 14:45] VITALS: BP 130/62
[2016-08-26 15:41] VITALS: BP 126/60
== END 2016-08-26 16:40 | DRG 378 ==
LOC: ENRESERVTM → ENRESERVDT → ERH 21:33 → 2NB 22:56 → ENPENDDIS 22:56 → CRI 22:56 → ERHI 22:56 → 2NB 22:56 → CRI 08-21 11:04 → 2NB 08-23 13:05
PROVIDERS: Internal Medicine; Internal Medicine Interventional Cardiology; Physician Assistant; Radiology Diagnostic Radiology; Student in an Organized Health Care Education/Training Program; ADMIT Internal Medicine
PROC: 0DJ08ZZ Inspection of Upper Intestinal Tract, Via Natural or Artificial Opening Endoscopic (ICD-10-PCS; principal; 2016-08-21)
PROC: 0DJD8ZZ Inspection of Lower Intestinal Tract, Via Natural or Artificial Opening Endoscopic (ICD-10-PCS; principal; 2016-08-21)
PROC: 30233N1 Transfusion of Nonautologous Red Blood Cells into Peripheral Vein, Percutaneous Approach (ICD-10-PCS; 2016-08-21)
DX: K57.31 Diverticulosis of large intestine without perforation or abscess with bleeding (principal); D62 Acute posthemorrhagic anemia; J44.9 Chronic obstructive pulmonary disease, unspecified; M06.9 Rheumatoid arthritis, unspecified; I10 Essential (primary) hypertension; K21.9 Gastro-esophageal reflux disease without esophagitis; K44.9 Diaphragmatic hernia without obstruction or gangrene; F32.9 Major depressive disorder, single episode, unspecified; F41.9 Anxiety disorder, unspecified; K22.4 Dyskinesia of esophagus; K58.9 Irritable bowel syndrome, unspecified; Z86.010 Personal history of colon polyps; K64.8 Other hemorrhoids; E87.6 Hypokalemia; E83.42 Hypomagnesemia; K31.7 Polyp of stomach and duodenum; E66.9 Obesity, unspecified; Z68.30 Body mass index [BMI] 30.0-30.9, adult
CPT/HCPCS: 2NBP; CCU; ERO; 36415; 73502-LT; 74000; 74174; 82436; 86920; 87040; 93005; 93010; 96361; 96374; 97110-GO; 97116-GO; 97161-GP; 97530-GO; 99291; J0360; J0696; J1940; J2060; J3490; J7040; P9016

== ENCOUNTER 2016-11-19 20:13 | Emergency (ER) | payer OTHER, MEDICARE ==
[~2016-11-19 20:13] MED LIST changes: +COLACE100 M1 PO; +COREG6.25 M1 PO; +GABAPENTIN600 M1 PO; +LASIX20 M1 PO; +LOMOTIL 2.5-0.1 EACH PO; +MIRALAX17 G1 PO; +VITAMIN B-12100 MC1 PO; +VITAMIN D1000 UNI1 PO
[2016-11-19 21:09] LABS: ABSOLUTE BASOPHIL COUNT 0 /CUMM (0.0-0.2); ABSOLUTE EOSINOPHIL COUNT 0.3 /CUMM (0.0-0.7); ABSOLUTE GRANULOCYTE CT 4.2 /CUMM (1.4-6.5); ABSOLUTE LYMPH COUNT 1.7 /CUMM (1.2-3.4); ABSOLUTE MONOCYTE COUNT 0.6 /CUMM (0.10-0.60); BASOPHIL % 0.4 % (0.0-2.0); EOSINOPHIL % 5.1 % (0-5); GRANULOCYTE % 61.3 % (42.2-75.2); HEMATOCRIT 32.5 % (37-47); MEAN CORPUSCULAR HGB 30.1 PG (27.0-31.0); MEAN CORPUSCULAR HGB CONC 33.5 G/DL (33.0-37.0); MEAN PLATELET VOLUME 6.9 FL (7.4-10.4); PLATELET COUNT 249 /CUMM (130-400); RBC DISTRIBUTION WIDTH 18.3 % (11.5-14.5); RED BLOOD CELL CT 3.61 /CUMM (4.20-5.40); WHITE BLOOD CELL COUNT 6.8 /CUMM (4.8-10.8)
--- NOTE | 2016-11-19 22:15 | ED GENERAL ADULT ---
History of Present Illness General Chief Complaint: General Adult Stated Complaint: INFECTION TO ?RLE Source: patient, family Exam Limitations: no limitations Vital Signs & Intake/Output Vital Signs & Intake/Output Vital Signs Date Time Temp Pulse Resp B/P B/P Pulse O2 O2 Flow FiO2 Mean Ox Delivery Rate 11/19 2233 98.0 72 20 140/80 98 Room Air 11/198 97.8 63 16 193/70 96 Room Air Allergies Coded Allergies: propoxyphene (08/11/15) Reconcile Medications Albuterol Sulfate (Proair Hfa) 8.5 GM HFA.AER.AD 2 PUF INH Q4-6 PRN PRN COPD (Reported) Carvedilol (Coreg) 6.25 MG TABLET 1 TAB PO BID HEART (Reported) Cephalexin (Keflex) 500 MG CAPSULE 1 CAP PO TID CELLULITIS Cholecalciferol (Vitamin D3) (Vitamin D) 1,000 UNIT CAPSULE 5 TAB PO DAILY SUPPLEMENT (Reported) Cyanocobalamin (Vitamin B-12) (Vitamin B-12) 100 MCG TABLET 1 TAB PO DAILY SUPPLEMENT (Reported) Diclofenac Sodium (Voltaren) 1 % GEL..GRAM. 1 GM TOP 4 TIMES/DAY PAIN ( Reported) apply to affected area(s) Diphenoxylate HCl/Atropine (Lomotil 2.5-0.025 MG Tablet) 2.5 MG-0.025 MG TABLET 1 TAB PO DAILY PRN DIARRHA (Reported) Docusate Sodium (Colace) 100 MG CAPSULE 1 CAP PO BID CONSTIPATION (Reported) Enalapril Maleate 10 MG TABLET 1 TAB PO DAILY HTN (Reported) Esomeprazole (Nexium) 40 MG CAPSULE.DR 1 CAP PO DAILY GERD (Reported) Ferrous Sulfate 325 MG TABLET 1 TAB PO DAILY SUPPLEMENT (Reported) Fluticasone/Salmeterol (Advair 250-50 Diskus) 1 EACH BLST.W.DEV 1 PUF INH BID COPD (Reported) Folic Acid 1 MG TABLET 1 TAB PO DAILY SUPPLEMENT (Reported) Furosemide (Lasix) 20 MG TABLET 1 TAB PO DAILY WATER PILL (Reported) Gabapentin 600 MG TABLET 1 TAB PO DAILY neuropathy Hydrochlorothiazide 25 MG TABLET 1 TAB PO DAILY HTN (Reported) Hydroxychloroquine Sulfate 200 MG TABLET 1 TAB PO BID RHEUMATOID ARTHRITIS ( Reported) Mometasone Furoate (Nasonex) 17 GM SPRAY.PUMP 1-2 SPRAY NASB DAILY ALLERGY ( Reported) Olopatadine HCl (Pataday) 2.5 ML DROPS 1 GTT OPH DAILY PRN ALLERGY (Reported) Polyethylene Glycol 3350 (Miralax) 17 GRAM POWD.PACK 1 PAC PO DAILY CONSTIPATION (Reported) dissolve in water Sertraline HCl 50 MG TABLET 1 TAB PO DAILY DEPRESSION (Reported) Sulfasalazine (Sulfazine EC) 500 MG TABLET.DR 1 TAB PO BID GI (Reported) Tramadol HCl 50 MG TABLET 1 TAB PO BID PRN PAIN (Reported) Travoprost (Travatan Z) 5 ML DROPS 1 GTT OPH QPM GLAUCOMA (Reported) Trazodone HCl 100 MG TABLET 0.5 TAB PO QPM INSOMNIA (Reported) Triage Note: TRIAGE: SENT IN ON RECOMMENDATION BY VISITNG NURSE FOR RLE CELLULITIS. AREA TO R MEDIAL TIBIAL AREA RED, WARM, WITH SEROUS DRAINAGE TO BANDAGE. PT DENIES FEVERS AT HOME. AFEBRILE IN TRIAGE. DENIES OTHER SYMPTOMS, DENIES CP/SOB. SLIGHT TREMOR NOTED. Triage Nurses Notes Reviewed? yes Onset: Abrupt Duration: week(s): (3-4) Timing: single episode today Injury Environment: home Severity: mild, moderate Severity Numbers: 4 No Modifying Factors: none LMP (ages 10-50): post menopausal : No Patient currently breastfeeds: No HPI: 89-year-old female with history of hypertension and COPD since complaining of pain and redness in her right lower extremity. Patient reports that about 1 month ago she scratched herself on the right lower extremity causing a small abrasion. Since then the area HAS become more painful red and slightly swollen. She denies any fevers, discharge chest pain or shortness of breath. No history of diabetes. Patient reports that pain is currently located around the affected area and does not radiate. She rates as a 4 out of 10 and is worse with touching the area and any type of movement. No alleviating factors. She is not taking any meds for pain. No other associated symptoms. (MANUEL ARGUELLES PA-C) Past History Travel History Traveled to [place] past 21 day No Medical History Any Pertinent Medical History? see below for history Neurological: NEUROPATHY ESSENTIAL TREMOR EENT: glaucoma ("legally blind"), hearing loss Cardiovascular: hypertension, mitral regurgitation, MILD PULM HTN Respiratory: COPD, pneumonia (12/2012), pulmonary hypertension (mild ) Gastrointestinal: hiatal hernia, irritable bowel syndrome, lactose intolerance, umbilical hernia, diverticulosis coli hx colon adenoma SPASTIC ESOPHAGUS Hepatic: NONE Renal: intermittent CKD Musculoskeletal: degen joint disease, fracture, osteoarthritis, rheumatoid arthritis, osteopenia T12 COMPRESSION FRACTURE STEVEN ORIF HIPS Psychiatric: anxiety, depression, insomnia Endocrine: PREDIABETES Blood Disorders: IRON DEFIENCY ANEMIA VS ANEMIA OF CHRONIC DISEASE Cancer(s): NONE 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 FATHER (smoker). , Age 60+; Cause: Lung cancer. Hx Contributory? Yes (MANUEL ARGUELLES PA-C) Review of Systems Review of Systems Constitutional: Reports: no symptoms. EENTM: Reports: no symptoms. Respiratory: Reports: no symptoms. Cardiovascular: Reports: no symptoms. GI: Reports: no symptoms. Genitourinary: Reports: no symptoms. Musculoskeletal: Reports: no symptoms. Skin: Reports: see HPI, change in skin color (erythema). Neurological/Psychological: Reports: no symptoms. Hematologic/Endocrine: Reports: no symptoms. Immunologic/Allergic: Reports: no symptoms. All Other Systems: Reviewed and Negative (MANUEL ARGUELLES PA-C) Physical Exam Physical Exam General Appearance: well developed/nourished, no apparent distress, alert, awake , anxious Head: atraumatic, normal appearance Eyes: Bilateral: normal appearance, PERRL, EOMI. Ears, Nose, Throat: normal pharynx, normal ENT inspection, hearing grossly normal Neck: normal inspection, supple, full range of motion Respiratory: normal breath sounds, chest non-tender, no respiratory distress Cardiovascular: regular rate/rhythm, normal peripheral pulses Peripheral Pulses: 2+ tibialis posterior (R), 2+ tibialis posterior (L), 2+ dorsalis pedis (R), 2+ dorsalis pedis (L) Gastrointestinal: normal bowel sounds, soft, non-tender, no organomegaly Back: normal inspection, normal range of motion Extremities: normal capillary refill, normal range of motion, no edema, tenderness (RLE) Neurologic/Psych: no motor/sensory deficits, awake, alert, oriented x 3, normal gait, normal mood/affect Reflexes: 2+: knee (R), knee (L). Skin: normal color, warm/dry Lymphatic: no anterior cervical anjelica Comments: On the lateral aspect of the right lower extremity there are 2 superficial abrasions with surrounding erythema. The area is tender to palpation and mildly swollen. No lymphatic streaking. There is no focal fluctuant areas noted, no discharge no induration. Full range of motion of the right lower extremity is intact. Neurovascular supply intact. Core Measures ACS in differential dx? No CVA/TIA Diagnosis: No Severe Sepsis Present: No Septic Shock Present: No (MANUEL ARGUELLES PA-C) Progress Differential Diagnoses I considered the following diagnoses in my evaluation of the patient: Cellulitis , abscess, DVT, sepsis, abrasion, allergic reaction Plan of Care: Orders Procedure Date/time Status COMPREHENSIVE METABOLIC PANEL 11/19 2037 Complete CBC WITHOUT DIFFERENTIAL 11/19 2037 Complete Laboratory Tests 11/19/162046: Anion Gap 11, Estimated GFR > 60, BUN/Creatinine Ratio 22.5, Glucose 84, Calcium 9.8, Total Bilirubin 0.5, AST 42 H, ALT 38, Alkaline Phosphatase 138 H, Total Protein 6.6, Albumin 4.0, Globulin 2.6, Albumin/Globulin Ratio 1.5 11/19/162040: CBC w Diff NO MAN DIFF REQ, RBC 3.61 L, MCV 90.0, MCH 30.1, RDW 18.3 H, MPV 6.9 L, Gran % 61.3, Lymphocytes % 24.5, Monocytes % 8.7, Eosinophils % 5.1 H, Basophils % 0.4, Absolute Granulocytes 4.2, Absolute Lymphocytes 1.7, Absolute Monocytes 0.6, Absolute Eosinophils 0.3, Absolute Basophils 0, PUBS MCHC 33.5 10:43 PM patient seen and evaluated. At this time saline localize the right lower extremity. There is no signs of systemic infection or abscess. Wound was cleaned with Betadine and Xeroform dressing applied. Patient was started on cephalexin 3 times a day 10 days. She'll change her dressing and apply Xeroform once a day. Patient has an AID at home that can help with the dressing changes. Follow up with her primary care doctor this week for wound check returns emergent department as needed. All previous records reviewed and discussed results with patient. Blood work is similar to previous. Blood pressure is rechecked manually at 140/80. Discussed case with Dr. Ervin who is in agreement with the plan. Patient is feeling well and is nontoxic appearing. She is in agreement with the plan. (KINDRA PACHECO,MANUEL) Initial ED EKG: none (KINDRA PACHECO,MANUEL) Departure Departure Disposition: HOME OR SELF CARE Condition: Stable Clinical Impression Primary Impression: Cellulitis and abscess of right lower extremity Referrals: RADHA PLASCENCIA MD (PCP/Family) Additional Instructions: Breasts daily clean and dry. Change dressing applied Xeroform once daily. Keep the leg elevated Take cephalexin as directed for the full course. Use Tylenol as needed for pain. Follow-up Friday with her primary care doctor this week. Return with any concerns. Please go over all results of today's visit with your primary care doctor. Contact your primary care doctor to let them know you were here in the emergency room. There may be nonspecific findings which may not be related to your visit today here in the emergency room but may require further evaluation and chronic monitoring by your primary care doctor. If you had a laceration today the chance of foreign body always remains. You should follow-up with your primary care doctor for recheck in 3-5 days for a wound check. If you had an x-ray done there is a chance that a fracture could have been missed on initial read and you should follow-up with your primary care doctor for repeat x-rays if symptoms persist. If your blood pressure was elevated here in the emergency room please have rechecked by her primary care doctor within the next 48 hours by your primary care doctor. If you were prescribed a narcotic here in the emergency room or any type of controlled substances you're not allowed to drive while taking this medication or operate any type of heavy machinery. Narcotics can make you feel lightheaded dizziness nausea and can cause constipation. You may need to warehouse order picker a stool softener. Thank you for choosing emergency room. Please return to the emergency room immediately if you have any other concerns worsening of symptoms. Departure Forms: Customer Survey General Discharge Information Prescriptions: Current Visit Scripts Cephalexin (Keflex) 1 CAP PO TID #30 CAP (MANUEL ARGUELLES PA-C) PA/COMPLIANCE COUNSEL Co-Sign Statement Statement: ED Attending supervision documentation- [X] I saw and evaluated the patient. I have also reviewed all the pertinent lab results and diagnostic results. I agree with the findings and the plan of care as documented in the PA's/COMPLIANCE COUNSEL's documentation. [X] I have reviewed the ED Record and agree with the PA's/COMPLIANCE COUNSEL's documentation. [] Additions or exceptions (if any) to the PAs/COMPLIANCE COUNSEL's note and plan are summarized below: [] (PALMIRA MARINELLI,BEATA Bauman) Critical Care Note Critical Care Note Critical Care Time: non-applicable (MANUEL ARGUELLES PA-C)
[2016-11-19 22:33] VITALS: BP 140/80
[2016-11-19] MEDS ORDERED: KEFLEX500 M1 PO (22:47)
== END 2016-11-19 23:00 ==
LOC: ERH 20:13
PROVIDERS: Emergency Medicine
DX: L02.415 Cutaneous abscess of right lower limb (principal); L03.115 Cellulitis of right lower limb